=== PATIENT | male | born 1950 | race Caucasian/White ===

== ENCOUNTER → 2016-12-18 | Outpatient (CLI) | payer OTHER ==
[~2016-12-18] MED LIST: B-COTAB18 PO; CALC500T83 PO; CALC600T24 PO; CHOL100010 PO; DOXY100C2 PO; EPP3/2 IM; HYOS1TAB PO; INSPMPNVLG; LATA0.5S OPL; MULT-506 PO
[2016-12-18 19:26] LABS: ALT/SGPT 36 U/L (12-78); AST/SGOT 24 U/L (15-37); BLOOD UREA NITROGEN 17 mg/dl (7-18); BUN/CREATININE RATIO 18.8 (10-20); CALCIUM 8.7 mg/dl (8.5-10.1); CARBON DIOXIDE 28 mmol/L (21-32); CHLORIDE 104 mmol/L (98-107); CREATININE 0.91 mg/dl (0.60-1.40); GLUCOSE 176 mg/dl (70-99); POTASSIUM 4.1 mmol/L (3.5-5.1); SODIUM 140 mmol/L (136-145)
[2016-12-18 19:34] LABS: RATIO 16.3 mcg/mg (0-30.0)
[2016-12-18 19:41] LABS: ALB/GLOB RATIO 1.2 (0.9-2); ALKALINE PHOSPHATASE 144 U/L (45-117); CHOLESTEROL 140 mg/dl (0-200); CHOLESTEROL/HDL RATIO 1.6; HDL CHOLESTEROL 85 mg/dl; LDL CHOLESTEROL CALCULATED 36 mg/dl; TRIGLYCERIDES 97 mg/dl (0-150); VERY LOW DENSITY LIPOPROT CALC 19 mg/dl
[2016-12-19 06:17] LABS: ESTIMATED AVERAGE GLUCOSE 174 mg/dl; HA1C FLAG Normal (Normal)
== END | disposition home or self-care (01) ==
LOC: C.LAB 18:27
PROVIDERS: ATTEND Nurse Practitioner Adult Health
DX: R97.20 Elevated prostate specific antigen [PSA] (principal); E10.9 Type 1 diabetes mellitus without complications

== ENCOUNTER 2017-02-11 11:32 | Inpatient (IN) | payer OTHER ==
[~2017-02-11] VITALS: Ht 177.8 cm; Wt 67.1 kg
[~2017-02-11 11:32] MED LIST changes: -CALC600T24 PO; -DOXY100C2 PO; -EPP3/2 IM; -HYOS1TAB PO; -LATA0.5S OPL
--- NOTE | 2017-02-11 11:47 | EMERGENCY ROOM VISIT NOTE ---
History Report prepared by Ravinder: Jamaica Balderas Under the Supervision of: Dr. James Gupta D.O. First contact with patient: 11:39 Chief Complaint: BRADYCARDIA Stated Complaint: LOW HEART RATE Nursing Triage Summary: Pt sent by Dr. Bergeron. Lightheaded when standing. Denies cp or sob. SOB yesterday when mowing the grass. Reportedly pt is in a complete heart block, sent for pacemaker. History of Present Illness The patient is a 66 year old male who presents to the Emergency Room with complaints of dizziness and palpitations. The patient is a 66-year-old male who started noticing yesterday that he was very short of breath especially with exertion. Here members trying to both on when he started having dizziness and difficulty breathing. The patient states he checked his blood pressure through the night with a blood pressure machine and he noticed that his pulse rate was very low. 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 The patient presents with an EKG as an outpatient as reveal a third-degree heart block with an underlying right bundle-branch block pattern. 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 He denies having any fevers. He denies having any recent illnesses or joint aches. The patient is a diabetic but is never had similar symptoms in the past. The patient denies nausea or vomiting. He states his symptoms are significantly improved at rest. Source of History: patient Onset: yesterday Position: other (global) Quality: other (dizziness, palpitations) Timing: other (persistent) Modifying Factors (Relieving): rest Associated Symptoms: + SOB, No fevers, No nausea, No vomiting Note: Pt reports slow heart rate. Pt denies recent illness or joint ache. Review of Systems See HPI for pertinent positives & negatives. A total of 10 systems reviewed and were otherwise negative. Past Medical & Surgical Medical Problems: (1) Celiac disease (2) Complete heart block (3) Diabetes type I (4) Glaucoma Family History Diabetes mellitus Kidney disease Kidney stones Social History Smoking Status: Never Smoker Smokeless Tobacco Use: No Alcohol Use: occasionally Drug Use: none Marital Status: Housing Status: lives with significant other Current/Historical Medications Scheduled B-Complex Vitamins (Vitamin B Complex), 1 TAB PO QAM Calcium W/ Vitamin D (Calcium/Vitamin D), 1 TAB PO 2XWK Cholecalciferol (Vitamin D), 4,000 UNITS PO QAM Doxycycline Hyclate (Vibramycin), 1 CAP PO UD Insulin Aspart (novoLOG INSULIN PUMP ), 1 EA N/A UD Latanoprost (Xalatan 0.005% Oph Susan), 1 DROPS OPL HS Multivitamin (Multivitamin), 1 TAB PO QAM Scheduled PRN Epinephrine (Epipen), 0.3 MG IM UD PRN for bee sting Hyoscyamine Sulfate (Levsin), 0.125 MG PO TID PRN for bloating, GI discomfort Allergies Coded Allergies: BEE STING (Verified Allergy, Severe, anaphylaxis, 02/11/17) Latex1 -Allergic Contact Dermititis (Verified Adverse Reaction, Mild, BAD TASTE IN MOUTH, 03/29/16) Physical Exam Vital Signs Date Time Temp Pulse Resp B/P Pulse Ox O2 Delivery O2 Flow Rate FiO2 02/11/17 12:17 34 14 141/54 100 Nasal Cannula 2.0 02/11/17 12:04 34 02/11/17 12:02 36 12 135/51 100 02/11/17 11:55 99 Nasal Cannula 2.0 02/11/17 11:55 99 Nasal Cannula 2.0 02/11/17 11:47 44 02/11/17 11:35 36.4 38 18 161/70 98 Room Air Physical Exam GENERAL: Patient is awake alert in no acute distress patient is resting comfortably and showing no signs of anxiety EYES: The conjunctivae are clear. The pupils are round and reactive. EARS, NOSE, MOUTH AND THROAT: The nose is without any evidence of any deformity. Mucous membranes are moist tongue is midline NECK: The neck is nontender and supple. RESPIRATORY: Normal respiratory effort is noted there is no evidence of wheezing rhonchi or rales CARDIOVASCULAR: Bradycardic rate was noted auscultation. No definite murmur was noted. GASTROINTESTINAL: The abdomen is soft. Bowel sounds are present in all quadrants. Abdomen is nontender MUSCULOSKELETAL/EXTREMITIES: There is no evidence of gross deformity full range of motion is noted in the hips and shoulders SKIN: There is no obvious evidence of any rash. There are no petechiae, pallor or cyanosis noted. NEUROLOGIC: Patient is awake alert and oriented x3. Medical Decision & Procedures ER Provider Diagnostic Interpretation: X-ray results as stated below per interpretation by me and the radiologist. SINGLE VIEW CHEST CLINICAL HISTORY: Dyspnea. FINDINGS: An AP, portable, upright chest radiograph is obtained. No prior studies are available for comparison at the time of dictation. The examination is degraded by portable technique and patient rotation. Cardiac pads are in place. The cardiomediastinal silhouette is unremarkable. The lungs and pleural spaces are clear. No pneumothorax is seen. The bony thorax is grossly intact. IMPRESSION: No acute cardiopulmonary abnormality. Electronically signed by: Ezio Hammer M.D. 02/11/2017 12:03 PM Dictated Date/Time: 02/11/2017 12:02 PM Laboratory Results 02/11/17 11:51 Red Blood Count 4.52, Mean Corpuscular Volume 95.8, Mean Corpuscular Hemoglobin 32.5, Mean Corpuscular Hemoglobin Concent 33.9, Mean Platelet Volume 11.5, Neutrophils (%) (Auto) 61.7, Lymphocytes (%) (Auto) 28.3, Monocytes (%) (Auto) 8.7, Eosinophils (%) (Auto) 0.8, Basophils (%) (Auto) 0.3, Neutrophils # (Auto) 3.71, Lymphocytes # (Auto) 1.70, Monocytes # (Auto) 0.52, Eosinophils # (Auto) 0.05, Basophils # (Auto) 0.02 02/11/17 11:51 Test 02/11/17 11:51 02/11/17 11:56 White Blood Count 6.01 K/uL (4.8-10.8) Red Blood Count 4.52 M/uL (4.7-6.1) Hemoglobin 14.7 g/dL (14.0-18.0) Hematocrit 43.3 % (42-52) Mean Corpuscular Volume 95.8 fL (80-100) Mean Corpuscular Hemoglobin 32.5 pg (25-34) Mean Corpuscular Hemoglobin Concent 33.9 g/dl (32-36) Platelet Count 180 K/uL (130-400) Mean Platelet Volume 11.5 fL (7.4-10.4) Neutrophils (%) (Auto) 61.7 % Lymphocytes (%) (Auto) 28.3 % Monocytes (%) (Auto) 8.7 % Eosinophils (%) (Auto) 0.8 % Basophils (%) (Auto) 0.3 % Neutrophils # (Auto) 3.71 K/uL (1.4-6.5) Lymphocytes # (Auto) 1.70 K/uL (1.2-3.4) Monocytes # (Auto) 0.52 K/uL (0.11-0.59) Eosinophils # (Auto) 0.05 K/uL (0-0.5) Basophils # (Auto) 0.02 K/uL (0-0.2) RDW Standard Deviation 47.6 fL (36.4-46.3) RDW Coefficient of Variation 13.5 % (11.5-14.5) Immature Granulocyte % (Auto) 0.2 % Immature Granulocyte # (Auto) 0.01 K/uL (0.00-0.02) Prothrombin Time 10.8 SECONDS (9.0-12.0) Prothromb Time International Ratio 1.0 (0.9-1.1) Activated Partial Thromboplast Time 26.9 SECONDS (21.0-31.0) Partial Thromboplastin Ratio 1.0 Est Creatinine Clear Calc Drug Dose 76.1 ml/min Estimated GFR () 101.8 Estimated GFR (Non- 87.9 BUN/Creatinine Ratio 21.7 (10-20) Calcium Level 9.3 mg/dl (8.5-10.1) Magnesium Level 2.0 mg/dl (1.8-2.4) Total Bilirubin 0.7 mg/dl (0.2-1) Aspartate Amino Transf (AST/SGOT) 110 U/L (15-37) Alanine Aminotransferase (ALT/SGPT) 152 U/L (12-78) Alkaline Phosphatase 193 U/L (45-117) Total Creatine Kinase 105 U/L (39-308) Creatine Kinase MB 0.7 ng/ml (0.5-3.6) Creatine Kinase MB Ratio 0.7 (0-3.0) Troponin I < 0.015 ng/ml (0-0.045) Total Protein 7.2 gm/dl (6.4-8.2) Albumin 4.0 gm/dl (3.4-5.0) Globulin 3.2 gm/dl (2.5-4.0) Albumin/Globulin Ratio 1.3 (0.9-2) Thyroid Stimulating Hormone (TSH) 3.230 uIu/ml (0.300-4.500) Free Thyroxine 0.99 ng/dl (0.80-1.60) Lyme Disease IgG Antibody NEG (NEG) Lyme Disease IgM Antibody NEG (NEG) Bedside Hemoglobin 15.0 g/dl (14.0-18.0) Bedside Hematocrit 44 % (42-52) Bedside Sodium 140 mEq/L (135-144) Bedside Potassium 4.1 mEq/L (3.3-5.0) Bedside Chloride 100 mEq/L (101-112) Bedside Total CO2 24 mEq/l (24-31) Anion Gap 21.0 mmol/L (16-25) Bedside Blood Urea Nitrogen 20 mg/dl (7-18) Bedside Creatinine 0.7 mg/dl (0.6-1.3) Bedside Glucose (other) 191 mg/dl (70-99) Bedside Ionized Calcium (Ashley) 1.24 mmol/l (1.12-1.32) Laboratory results per my review. ECG Indication: bradycardia Rate (beats per minute): 39 Rhythm: other (second-degree heart block type II) Findings: LBBB, ST depression (Inferior) Comparison ECG Date: changes are new compared to 04/18/2010 ED Course 1140: The patient was evaluated in room B1. A complete history and physical examination were performed. 1153: I discussed the patient's case with Dr. Mckeon, [facility] - cardiology. He would like infectious diseases to evaluate the patient. He would like the patient to be admitted to the hospital. 1218: I discussed the patient's case with Dr. Ramon [facility] - hosptalist. The patient will be evaluated for further management. 1225: Upon reevaluation, the patient is doing well. I discussed results and treatment plan with him. He verbalizes agreement and understanding. The patient will be evaluated for further management and care. 1302: I reevaluated the patient. He is doing well. Medical Decision Prior records/ancillary studies reviewed. Triage Nursing notes reviewed. Additional history obtained from the patient's significant other. The patient's history was concerning for palpitations. Differential diagnosis: Etiologies such as premature contractions, electrolyte abnormality, cardiac dysrhythmia, thyroid dysfunction, pulmonary embolism, infection, gastrointestinal, as well as others were entertained. The patient is a 66-year-old male who presented to emergency department for evaluation of shortness of breath with exertion and low pulse rate. The patient states that over the last few days he's been noticing dyspnea exertion when he checked his pulse rate he noticed it was low. 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 He was sent to the emergency department for evaluation of symptomatic bradycardia. The patient was stable on the radiographer cardiac catheterization. Transcutaneous pacemaker was placed. I discussed the patient's laboratory and radiographic studies with him. He was evaluated in the emergency department by his primary stocking and box shop supervisor as well as the on-call [facility] hospitalist. The patient remains stable at this time will be kept in the hospital for further evaluation and for possible pacemaker evaluation. Consults Time Called: 1145 Consulting Physician: Dr. Mckeon [facility] cardiology Returned Call: 1159 I discussed the patient's case with him. He would like infectious diseases to evaluate the patient. He would like the patient to be admitted to the hospital. Additional Consults: Time Called: 1212 Consulted Physician: Dr. Ramon [facility] hosptalist Returned Call: 1212 Additional Comments: I discussed the patient's case with him. The patient will be evaluated for further management. Impression Primary Impression: Third degree heart block Additional Impressions: Palpitations Symptomatic bradycardia RIVAS (dyspnea on exertion) Scribe Attestation The scribe's documentation has been prepared under my direction and personally reviewed by me in its entirety. I confirm that the note above accurately reflects all work, treatment, procedures, and medical decision making performed by me. Departure Information Dispostion Being Evaluated By Hospitalist Referrals Edison Godinez M.D. (PCP) Patient Instructions [facility] Problem Qualifiers
[2017-02-11] MEDS ORDERED: CALC600T24 PO ×2 (12:04)
[2017-02-11] MEDS ORDERED: DOXY100C2 PO ×2 (12:04)
--- NOTE | 2017-02-11 12:04 | DIAGNOSTIC IMAGING REPORT ---
SINGLE VIEW CHEST CLINICAL HISTORY: Dyspnea. FINDINGS: An AP, portable, upright chest radiograph is obtained. No prior studies are available for comparison at the time of dictation. The examination is degraded by portable technique and patient rotation. Cardiac pads are in place. The cardiomediastinal silhouette is unremarkable. The lungs and pleural spaces are clear. No pneumothorax is seen. The bony thorax is grossly intact. IMPRESSION: No acute cardiopulmonary abnormality. Electronically signed by: Ezio Hammer M.D. 02/11/2017 12:03 PM Dictated Date/Time: 02/11/2017 12:02 PM
[2017-02-11] MEDS ORDERED: LATA0.5S OPL ×2 (12:05)
[2017-02-11] MEDS ORDERED: HYOS1TAB PO ×2 (12:06)
[2017-02-11] MEDS ORDERED: EPP3/2 IM ×2 (12:06)
[2017-02-11 12:08] LABS: BASO % 0.3 %; BASO ABS # 0.02 K/uL (0-0.2); COMPLETE YES; EOS % 0.8 %; HEMATOCRIT 43.3 % (42-52); IG% 0.2 %; LYMPH % 28.3 %; MEAN CELL VOLUME 95.8 fL (80-100); MEAN CORPUSCULAR HEMOGLOBIN 32.5 pg (25-34); MEAN CORPUSCULAR HGB CONC 33.9 g/dl (32-36); MEAN PLATELET VOLUME 11.5 fL (7.4-10.4); MONO % 8.7 %; NEUT % 61.7 %; PLATELET COUNT 180 K/uL (130-400); RED BLOOD COUNT 4.52 M/uL (4.7-6.1); WHITE BLOOD COUNT 6.01 K/uL (4.8-10.8)
[2017-02-11 12:09] LABS: ISTAT CREATININE 0.7 mg/dl (0.6-1.3); ISTAT IONIZED CALCIUM 1.24 mmol/l (1.12-1.32)
[2017-02-11 12:19] LABS: PROTHROMBIN TIME (PATIENT) 10.8 SECONDS (9.0-12.0)
[2017-02-11 12:29] LABS: ALT/SGPT 152 U/L (12-78); AST/SGOT 110 U/L (15-37); BLOOD UREA NITROGEN 19 mg/dl (7-18); BUN/CREATININE RATIO 21.7 (10-20); CALCIUM 9.3 mg/dl (8.5-10.1); CARBON DIOXIDE 28 mmol/L (21-32); CHLORIDE 106 mmol/L (98-107); CREATININE 0.89 mg/dl (0.60-1.40); GLUCOSE 184 mg/dl (70-99); SODIUM 140 mmol/L (136-145)
[2017-02-11 12:37] LABS: ALB/GLOB RATIO 1.3 (0.9-2); ALKALINE PHOSPHATASE 193 U/L (45-117); CKMB/CK RATIO 0.7 (0-3.0)
[2017-02-11 13:04] LABS: LYME DISEASE AB IGG NEG (NEG)
[2017-02-11 13:07] LABS: LYME DISEASE AB IGM NEG (NEG)
[2017-02-11] MEDS ORDERED: MAGNESIUM HYDROXIDE SUSP 30 ML UDC PO PRN (14:00)
[2017-02-11] MEDS ORDERED: NovoLOG INSULIN PUMP SCH (14:00)
[2017-02-11] MEDS ORDERED: ACETAMINOPHEN 325 MG TAB PO PRN ×2 (14:00→16:30)
[2017-02-11] MEDS ORDERED: HYOSCYAMINE SULFATE 0.125 MG SL TAB PO PRN (14:00)
[2017-02-11] MEDS ORDERED: ALUMINUM/MAGNESIUM/SIMETH (MAALOX MAX) 30 ML UDC PO PRN (14:00)
[2017-02-11] MEDS ORDERED: ONDANSETRON INJ 2 MG/ML 2 ML VIAL IV PRN (14:00)
[2017-02-11] MEDS ORDERED: EPINEPHRINE ADULT AUTO-INJECT 0.3 MG SYR IM PRN (14:00)
[2017-02-11] MEDS ORDERED: LACTATED RINGER'S 1000ML 1,000 ML IV ONE (14:12)
[2017-02-11] MEDS ORDERED: FENTANYL CITRATE INJ 50 MCG/1 ML 2 ML VIAL ONE (14:16)
[2017-02-11] MEDS ORDERED: BACITRACIN 50000 UNIT VIAL ONE (14:17)
[2017-02-11] MEDS ORDERED: BACITRACIN OINT 0.9 GM PKT ONE (14:17)
[2017-02-11] MEDS ORDERED: MIDAZOLAM HCL 5 MG/ML 1 ML VIAL ONE (14:17)
[2017-02-11] MEDS ORDERED: LIDOCAINE HCL 1% 20 ML VIAL ONE (14:17)
[2017-02-11 14:40] VITALS: BP 126/28; PULSE 35; O2SAT 99; BMI 21.4
[2017-02-11] MEDS ORDERED: KEFZOL SPECIAL PROCEDURE STOCK 1 GM ADDVIAL IV ONE (15:03)
--- NOTE | 2017-02-11 15:10 | Cardiology Consultation ---
Cardiology Consultation Date of Consultation: February 11, 2017. Requesting Physician: Dr. Ramon Reason for Consultation: CHB Pt evaluation today including: conversation w/ patient, conversation w/ family , physical exam, lab review, review of studies, review of inpatient medication list, conversation w/ attending History of Present Illness This is a very pleasant 66-year-old gentleman who presented to the emergency room with dizziness and palpitations. He noticed only the day before admission that he was having a lot of difficulty with dizziness and was very short of breath with activity. On his blood pressure machine at home he noticed that his heart rate was very slow. He therefore went to see Dr. Godinez and since I was in the office I did review his situation and look at his electrocardiogram and we sent to the emergency room. On electrocardiography he had complete heart block. A consideration was given for Lyme disease although it seemed unlikely. He was admitted for evaluation. He reports no exertional chest discomfort, no presyncope and no syncope. Past Medical/Surgical History (1) Diabetes type I (2) Celiac disease (3) Glaucoma Family History Diabetes mellitus Kidney disease Kidney stones Social History Smoking Status: Never Smoker History of Alcohol Use: Yes (1-2 BEERS/NIGHT) Review of Systems Constitutional: No fever, No weakness, No weight loss Respiratory: + shortness of breath, No cough, No dyspnea on exertion, No wheezing Cardiac: + see HPI, No PND, No chest pain, No edema, No orthopnea, No palpitations Abdomen: No GI bleeding, No diarrhea, No nausea, No pain, No vomiting Male : No nocturia more than once/night, No sexual dysfunction, No slowing stream, No urinary frequency Neurologic: No balance problems, No numbness/tingling, No paralysis, No weakness Heme: No abnormal bleeding/bruising, No clotting problems Endo: No fatigue Skin: No problem reported All Other Systems: Reviewed and Negative Allergies Coded Allergies: BEE STING (Verified Allergy, Severe, anaphylaxis, 02/11/17) Latex1 -Allergic Contact Dermititis (Verified Adverse Reaction, Mild, BAD TASTE IN MOUTH, 03/29/16) Medications Current Inpatient Medications Medications (Trade) Dose Ordered Sig/Trina Route Start Time Stop Time Status Last Admin Dose Admin Acetaminophen (Tylenol Tab) 650 mg Q4H PRN PO 02/11/17 14:00 03/13/17 13:59 UNV Al Hydrox/Mg Hydrox/Simethicone (Maalox Max Susp) 15 ml Q4H PRN PO 02/11/17 14:00 03/13/17 13:59 UNV Magnesium Hydroxide (Milk Of Magnesia Susp) 30 ml Q12H PRN PO 02/11/17 14:00 03/13/17 13:59 UNV Ondansetron HCl (Zofran Inj) 4 mg Q6H PRN IV 02/11/17 14:00 03/13/17 13:59 UNV Cholecalciferol (Vitamin D Tab) 4,000 inter.unit QAM PO 02/12/17 09:00 03/14/17 08:59 UNV Epinephrine (Epipen) 0.3 mg UD PRN IM 02/11/17 14:00 03/13/17 13:59 UNV Hyoscyamine Sulfate (Levsin Tab) 0.125 mg TID PRN PO 02/11/17 14:00 03/13/17 13:59 UNV Insulin Aspart (novoLOG INSULIN PUMP) 1 ea UD N/A 02/11/17 14:00 03/13/17 13:59 UNV Latanoprost (Xalatan Oph Soln) 1 drops HS OPL 02/11/17 21:00 03/13/17 20:59 UNV Multivitamins (Multivitamin Tab) 1 tab QAM PO 02/12/17 09:00 03/14/17 08:59 UNV Non-Formulary Medication (B-Complex Vitamins (Vitamin B Complex)) 1 tab QAM PO 02/12/17 09:00 03/14/17 08:59 UNV Non-Formulary Medication (Calcium W/ Vitamin D (Calcium/Vitamin D)) 1 tab 2XWK PO 02/11/17 14:00 03/13/17 13:59 UNV Cefazolin Sodium 1000 mg 1,000 mg PREOP IV 02/12/17 06:00 02/12/17 06:01 UNV Lactated Ringer's (Lr 1000ml) 1,000 ml @ 15 mls/hr Q24H ONCE IV 02/11/17 14:12 02/12/17 14:11 UNV Physical Exam Vital Signs Past 12 Hours Date Time Temp Pulse Resp B/P Pulse Ox O2 Delivery O2 Flow Rate FiO2 02/11/17 13:49 36 16 135/58 100 2.0 02/11/17 13:05 33 14 140/60 99 Room Air 02/11/17 12:51 36 18 121/68 100 02/11/17 12:30 38 16 119/60 100 Nasal Cannula 2.0 02/11/17 12:17 34 14 141/54 100 Nasal Cannula 2.0 02/11/17 12:04 34 02/11/17 12:02 36 12 135/51 100 02/11/17 11:55 99 Nasal Cannula 2.0 02/11/17 11:55 99 Nasal Cannula 2.0 02/11/17 11:47 44 02/11/17 11:35 36.4 38 18 161/70 98 Room Air Constitutional: General Apperance: heathly-appearing Level of Distress: NAD Psychiatric: Mental Status: active & alert Head: normocephalic Eyes: EOM: EOMI ENMT: normal ENT inspection, hearing grossly normal Neck: supple, no masses Lungs: Respiratory effort: no dyspnea, good air movement Auscultation: breath sounds normal, no wheezing Cardiovascular: Heart Auscultation: RRR, no murmurs, no rubs, no gallops, bradycardia Peripheral Pulses: Bruits: none appreciated Abdomen: Bowel Sounds: normal Inspection & Palpation: soft, no tenderness, guarding & rebound, no masses Musculoskeletal: normal strength (5/5 throughout) Extremities: no edema Neurologic: Cranial Nerves: grossly intact Sensation: grossly intact Data Laboratory Results: Last 24 Hours Test 02/11/17 11:51 02/11/17 11:56 02/11/17 14:54 White Blood Count 6.01 K/uL Red Blood Count 4.52 M/uL Hemoglobin 14.7 g/dL Hematocrit 43.3 % Mean Corpuscular Volume 95.8 fL Mean Corpuscular Hemoglobin 32.5 pg Mean Corpuscular Hemoglobin Concent 33.9 g/dl Platelet Count 180 K/uL Mean Platelet Volume 11.5 fL Neutrophils (%) (Auto) 61.7 % Lymphocytes (%) (Auto) 28.3 % Monocytes (%) (Auto) 8.7 % Eosinophils (%) (Auto) 0.8 % Basophils (%) (Auto) 0.3 % Neutrophils # (Auto) 3.71 K/uL Lymphocytes # (Auto) 1.70 K/uL Monocytes # (Auto) 0.52 K/uL Eosinophils # (Auto) 0.05 K/uL Basophils # (Auto) 0.02 K/uL RDW Standard Deviation 47.6 fL RDW Coefficient of Variation 13.5 % Immature Granulocyte % (Auto) 0.2 % Immature Granulocyte # (Auto) 0.01 K/uL Prothrombin Time 10.8 SECONDS Prothromb Time International Ratio 1.0 Activated Partial Thromboplast Time 26.9 SECONDS Partial Thromboplastin Ratio 1.0 Sodium Level 140 mmol/L Potassium Level 4.0 mmol/L Chloride Level 106 mmol/L Carbon Dioxide Level 28 mmol/L Anion Gap 6.0 mmol/L 21.0 mmol/L Blood Urea Nitrogen 19 mg/dl Creatinine 0.89 mg/dl Est Creatinine Clear Calc Drug Dose 76.1 ml/min Estimated GFR () 101.8 Estimated GFR (Non- 87.9 BUN/Creatinine Ratio 21.7 Random Glucose 184 mg/dl Calcium Level 9.3 mg/dl Magnesium Level 2.0 mg/dl Total Bilirubin 0.7 mg/dl Aspartate Amino Transf (AST/SGOT) 110 U/L Alanine Aminotransferase (ALT/SGPT) 152 U/L Alkaline Phosphatase 193 U/L Total Creatine Kinase 105 U/L Creatine Kinase MB 0.7 ng/ml Creatine Kinase MB Ratio 0.7 Troponin I < 0.015 ng/ml Total Protein 7.2 gm/dl Albumin 4.0 gm/dl Globulin 3.2 gm/dl Albumin/Globulin Ratio 1.3 Thyroid Stimulating Hormone (TSH) 3.230 uIu/ml Free Thyroxine 0.99 ng/dl Lyme Disease IgG Antibody NEG Lyme Disease IgM Antibody NEG Bedside Hemoglobin 15.0 g/dl Bedside Hematocrit 44 % Bedside Sodium 140 mEq/L Bedside Potassium 4.1 mEq/L Bedside Chloride 100 mEq/L Bedside Total CO2 24 mEq/l Bedside Blood Urea Nitrogen 20 mg/dl Bedside Creatinine 0.7 mg/dl Bedside Glucose (other) 191 mg/dl Bedside Ionized Calcium (Ashley) 1.24 mmol/l Bedside Glucose 94 mg/dl EKG: Sinus rhythm at 90 bpm with complete heart block and a ventricular escape rhythm at 35 bpm Telemetry reviewed: Periods of 2-1 A-V block as well as periods of complete heart block with a ventricular escape rhythm in the mid 30s Assessment & Plan #1. Complete heart block: He presented in complete heart block with a heart rate in the mid-30s and a wide complex rhythm, on telemetry monitoring he has had periods of 2-1 AV conduction with a very similar heart rate. His electrocardiogram from 2009 shows left anterior fascicular block with a QRS duration of 118 ms. 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 It does not seem likely that this is Lyme disease despite his history of a tick bite, he was treated with several doses of doxycycline after the tick bike, did not have a characteristic rash and is Lyme titer is currently negative. I think the best option is to proceed with pacemaker implantation. I discussed the indications, procedure, risks and alternatives of pacemaker implantation with him and his and he understands and agrees to proceed. Consent obtained. Thank you for allowing me to participate in his care.
[2017-02-11] MEDS ORDERED: GLUCOSE 40% GEL 15 GM TUBE PO PRN (16:00)
[2017-02-11] MEDS ORDERED: DEXTROSE 50% 50 ML SYR IV PRN (16:00)
[2017-02-11] MEDS ORDERED: INSULIN ASPART 100 UNITS/ML VIAL SC PRN (16:00)
[2017-02-11] MEDS ORDERED: GLUCOSE 10 TABS/TUBE PO PRN (16:00)
[2017-02-11] MEDS ORDERED: GLUCAGON FOR INJ 1 MG VIAL SQ PRN (16:00)
--- NOTE | 2017-02-11 16:22 | Procedure Note ---
Pre-Mod Sedation Assessment General Date of Moderate Sedation: February 11, 2017. Vital Signs: Vital Signs Past 12 Hours Date Time Temp Pulse Resp B/P Pulse Ox O2 Delivery O2 Flow Rate FiO2 02/11/17 13:49 36 16 135/58 100 2.0 02/11/17 13:05 33 14 140/60 99 Room Air 02/11/17 12:51 36 18 121/68 100 02/11/17 12:30 38 16 119/60 100 Nasal Cannula 2.0 02/11/17 12:17 34 14 141/54 100 Nasal Cannula 2.0 02/11/17 12:04 34 02/11/17 12:02 36 12 135/51 100 02/11/17 11:55 99 Nasal Cannula 2.0 02/11/17 11:55 99 Nasal Cannula 2.0 02/11/17 11:47 44 02/11/17 11:35 36.4 38 18 161/70 98 Room Air Review Cardiovascular: regular rate, rhythm, + bradycardia Abdomen: normal bowel sounds Lungs: lungs clear Pre-Sedation Airway Assessment Smoking Status: Never Smoker Procedure Planning Contraindications-for Mod Sed: None Yes Notes The planned sedation has been discussed with the patient and consent obtained. I have identified the patient, determined the appropriateness of sedation and have assessed the patient immediately prior to the procedure. All medicine(s) and interventions are by my order.
--- NOTE | 2017-02-11 16:28 | Cardiology Procedure Brief Nt ---
Preliminary Cardiology Note Procedure Date February 11, 2017. 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
[2017-02-11] MEDS ORDERED: KETOROLAC TROMETHAMINE 10 MG TAB PO PRN (16:30)
[2017-02-11 16:31] VITALS: BP 144/76; PULSE 84; TEMP 36.6; O2SAT 97
--- NOTE | 2017-02-11 16:35 | History and Physical ---
History & Physical Date & Time of Service: February 11, 2017 at 16:35 Chief Complaint: Complete Heart Block Primary Care Physician: Edison Godinez M.D. Family History Diabetes mellitus Kidney disease Kidney stones Social History Smoking Status: Never Smoker Smokeless Tobacco Use: No Drug Use: none Marital Status: Multi-Drug Resistant Organisms History of MDRO: No Allergies Coded Allergies: BEE STING (Verified Allergy, Severe, anaphylaxis, 02/11/17) Latex1 -Allergic Contact Dermititis (Verified Adverse Reaction, Mild, BAD TASTE IN MOUTH, 03/29/16) Home Medications Scheduled B-Complex Vitamins (Vitamin B Complex), 1 TAB PO QAM Calcium W/ Vitamin D (Calcium/Vitamin D), 1 TAB PO 2XWK Cholecalciferol (Vitamin D), 4,000 UNITS PO QAM Doxycycline Hyclate (Vibramycin), 1 CAP PO UD Insulin Aspart (novoLOG INSULIN PUMP ), 1 EA N/A UD Latanoprost (Xalatan 0.005% Oph Susan), 1 DROPS OPL HS Multivitamin (Multivitamin), 1 TAB PO QAM Scheduled PRN Epinephrine (Epipen), 0.3 MG IM UD PRN for bee sting Hyoscyamine Sulfate (Levsin), 0.125 MG PO TID PRN for bloating, GI discomfort Physical Exam Vital Signs Date Time Temp Pulse Resp B/P Pulse Ox O2 Delivery O2 Flow Rate FiO2 02/11/17 16:21 60 18 139/75 97 Room Air 02/11/17 16:07 60 18 133/77 98 Mask 3 02/11/17 14:40 35 18 126/28 99 Nasal Cannula 2.0 02/11/17 13:49 36 16 135/58 100 2.0 02/11/17 13:05 33 14 140/60 99 Room Air 02/11/17 12:51 36 18 121/68 100 02/11/17 12:30 38 16 119/60 100 Nasal Cannula 2.0 02/11/17 12:17 34 14 141/54 100 Nasal Cannula 2.0 02/11/17 12:04 34 02/11/17 12:02 36 12 135/51 100 02/11/17 11:55 99 Nasal Cannula 2.0 02/11/17 11:55 99 Nasal Cannula 2.0 02/11/17 11:47 44 5/2/17 11:35 36.4 38 18 161/70 98 Room Air Diagnostics Laboratory Results Results Past 24 Hours Test 02/11/17 11:51 02/11/17 11:56 02/11/17 14:54 02/11/17 16:15 Range/Units White Blood Count 6.01 4.8-10.8 K/uL Red Blood Count 4.52 4.7-6.1 M/uL Hemoglobin 14.7 14.0-18.0 g/dL Hematocrit 43.3 42-52 % Mean Corpuscular Volume 95.8 80-100 fL Mean Corpuscular Hemoglobin 32.5 25-34 pg Mean Corpuscular Hemoglobin Concent 33.9 32-36 g/dl Platelet Count 180 130-400 K/uL Mean Platelet Volume 11.5 7.4-10.4 fL Neutrophils (%) (Auto) 61.7 % Lymphocytes (%) (Auto) 28.3 % Monocytes (%) (Auto) 8.7 % Eosinophils (%) (Auto) 0.8 % Basophils (%) (Auto) 0.3 % Neutrophils # (Auto) 3.71 1.4-6.5 K/uL Lymphocytes # (Auto) 1.70 1.2-3.4 K/uL Monocytes # (Auto) 0.52 0.11-0.59 K/uL Eosinophils # (Auto) 0.05 0-0.5 K/uL Basophils # (Auto) 0.02 0-0.2 K/uL RDW Standard Deviation 47.6 36.4-46.3 fL RDW Coefficient of Variation 13.5 11.5-14.5 % Immature Granulocyte % (Auto) 0.2 % Immature Granulocyte # (Auto) 0.01 0.00-0.02 K/uL Prothrombin Time 10.8 9.0-12.0 SECONDS Prothromb Time International Ratio 1.0 0.9-1.1 Activated Partial Thromboplast Time 26.9 21.0-31.0 SECONDS Partial Thromboplastin Ratio 1.0 Sodium Level 140 136-145 mmol/L Potassium Level 4.0 3.5-5.1 mmol/L Chloride Level 106 98-107 mmol/L Carbon Dioxide Level 28 21-32 mmol/L Anion Gap 6.0 21.0 16-25 mmol/L Blood Urea Nitrogen 19 7-18 mg/dl Creatinine 0.89 0.60-1.40 mg/dl Est Creatinine Clear Calc Drug Dose 76.1 ml/min Estimated GFR () 101.8 Estimated GFR (Non- 87.9 BUN/Creatinine Ratio 21.7 10-20 Random Glucose 184 70-99 mg/dl Calcium Level 9.3 8.5-10.1 mg/dl Magnesium Level 2.0 1.8-2.4 mg/dl Total Bilirubin 0.7 0.2-1 mg/dl Aspartate Amino Transf (AST/SGOT) 110 15-37 U/L Alanine Aminotransferase (ALT/SGPT) 152 12-78 U/L Alkaline Phosphatase 193 45-117 U/L Total Creatine Kinase 105 39-308 U/L Creatine Kinase MB 0.7 0.5-3.6 ng/ml Creatine Kinase MB Ratio 0.7 0-3.0 Troponin I < 0.015 0-0.045 ng/ml Total Protein 7.2 6.4-8.2 gm/dl Albumin 4.0 3.4-5.0 gm/dl Globulin 3.2 2.5-4.0 gm/dl Albumin/Globulin Ratio 1.3 0.9-2 Thyroid Stimulating Hormone (TSH) 3.230 0.300-4.500 uIu/ml Free Thyroxine 0.99 0.80-1.60 ng/dl Lyme Disease IgG Antibody NEG NEG Lyme Disease IgM Antibody NEG NEG Bedside Hemoglobin 15.0 14.0-18.0 g/dl Bedside Hematocrit 44 42-52 % Bedside Sodium 140 135-144 mEq/L Bedside Potassium 4.1 3.3-5.0 mEq/L Bedside Chloride 100 101-112 mEq/L Bedside Total CO2 24 24-31 mEq/l Bedside Blood Urea Nitrogen 20 7-18 mg/dl Bedside Creatinine 0.7 0.6-1.3 mg/dl Bedside Glucose (other) 191 70-99 mg/dl Bedside Ionized Calcium (Ashley) 1.24 1.12-1.32 mmol/l Bedside Glucose 94 119 70-99 mg/dl Impression Assessment and Plan admit #[id number] Advanced Directives Existing Living Will: No Existing Power of Mold Maintenance Technician: No VTE Prophylaxis VTE Risk Assessment Done? Y/N: Yes Risk Level: Moderate
--- NOTE | 2017-02-11 16:40 | Procedure Note ---
Post-Mod Sedation Assessment General Date of Moderate Sedation February 11, 2017. Vital Signs: Vital Signs Past 12 Hours Date Time Temp Pulse Resp B/P Pulse Ox O2 Delivery O2 Flow Rate FiO2 02/11/17 16:31 36.6 84 16 144/76 97 Room Air 02/11/17 16:21 60 18 139/75 97 Room Air 02/11/17 16:07 60 18 133/77 98 Mask 3 02/11/17 14:40 35 18 126/28 99 Nasal Cannula 2.0 02/11/17 13:49 36 16 135/58 100 2.0 02/11/17 13:05 33 14 140/60 99 Room Air 02/11/17 12:51 36 18 121/68 100 02/11/17 12:30 38 16 119/60 100 Nasal Cannula 2.0 02/11/17 12:17 34 14 141/54 100 Nasal Cannula 2.0 02/11/17 12:04 34 02/11/17 12:02 36 12 135/51 100 02/11/17 11:55 99 Nasal Cannula 2.0 02/11/17 11:55 99 Nasal Cannula 2.0 02/11/17 11:47 44 02/11/17 11:35 36.4 38 18 161/70 98 Room Air Review - Discharge Criteria Vital Signs Stable: Yes Alert/Oriented/Conversant: Yes Returned to Baseline Mental St: Yes Nausea Absent/Minimal: Yes Pain/Discomfort/Absent/Minimal: Yes Normal/Baseline Respirations: Yes Active Bleeding?: No
--- NOTE | 2017-02-11 17:36 | HISTORY & PHYSICAL EXAMINATION ---
DATE OF ADMISSION: 02/11/2017 CHIEF COMPLAINT: Weakness. HISTORY OF PRESENT ILLNESS: The patient is a very pleasant 66-year-old male who presented to the ER after having seen his PCP this morning. He was found to be lightheaded and dizzy with standing. No chest pain, no shortness of breath. He was short of breath yesterday when mowing the grass. He saw his PCP this morning and was found to have a low heart rate. EKG appeared to be a complete heart block. He was immediately seen by cardiology who felt it is prudent to get emergently set up for a pacemaker; however, there was a question of whether or not this could be a manifestation of Lyme and help sort things out more expeditiously. He was sent to the ER for further evaluation. He notes in regards to the Lyme that he has "a tick magnet" and gets tick bites all the time. He tries to be somewhat vigilant but does not really have a routine tick checks. He however does not have any recent target rash, no fevers, no headache, and no new joint pain or swelling; and actually had a Lyme titer drawn this morning by his PCP that was negative. REVIEW OF SYSTEMS: Negative for any new symptoms. Positive for the fact that he and his were on vacation last week and he drank a lot more alcohol than he normally does probably 3-4 drinks at night. REVIEW OF SYSTEMS: Otherwise entirely negative except for as above. PAST MEDICAL HISTORY: Includes BPH, elevated TSH, hypothyroid, hypertension, irritable bowel and type 1 diabetes. MEDICATIONS: Calcium plus D 2 tabs weekly, EpiPen p.r.n., bee stings, latanoprost eyedrops, multivitamin daily, insulin pump with NovoLog controlled by him, vitamin B complex daily, and vitamin D 4000 international units daily. PAST SURGICAL HISTORY: Simply that of a colonoscopy. FAMILY HISTORY: He has got a family history of prostate cancer in his dad. SOCIAL HISTORY: He is never a smoker. 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 Generally social alcohol but a lot more than usual in the last week. ALLERGIES: INCLUDE BEE STING, LATEX. PHYSICAL EXAMINATION: VITAL SIGNS: Initial vitals showed a temp of 36.4, pulse 38, respiratory rate 18, blood pressure 161/70, and 98% on room air. GENERAL: He is awake, alert, oriented x3, pleasant, in no acute distress. HEENT: Normocephalic, atraumatic. Mucous membranes are moist. CARDIOVASCULAR: Regular, bradycardic. No rubs, murmurs, or gallops. LUNGS: Clear to auscultation bilaterally. No rales, rhonchi, or wheezes with good effort. ABDOMEN: Soft, nondistended, nontender, no masses or organomegaly. EXTREMITIES: Without cyanosis, clubbing or edema. No calf tenderness. NEUROLOGIC: Shows cranial nerves II-XII to be grossly intact. Gross motor and sensory are intact. SKIN: Shows no rashes, no pallor or icterus. The site of his recent tick bite is actually under knee his pacer pads, but I am able to get a good look at it and it simply looks like a small scab. There is no erythema. There is no surrounding erythema migrans type pattern whatsoever. There is no pustule. There is no underlying fluctuance. MUSCULOSKELETAL: Yields no gross lesions. MENTAL STATUS: Shows good recent and remote recall. Normal mood and affect. Good judgment and insight. He is pleasantly anxious but fitting with situation. LABORATORY AND DIAGNOSTICS: His EKG shows a 2:1 block and on the monitor, he occasionally slips into a complete heart block. His CBC shows a white count of 6.01, hemoglobin 14.7, platelets 180. Sodium 140, potassium 4, chloride 106, CO2 28, BUN 19, creatinine 0.89, calcium 9.3, glucose 184, mag 2, total bili 0.7, AST 110, ALT 152, alk phos 193 and about 2 months ago, his AST, ALT were normal and his alkaline phosphatase was like 144. CK total 105 with an MB of 0.7, troponin of less than 0.015. Albumin of 4, TSH 3.23, free T4 of 0.99. Lyme titer checked yet again is negative. PT of 10.8, PTT 26.9 and his chest x-ray showed no acute cardiopulmonary abnormality. ASSESSMENT AND PLAN: 1. Complete heart block. Certainly between his 2:1 block that appears to be consistent with Mobitz II and his complete heart block. These rhythms warrant a pacemaker. The question was whether or not this can be any manifestation of Lyme endocarditis given that he showed no acute signs or symptoms of Lyme nor had he shown any in the last several weeks and his Lyme titers were negative. I discussed with him that it seems extremely unlikely to have such a big manifestation of systemic Lyme such as Lyme carditis without any other manifestations and with a negative titer. For completeness, I discussed the case with infectious disease who agreed completely and did not feel a formal consultation was necessary. I discussed this further with the patient including a discussion of risks and benefits such as the utility of sending antibody titers and waiting on results with the risk being having him be in the hospital on pacer pads for probably days to a week for what would likely be a negative result as well as a trial of empiric antibiotics, knowing that it would take several days for improvement if it was Lyme carditis and knowing that exceedingly unlikely and therefore he would be exposed the risk being in the hospital for the better part of a week on broad antibiotics because of all of this. After further discussions, he agrees that a pacemaker is the most prudent course of action. Dr. Mckeon had seen him in the office this morning, so I am in the ER in conjunction with me and after discussions with infectious disease and readdressing the situation with the patient and his having a lengthy discussion of risks, benefits, alternatives and probable outcomes, he agreed that it appears most prudent to proceed with a pacemaker and given that there is availability to do it this afternoon, we all agreed that it was better just to get things taken care of quickly so after leaving the ER, he will be proceeding to the EP lab for pacer implantation. After that, postop management will be per Dr. Mckeon. 2. Transaminitis. This is new and fairly mild and almost certainly relates predominantly to more heavy alcohol intake last week than is his norm. Certainly, there may also be a little bit passive cardiac congestion from lower cardiac output with the complete heart block. 3. Type 1 diabetes. He appears overall to show pretty reasonable control for a type 1 with all of his A1c's in the last 4 years or so being in the mid to low 7s. Continue his insulin pump. 4. Mildly elevated TSH is just slightly out of the endocrinology standard goal range of 0.5-2.5. Continue outpatient management. 5. Deep venous thrombosis prophylaxis. Currently nothing pharmacologic because of the impending procedure. Postop based on how he is doing, but hopefully, simply ambulation will suffice. ALVARO
[2017-02-11 18:40] VITALS: BP 140/69; PULSE 64; TEMP 36.6; O2SAT 97
[2017-02-11 20:58] LABS: URINE APPEARANCE CLEAR (CLEAR); URINE BILIRUBIN NEG (NEG); URINE COLOR YELLOW; URINE NITRITE NEG (NEG); URINE SPECIFIC GRAVITY 1.013 (1.000-1.030); UROBILINOGEN NEG (NEG)
[2017-02-11] MEDS ORDERED: LATANOPROST 0.005% OP SOLN 2.5 ML BTL OPL SCH (21:00)
[2017-02-11 21:01] LABS: MANUAL MICROSCOPIC REQUIRED? NO; REVIEW REQ? NO
[2017-02-11 23:23] VITALS: BP 133/73; PULSE 65; TEMP 37.1; O2SAT 97
[2017-02-11] MEDS: CEFAZOLIN IV 1,000 MG in DEXTROSE 5% 50ML 50 ML IV SCH (23:28)
[2017-02-12 03:56] VITALS: BP 135/63; PULSE 63; TEMP 36.8; O2SAT 97
[2017-02-12] MEDS ORDERED: CEFAZOLIN SOD 1000MG/55 ML D5W IV SCH (06:00)
[2017-02-12] MEDS: CEFAZOLIN IV 1,000 MG in DEXTROSE 5% 50ML 50 ML IV SCH (06:28)
--- NOTE | 2017-02-12 07:02 | DIAGNOSTIC IMAGING REPORT ---
CHEST 2 VIEWS ROUTINE CLINICAL HISTORY: EXACT TIME ORDERED Evaluate for pneumothorax and lead placement COMPARISON STUDY: 02/11/2017 FINDINGS: Bipolar cardiac pacemaker with leads in good position. No evidence pneumothorax. Lungs remain clear. IMPRESSION: Interval placement of a bipolar cardiac pacer. Leads in good position. No evidence of pneumothorax. Electronically signed by: Francesco Camara M.D. 02/12/2017 7:00 AM Dictated Date/Time: 02/12/2017 7:00 AM
[2017-02-12 07:42] VITALS: BP 127/64; PULSE 63; TEMP 36.8; O2SAT 96
[2017-02-12 08:43] LABS: HEMATOCRIT 40.3 % (42-52); MEAN CELL VOLUME 96.2 fL (80-100); MEAN CORPUSCULAR HEMOGLOBIN 33.2 pg (25-34); MEAN CORPUSCULAR HGB CONC 34.5 g/dl (32-36); MEAN PLATELET VOLUME 11.4 fL (7.4-10.4); PLATELET COUNT 137 K/uL (130-400); RED BLOOD COUNT 4.19 M/uL (4.7-6.1); WHITE BLOOD COUNT 5.24 K/uL (4.8-10.8)
[2017-02-12 09:00] VITALS: Ht 177.8 cm; Wt 67.1 kg
[2017-02-12] MEDS ORDERED: VITAMIN B COMPLEX TAB PO SCH (09:00)
[2017-02-12] MEDS ORDERED: MULTIVITAMIN TAB PO SCH (09:00)
[2017-02-12] MEDS ORDERED: CHOLECALCIFEROL 1000 INTER.UNIT TAB PO SCH (09:00)
--- NOTE | 2017-02-12 09:10 | Cardiology Follow-Up ---
Subjective Date of Service: February 12, 2017. Pt evaluation today including: conversation w/ patient, physical exam, lab review, review of studies, review of inpatient medication list History of Present Illness Doing well post-ngoc maker yesterday, no significant incisional discomfort, feels better now with a higher heart rate. Social History Smoking Status: Never Smoker History of Alcohol Use: Yes (2 beer/day) Review of Systems Respiratory: No shortness of breath Cardiac: No chest pain Objective Vital Signs Past 12 Hours Date Time Temp Pulse Resp B/P Pulse Ox O2 Delivery O2 Flow Rate FiO2 02/12/17 07:42 36.8 63 18 127/64 96 Room Air 02/12/17 04:00 Room Air 02/12/17 03:56 36.8 63 18 135/63 97 Room Air 02/11/17 23:59 Room Air 02/11/17 23:23 37.1 65 18 133/73 97 Room Air Last Recorded Weight-Kilograms: 67.100 Intake & Output 8-Hour Column 02/11/17 02/12/17 02/12/17 16:00 00:00 08:00 Intake Total 550 ml 150 ml Output Total 600 ml 800 ml Balance -50 ml -650 ml 24-Hour Column 02/12/17 08:00 Intake Total 700 ml Output Total 1400 ml Balance -700 ml Physical Exam Constitutional: Level of Distress: NAD Lungs: Auscultation: breath sounds normal Cardiovascular: Heart Auscultation: RRR, no murmurs, no rubs Extremities: no edema Data Laboratory Results: Last 24 Hours Test 02/11/17 11:51 02/11/17 11:56 02/11/17 14:54 02/11/17 16:15 White Blood Count 6.01 K/uL Red Blood Count 4.52 M/uL Hemoglobin 14.7 g/dL Hematocrit 43.3 % Mean Corpuscular Volume 95.8 fL Mean Corpuscular Hemoglobin 32.5 pg Mean Corpuscular Hemoglobin Concent 33.9 g/dl Platelet Count 180 K/uL Mean Platelet Volume 11.5 fL Neutrophils (%) (Auto) 61.7 % Lymphocytes (%) (Auto) 28.3 % Monocytes (%) (Auto) 8.7 % Eosinophils (%) (Auto) 0.8 % Basophils (%) (Auto) 0.3 % Neutrophils # (Auto) 3.71 K/uL Lymphocytes # (Auto) 1.70 K/uL Monocytes # (Auto) 0.52 K/uL Eosinophils # (Auto) 0.05 K/uL Basophils # (Auto) 0.02 K/uL RDW Standard Deviation 47.6 fL RDW Coefficient of Variation 13.5 % Immature Granulocyte % (Auto) 0.2 % Immature Granulocyte # (Auto) 0.01 K/uL Prothrombin Time 10.8 SECONDS Prothromb Time International Ratio 1.0 Activated Partial Thromboplast Time 26.9 SECONDS Partial Thromboplastin Ratio 1.0 Sodium Level 140 mmol/L Potassium Level 4.0 mmol/L Chloride Level 106 mmol/L Carbon Dioxide Level 28 mmol/L Anion Gap 6.0 mmol/L 21.0 mmol/L Blood Urea Nitrogen 19 mg/dl Creatinine 0.89 mg/dl Est Creatinine Clear Calc Drug Dose 76.1 ml/min Estimated GFR () 101.8 Estimated GFR (Non- 87.9 BUN/Creatinine Ratio 21.7 Random Glucose 184 mg/dl Calcium Level 9.3 mg/dl Magnesium Level 2.0 mg/dl Total Bilirubin 0.7 mg/dl Aspartate Amino Transf (AST/SGOT) 110 U/L Alanine Aminotransferase (ALT/SGPT) 152 U/L Alkaline Phosphatase 193 U/L Total Creatine Kinase 105 U/L Creatine Kinase MB 0.7 ng/ml Creatine Kinase MB Ratio 0.7 Troponin I < 0.015 ng/ml Total Protein 7.2 gm/dl Albumin 4.0 gm/dl Globulin 3.2 gm/dl Albumin/Globulin Ratio 1.3 Thyroid Stimulating Hormone (TSH) 3.230 uIu/ml Free Thyroxine 0.99 ng/dl Lyme Disease IgG Antibody NEG Lyme Disease IgM Antibody NEG Bedside Hemoglobin 15.0 g/dl Bedside Hematocrit 44 % Bedside Sodium 140 mEq/L Bedside Potassium 4.1 mEq/L Bedside Chloride 100 mEq/L Bedside Total CO2 24 mEq/l Bedside Blood Urea Nitrogen 20 mg/dl Bedside Creatinine 0.7 mg/dl Bedside Glucose (other) 191 mg/dl Bedside Ionized Calcium (Ashley) 1.24 mmol/l Bedside Glucose 94 mg/dl 119 mg/dl Test 02/11/17 19:40 02/11/17 20:30 02/12/17 07:21 02/12/17 08:30 Bedside Glucose 218 mg/dl 125 mg/dl Urine Color YELLOW Urine Appearance CLEAR Urine pH 8.0 Urine Specific [place] 1.013 Urine Protein NEG Urine Glucose (UA) 1+ Urine Ketones NEG Urine Occult Blood NEG Urine Nitrite NEG Urine Bilirubin NEG Urine Urobilinogen NEG Urine Leukocyte Esterase NEG White Blood Count 5.24 K/uL Red Blood Count 4.19 M/uL Hemoglobin 13.9 g/dL Hematocrit 40.3 % Mean Corpuscular Volume 96.2 fL Mean Corpuscular Hemoglobin 33.2 pg Mean Corpuscular Hemoglobin Concent 34.5 g/dl RDW Standard Deviation 47.0 fL RDW Coefficient of Variation 13.5 % Platelet Count 137 K/uL Mean Platelet Volume 11.4 fL Imaging: Chest x-ray shows good lead position, no pneumothorax EKG: Sinus rhythm with ventricular pacing appropriately Telemetry reviewed: Sinus rhythm with ventricular pacing post-pacemaker, no arrhythmia Pacemaker evaluation: Excellent pacing and sensing characteristics. Assessment and Plan #1. Complete heart block: He presented in complete heart block with a heart rate in the mid-30s and a wide complex rhythm, on telemetry monitoring he has had periods of 2-1 AV conduction with a very similar heart rate. His electrocardiogram from 2009 shows left anterior fascicular block with a QRS duration of 118 ms. 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 It does not seem likely that this is Lyme disease despite his history of a tick bite, he was treated with several doses of doxycycline after the tick bike, did not have a characteristic rash and is Lyme titer is currently negative. I thought the best option was to proceed with pacemaker implantation, which was done yesterday without difficulty. #2. Postop day #1: Doing well post-pacemaker. The site looks good, the pacer is working well. Stable for discharge today after his last dose of antibiotic. Thank you for allowing me to participate in his care.
[2017-02-12 09:23] LABS: BUN/CREATININE RATIO 17.3 (10-20); CREATININE 0.75 mg/dl (0.60-1.40)
--- NOTE | 2017-02-12 09:25 | Discharge Instructions ---
Discharge Instructions Date of Service February 12, 2017. Admission Reason for Admission: Complete Heart Block Discharge Discharge Diagnosis / Problem: Complete Heart Block with Pacer Discharge Goals Goal(s): Decrease discomfort, Improve function, Increase independence Activity Recommendations Activity Limitations: as noted below (See recommendations below from Dr. Aguila) Shower/Bathe: keep incision dry Driving or Machine Use: resume 3 days after discharge . Instructions / Follow-Up Instructions / Follow-Up Complete Heart Block with Pacemaker Placed: - Please see instructions from Dr. Aguila below in regards to activity and follow-up appointment - You may use Tylenol or Ibuprofen for pain relief. It is important to follow dosing allowance on bottles. Home Medications: Please resume all home medications as previously prescribed. Current Hospital Diet Patient's current hospital diet: Diabetes Type 1 Diet Discharge Diet Recommended Diet: Diabetes Type 1 Diet Pending Studies Studies pending at discharge: no Laboratory Results Hemoglobin A1c Test 12/18/16 18:32 Range/Units Estimated Average Glucose 174 mg/dl Hemoglobin A1c 7.7 H 4.5-5.6 % Lipid Panel Test 12/18/16 18:32 Range/Units Triglycerides Level 97 0-150 mg/dl Cholesterol Level 140 0-200 mg/dl HDL Cholesterol 85 mg/dl Cholesterol/HDL Ratio 1.6 LDL Cholesterol, Calculated 36 mg/dl Medical Emergencies . Who to Call and When: Medical Emergencies: If at any time you feel your situation is an emergency, please call 911 immediately. . Non-Emergent Contact Non-Emergency issues call your: Primary Care Provider Call Non-Emergent contact if: you have a fever, your pain is concerning you, you have any medication questions . . "Provider Documentation" section prepared by Leah Lamas. . Club Concierge Recommendations Club Concierge Recommendations: ACTIVITY RECOMMENDATIONS: * Do not raise affected arm over head for 2 weeks. SPECIAL CARE INSTRUCTIONS: * If bleeding occurs, apply direct pressure to area for 5 minutes. * Call your doctor if you have severe pain, fever, drainage or bleeding at site. * Keep dressing on and dry for 48 hours then remove. * Keep any scheduled doctor's appointment. * Implant Card - hand held device with website information given. SKIN IRRITATION: * You may experience some redness and/or swelling in the area where radiation was administered. If any skin irritation occurs, please contact your family physician. FOLLOW UP VISIT: Dr. Mckeon Friday02/14/2017 10:00 AM VTE Core Measure Inpt VTE Proph given/why not?: Rosendo Tatum, DINORAH's
[2017-02-12 11:00] VITALS: BP 138/68; PULSE 68; TEMP 36.8; O2SAT 96
[2017-02-12 11:18] VITALS: BP 132/70; PULSE 70; TEMP 36.8; O2SAT 97
--- NOTE | 2017-02-12 13:30 | Discharge Summary ---
Discharge Summary Date of Service February 12, 2017. Discharge Summary Admission Date: February 11, 2017 at 12:20 Discharge Date: February 12, 2017 Discharge Disposition: Home Principal Diagnosis: Complete Heart Block S/P Pacemaker Problems/Secondary Diagnoses: Medical Problems: (1) Celiac disease (2) Complete heart block (3) Diabetes type I (4) Glaucoma Surgical Problems: (1) Pacemaker Procedures: 1. SINGLE VIEW CHEST CLINICAL HISTORY: Dyspnea. FINDINGS: An AP, portable, upright chest radiograph is obtained. No prior studies are available for comparison at the time of dictation. The examination is degraded by portable technique and patient rotation. Cardiac pads are in place. The cardiomediastinal silhouette is unremarkable. The lungs and pleural spaces are clear. No pneumothorax is seen. The bony thorax is grossly intact. IMPRESSION: No acute cardiopulmonary abnormality. 2. CHEST 2 VIEWS ROUTINE CLINICAL HISTORY: EXACT TIME ORDERED Evaluate for pneumothorax and lead placement COMPARISON STUDY: 02/11/2017 FINDINGS: Bipolar cardiac pacemaker with leads in good position. No evidence pneumothorax. Lungs remain clear. IMPRESSION: Interval placement of a bipolar cardiac pacer. Leads in good position. No evidence of pneumothorax. Consultations: 1. Cardiology - Dr. Aguila Medication Reconciliation Continued Medications: B-Complex Vitamins (Vitamin B Complex) 1 Tab Tab 1 TAB PO QAM Calcium W/ Vitamin D (Calcium/Vitamin D) 1 Tab Tab 1 TAB PO 2XWK 1 tab equals 100mg calcium and 125 units of vitamin D Cholecalciferol (Vitamin D) 1,000 Inter.unit Tab 4000 UNITS PO QAM, TAB Doxycycline Hyclate (Vibramycin) 100 Mg Cap 1 CAP PO UD for 7 Days, CAP patient states he takes 1 capsule after tick bite and repeats 1 capsule x 1 only in 12 hrs. Epinephrine (Epipen) 0.3 Mg/0.3 Ml Inj 0.3 MG IM UD PRN for bee sting, BOX Hyoscyamine Sulfate (Levsin) 0.125 Mg Tab 0.125 MG PO TID PRN for bloating, GI discomfort, TAB patient states he rarely uses Insulin Aspart (novoLOG INSULIN PUMP ) 1 Ea Inj 1 EA N/A UD, EA patient state basal rate varies between 0.4-0.8units/hr, but mostly runs at 0.6units; total daily basal 14units/day per S Barrett's note; correction factor 50mg/dl/unit; carb ratio: 1 unit per 12gm CHO; total daily doses ~26-35 units/day Latanoprost (Xalatan 0.005% Oph Susan) 0.005 % Susan 1 DROPS OPL HS, #7.5 ML 3 Refills Multivitamin (Multivitamin) Tab 1 TAB PO QAM, TAB Discharge Exam REVIEW OF SYSTEMS: General/Constitutional: Denies fever/chills, fatigue, weakness ENT: Denies visual changes, nasal drainage, hearing loss, sore throat, trouble swallowing Cardiovascular: +musculoskeletal chest pain (well-controlled at site of pacer); Denies palpitations, edema Respiratory: Denies cough, sputum, SOB, wheezing, orthopnea GI: Denies nausea, vomiting, abdominal pain, constipation, diarrhea, melena/ hematochezia : Denies dysuria, frequency, hematuria Musculoskeletal: Denies joint/muscle aches, weakness, swelling Neurologic: Denies dizziness/lightheadedness, numbness/tingling, weakness Psychiatric: Deferred Endocrine: Deferred Hematologic/Lymphatic: Denies bleeding/clotting abnormalities Skin: Denies rash, itch, new skin changes, easy bruising Allergy/Immunologic: Deferred PHYSICAL EXAM:: General Appearance: WDWN in NAD who is A&O x 3 HEENT: Head is normocephalic/atraumatic; EOMI; PERRLA; Hearing grossly intact; Mucous membranes moist; Pharynx negative for exudate/lesions Neck: Supple; Trachea midline; Neg JVD; Neg lymphadenopathy Heart: RRR with no M/G/R Lungs: CTA in all lung jones bilaterally; Respirations unlabored; Neg accessory muscle use Abdomen: Soft, non-tender, non-distended; Positive BS x 4 quadrants; Neg organomegaly Extremities: Capillary refill < 2 seconds; Neg cyanosis or edema Neurological: Speech clear; Gross motor/sensory function intact; Neg focal neurologic deficits Psychiatric: Appropriate mood/affect Skin: Normal Color; Warm/Dry; Neg rashes; Surgical site without drainage, erythema, warmth with dressing applied that is currently clean/dry/intact Hospital Course ADMISSION: The patient is a very pleasant 66-year-old male who presented to the ER after having seen his PCP this morning. He was found to be lightheaded and dizzy with standing. No chest pain, no shortness of breath. He was short of breath yesterday when mowing the grass. He saw his PCP this morning and was found to have a low heart rate. EKG appeared to be a complete heart block. He was immediately seen by cardiology who felt it is prudent to get emergently set up for a pacemaker; however, there was a question of whether or not this could be a manifestation of Lyme and help sort things out more expeditiously. He was sent to the ER for further evaluation. He notes in regards to the Lyme that he has "a tick magnet" and gets tick bites all the time. He tries to be somewhat vigilant but does not really have a routine tick checks. He however does not have any recent target rash, no fevers, no headache, and no new joint pain or swelling; and actually had a Lyme titer drawn this morning by his PCP that was negative. HOSPITAL COURSE: Mr. Mcdonough was admitted for complete heart block and underwent dual chamber pacemaker placement on 02/11/17. Upon admission, EKG findings significant for 2:1 block consistent with Mobitz II intermittently as well as complete heart block. Question of Lyme endocarditis however he did not present with acute signs/symptoms nor in the last several weeks. Discussion between medicine, cardiology, and infectious disease that do not feel this is Lyme related without manifestations of systemic Lyme. Lyme IgG and IgM negative. Incidentally labs significant for transaminitis which is new and possibly related to recent heavy alcohol intake above his norm while on vacation and possible cardiac congestion from a decreased cardiac output in the setting of complete heart block. All home medications resumed as previously prescribed. Patient is hemodynamically stable and optimal for discharge home with follow-up with Dr. Aguila on Friday02/14/17. Total Time Spent: Greater than 30 minutes This includes examination of the patient, discharge planning, medication reconciliation, and communication with other providers. Discharge Instructions Please refer to the electronic Patient Visit Report (Discharge Instructions) for additional information. Additional Copies To Edison Godinez M.D.
--- NOTE | 2017-03-06 17:02 | OPERATIVE REPORT ---
DATE OF OPERATION: 02/11/2017 PREOPERATIVE DIAGNOSIS: Complete heart block. POSTOPERATIVE DIAGNOSIS: Same. PROCEDURE: Dual-chamber pacemaker implantation. SURGEON: Issac Mckeon MD ANESTHESIA: Local with sedation. HISTORY: This is a 66-year-old male who had several days of shortness of breath and dizziness, presented to the office where he was noted to be in complete heart block. There appeared to be no reversible cause, although Lyme disease was entertained, but this was felt not to be likely. He therefore is brought to the laboratory for pacemaker implantation. DESCRIPTION OF PROCEDURE: After obtaining informed consent for the procedure, he was brought to the laboratory on the afternoon of 02/11/2017 being n.p.o. after breakfast. He was identified in the laboratory, prepped and draped in standard sterile manner for a left-sided pacemaker implantation. The left prepectoral region was anesthetized with 1% lidocaine local anesthetic and left subclavian venipuncture was performed by percutaneous technique and a guidewire placed through the left subclavian vein into the superior vena cava. The area was further infiltrated with 1% lidocaine local anesthetic and a 5 cm incision was made parallel to the left clavicle and 2 cm below it and carried down to the anterior pectoralis fascia. A pacemaker pocket was formed by blunt dissection anterior to the pectoralis fascia and a bacitracin-soaked sponge (50,000 units in 50 mL normal saline solution) was placed in the pocket. An 8-Macedonian Medtronic lead introducer was placed over the guidewire into the left subclavian vein, the dilator and guidewire were removed and a bipolar active fixation steroid-tipped ventricular lead was advanced through the introducer into the superior vena cava. The guidewire was placed through the introducer and introducer stripped away from lead and guidewire. Another 8-Macedonian Medtronic lead introducer was placed over the guidewire into the left subclavian vein, the dilator and guidewire were removed and a bipolar active fixation steroid-tipped atrial lead was advanced through the introducer into the superior vena cava. The guidewire was placed through the introducer and introducer stripped away from lead and guidewire. Using a curved stylette, the ventricular lead was advanced through the right ventricular outflow tract into the pulmonary artery and then using a straight stylette was positioned in the right ventricular apex. Once in position, the ventricular pacing threshold was evaluated in bipolar configuration at a pulse width of 0.5 milliseconds. Diaphragmatic pacing was also tested. Thresholds were good and there was no diaphragmatic pacing. The atrial lead was then positioned in the region of the atrial appendage and the screw extended fixing the lead in position. The atrial pacing threshold was evaluated in bipolar configuration at a pulse width of 0.5 milliseconds. Atrial pacing threshold was good and there was no diaphragmatic pacing with a 10 volt bipolar output. Once leads were in position, they were attached to the anterior pectoralis fascia using 2 sutures of 2-0 silk around each lead collar. The bacitracin-soaked sponge was removed from the pocket, the guidewire was removed from left subclavian vein and hemostasis was obtained. The pacemaker (Medtronic Advisa DR) was attached to the leads and found to be functioning normally. It was placed in the pocket with the leads coiled beneath it and the incision was closed with a running double subcutaneous closure of 3-0 Vicryl followed by running subcuticular skin closure of 4-0 Vicryl. Bacitracin ointment was placed on incision and a pressure dressing applied. The patient tolerated the procedure well, there were no complications and estimated blood loss was 30 mL. He was transferred back to the telemetry unit for monitoring. The atrial lead is a Medtronic model 5076, serial #[id number] and is a bipolar active fixation steroid-tipped MRI compatible lead. The ventricular lead is a Medtronic model 5076, serial #[id number] and a bipolar active fixation steroid-tipped MRI compatible lead. The pacemaker is a Medtronic Advisa DR MRI model A2DR01, serial #[id number]. This is also an MRI compatible device and the system is therefore MRI compatible. The pacemaker was reprogrammed in the laboratory to final settings. ALVARO
== END 2017-02-12 11:45 | disposition home or self-care (01) | DRG 244 ==
LOC: ENRESERVTM → ENRESERVDT → C.EDB 11:34 → C.2E 12:20
PROVIDERS: ADMIT Family Medicine; ATTEND Family Medicine
PROC: 02H63JZ Insertion of Pacemaker Lead into Right Atrium, Percutaneous Approach (ICD-10-PCS; principal; 2017-02-11 14:00)
PROC: 02HK3JZ Insertion of Pacemaker Lead into Right Ventricle, Percutaneous Approach (ICD-10-PCS; principal; 2017-02-11 14:00)
PROC: 0JH606Z Insertion of Pacemaker, Dual Chamber into Chest Subcutaneous Tissue and Fascia, Open Approach (ICD-10-PCS; principal; 2017-02-11 14:00)
DX: I44.2 Atrioventricular block, complete (principal); I45.10 Unspecified right bundle-branch block; R74.0 Nonspecific elevation of levels of transaminase and lactic acid dehydrogenase [LDH]; T51.0X4A Toxic effect of ethanol, undetermined, initial encounter; R94.6 Abnormal results of thyroid function studies; E10.9 Type 1 diabetes mellitus without complications; H40.9 Unspecified glaucoma; K90.0 Celiac disease; Z79.4 Long term (current) use of insulin

== ENCOUNTER → 2017-02-11 | Outpatient (CLI) | payer OTHER ==
[2017-02-11 10:28] LABS: BASO % 0.3 %; BASO ABS # 0.02 K/uL (0-0.2); EOS % 1.2 %; HEMATOCRIT 42.1 % (42-52); IG% 0.2 %; LYMPH ABS # 1.45 K/uL (1.2-3.4); MEAN CORPUSCULAR HEMOGLOBIN 33.9 pg (25-34); MEAN PLATELET VOLUME 12.1 fL (7.4-10.4); MONO % 11.3 %; PLATELET COUNT 168 K/uL (130-400); RED BLOOD COUNT 4.34 M/uL (4.7-6.1); WHITE BLOOD COUNT 6.03 K/uL (4.8-10.8)
[2017-02-11 10:33] LABS: COMPLETE YES; MEAN CORPUSCULAR HGB CONC 34.9 g/dl (32-36)
[2017-02-11 10:39] LABS: PROTHROMBIN TIME (PATIENT) 11.1 SECONDS (9.0-12.0)
[2017-02-11 10:57] LABS: ALT/SGPT 143 U/L (12-78); BLOOD UREA NITROGEN 19 mg/dl (7-18); BUN/CREATININE RATIO 22.7 (10-20); CALCIUM 9.5 mg/dl (8.5-10.1); CARBON DIOXIDE 27 mmol/L (21-32); CHLORIDE 103 mmol/L (98-107); CREATININE 0.82 mg/dl (0.60-1.40); GLUCOSE 252 mg/dl (70-99); POTASSIUM 4.6 mmol/L (3.5-5.1); SODIUM 139 mmol/L (136-145)
[2017-02-11 11:15] LABS: ALB/GLOB RATIO 1.3 (0.9-2); ALKALINE PHOSPHATASE 187 U/L (45-117); AST/SGOT 117 U/L (15-37)
[2017-02-11 11:19] LABS: LYME DISEASE AB IGG NEG (NEG); LYME DISEASE AB IGM NEG (NEG)
== END | disposition home or self-care (01) ==
LOC: C.LAB1850 09:50
PROVIDERS: ATTEND Internal Medicine Pulmonary Disease
DX: I44.2 Atrioventricular block, complete (principal)

== ENCOUNTER → 2017-03-19 | Outpatient (CLI) | payer OTHER ==
[~2017-03-19] MED LIST changes: -CALC500T83 PO; +CALC600T24 PO; +DOXY100C2 PO; +EPP3/2 IM; +HYOS1TAB PO; +LATA0.5S OPL
[2017-03-19 14:04] LABS: ESTIMATED AVERAGE GLUCOSE 166 mg/dl; HA1C FLAG Normal (Normal)
== END | disposition home or self-care (01) ==
LOC: C.LAB1850 12:31
PROVIDERS: ATTEND Nurse Practitioner Adult Health
DX: E10.9 Type 1 diabetes mellitus without complications (principal)

== ENCOUNTER → 2017-03-26 | Outpatient (CLI) | payer OTHER ==
[2017-03-26 16:53] LABS: ALT/SGPT 27 U/L (12-78); AST/SGOT 20 U/L (15-37); BLOOD UREA NITROGEN 13 mg/dl (7-18); BUN/CREATININE RATIO 18.4 (10-20); CARBON DIOXIDE 24 mmol/L (21-32); CHLORIDE 107 mmol/L (98-107); CREATININE 0.72 mg/dl (0.60-1.40); GLUCOSE 130 mg/dl (70-99); POTASSIUM 4.4 mmol/L (3.5-5.1); SODIUM 140 mmol/L (136-145)
[2017-03-26 16:56] LABS: ALB/GLOB RATIO 1.1 (0.9-2); ALKALINE PHOSPHATASE 154 U/L (45-117)
== END ==
LOC: C.LAB1850 13:51
PROVIDERS: ATTEND Physician Assistant Medical
DX: R79.9 Abnormal finding of blood chemistry, unspecified (principal)

== ENCOUNTER → 2017-04-22 | Outpatient (CLI) | payer OTHER | END | disposition home or self-care (01) | LOC: C.PATHSPEC 16:49 | PROVIDERS: ATTEND Dermatology | DX: S70.362A Insect bite (nonvenomous), left thigh, initial encounter (principal); W57.XXXA Bitten or stung by nonvenomous insect and other nonvenomous arthropods, initial encounter ==

== ENCOUNTER → 2017-06-17 | Outpatient (CLI) | payer OTHER ==
[2017-06-17 12:29] LABS: ESTIMATED AVERAGE GLUCOSE 171 mg/dl; HA1C FLAG Normal (Normal)
== END | disposition home or self-care (01) ==
LOC: C.LAB1850 09:57
PROVIDERS: ATTEND Nurse Practitioner Adult Health
DX: E10.9 Type 1 diabetes mellitus without complications (principal)

== ENCOUNTER → 2017-09-12 | Outpatient (CLI) | payer OTHER ==
[2017-09-12 09:48] LABS: ESTIMATED AVERAGE GLUCOSE 166 mg/dl; HA1C FLAG Normal (Normal)
== END | disposition home or self-care (01) ==
LOC: C.LAB1850 08:55
PROVIDERS: ATTEND Nurse Practitioner Adult Health
DX: E10.9 Type 1 diabetes mellitus without complications (principal)

== ENCOUNTER → 2017-12-11 | Outpatient (CLI) | payer OTHER ==
[2017-12-11 13:38] LABS: CREATININE RANDOM URINE 64.7 mg/dl
[2017-12-11 13:43] LABS: ALBUMIN 4.1 gm/dl (3.4-5.0); ALT/SGPT 31 U/L (12-78); AST/SGOT 21 U/L (15-37); BLOOD UREA NITROGEN 19 mg/dl (7-18); CALCIUM 9.1 mg/dl (8.5-10.1); CARBON DIOXIDE 26 mmol/L (21-32); GLUCOSE 155 mg/dl (70-99); POTASSIUM 3.9 mmol/L (3.5-5.1); SODIUM 137 mmol/L (136-145)
[2017-12-11 13:49] LABS: HEMOGLOBIN A1C 7.3 % (4.5-5.6)
[2017-12-11 13:54] LABS: ALKALINE PHOSPHATASE 198 U/L (45-117); CHOLESTEROL 145 mg/dl (0-200); LDL CHOLESTEROL CALCULATED 41 mg/dl; TOTAL PROTEIN 7.4 gm/dl (6.4-8.2)
== END | disposition home or self-care (01) ==
LOC: C.LAB1850 11:49
PROVIDERS: ATTEND Nurse Practitioner Adult Health
DX: E10.9 Type 1 diabetes mellitus without complications (principal); I10 Essential (primary) hypertension; R79.9 Abnormal finding of blood chemistry, unspecified; K90.0 Celiac disease; N40.0 Benign prostatic hyperplasia without lower urinary tract symptoms

== ENCOUNTER 2021-02-06 05:58 | Inpatient (IN) ==
--- NOTE | 2021-01-26 11:55 | PAT Medication Instructions ---
Medication Instructions Date of Service January 26, 2021 Home Medications Medication Instructions Recorded Dexcom G6 Sensor #3 ea NS 06/26/20 insulin aspart U-100 100 unit/mL subcutaneous solution 40 unit CONTINUOUS SUBCUTANEOUS INFUSION DAILY latanoprost 0.005 % eye drops 1 drp OP HS zinc 50 mg tablet 50 mg PO HS cholecalciferol (vitamin D3) 3,000 units PO HS epinephrine 0.3 mg SUBCUT UD PRN insulin aspart U-100 [Novolog Flexpen U-100 Insulin] 5 unit SUBCUT UD PRN levocetirizine 5 mg PO QAM Continue as directed epinephrine 0.3 mg SUBCUT UD PRN (if needed) DO NOT take the morning of surgery insulin aspart U-100 [Novolog Flexpen U-100 Insulin] 5 unit SUBCUT UD PRN levocetirizine 5 mg PO QAM Take evening before surgery insulin aspart U-100 100 unit/mL subcutaneous solution 40 unit CONTINUOUS SUBCUTANEOUS INFUSION DAILY latanoprost 0.005 % eye drops 1 drp OP HS zinc 50 mg tablet 50 mg PO HS cholecalciferol (vitamin D3) 3,000 units PO HS insulin aspart U-100 [Novolog Flexpen U-100 Insulin] 5 unit SUBCUT UD PRN (if needed) Insulin Dependent Diabetic Patients insulin aspart U-100 100 unit/mL subcutaneous solution 40 unit CONTINUOUS SUBCUTANEOUS INFUSION DAILY (continue insulin pump at basal rate dose- do NOT bolus AM of surgery) OTHERWISE NOTHING TO EAT OR DRINK AFTER MIDNIGHT: Other Notes If you have any questions please call us at [phone] or [phone] or [phone] or [phone]
--- NOTE | 2021-01-30 09:13 | Anesthesiology Consultation ---
Date of Service January 30, 2021 Assessment & Plan (1) Encounter for pre-operative examination: Chart Review Chart Review: Acceptable Risk for Surgery (pending preop Covid testing results ) and Patient seen in Pre Admission Testing - Check BSG AM DOS Last pacemaker check 07/24/20- no issues noted. Discussed with Dr. Sandra- patient can proceed as scheduled without repeat pacemaker check prior to surgery. Pt has insulin pump in place- does have glucose sensor on lower abdomen as well. Can take glucose sensor off if in the way but insulin pump will beep. Pt sensitive to medications Per PAT appt on 01/30/21, pt resides in [facility]. [facility] for Covid vaccine. Wears mask in public. No known Covid positive contacts or Covid related symptoms. No known Covid infections in the past 90 days. Has received both Covid vaccines. Preop Covid testing done at PAT appt on 01/30/21 at [facility]= results pending. Educated on importance of self quarantining, social distancing and wearing mask in public both for the patient and household contacts. Last seen by EP 07/24/21= seen for follow up on [facility]- pacemaker functioning well. Nearly 100% ventricular pacing. Very active individual. No pacemaker adjustments made. Will follow up with patient remotely with in office reevaluaton annually. Teaching & Discussion Pre-Anesthesia Teaching/Discussion Notes: Instructed NPO after midnight before surgery,except medications with 15 cc of water. Medication instructions provided according to the [facility] guidelines. History Surgery Operation Date: 02/06/21 07:30 Proposed Procedures p Robotic Laparoscopic Assisted Radical Retropubic Prostatectomy, Possible Open, Possible Pelvic Lymph Node Dissection, Possible Subprapubic Tube Placement - John Dunn MD Height/Weight Height: 5 ft 9.5 in Weight: 66 kg Allergies Allergy/AdvReac Type Severity Reaction Status Date / Time bee venom protein (honey bee) Allergy Severe anaphylaxis Verified 01/19/21 15:53 gluten Allergy Severe celiac's Verified 01/19/21 16:01 disease oats Allergy Severe per Verified 01/19/21 16:02 clearance representative is supposed to stay away from oats wheat Allergy Severe celiac's Verified 01/19/21 16:01 disease grass pollen Allergy Mild runny Verified 01/19/21 15:53 nose, itchy eyes latex Allergy Mild BAD TASTE Verified 01/19/21 15:53 IN MOUTH Medications Home Medications Medication Instructions Recorded Confirmed Last Taken blood sugar diagnostic ea 09/14/19 12/26/20 Unknown Dexcom G6 Sensor #3 ea NS 06/26/20 12/26/20 Unknown insulin aspart U-100 100 unit/mL 40 unit CONTINUOUS SUBCUTANEOUS 12/19/20 01/19/21 Unknown subcutaneous solution INFUSION DAILY ml latanoprost 0.005 % eye drops 1 drp OP HS ml 12/26/20 01/19/21 Unknown zinc 50 mg tablet 50 mg PO HS 12/26/20 01/19/21 Unknown cholecalciferol (vitamin D3) 3,000 units PO HS 01/19/21 01/19/21 Unknown epinephrine 0.3 mg SUBCUT UD PRN 01/19/21 01/19/21 Unknown insulin aspart U-100 [Novolog 5 unit SUBCUT UD PRN 01/19/21 01/19/21 Unknown Flexpen U-100 Insulin] levocetirizine 5 mg PO QAM 01/19/21 01/19/21 Unknown Past Medical History Medical History Allergic rhinitis Cardiac pacemaker (02/11/17) Indication - complete heart block--Medtronic July 2020 Celiac disease Complete heart block Status post implant of dual-chamber Medtronic pacemaker 02/11/2017--follows with Dr. De La Cruz Disc degeneration, lumbar Elevated alkaline phosphatase level Glaucoma Hearing loss History of kidney stones History of prostate cancer (~11/27/20) Diagnosed 11/27/[address] Lumbar canal stenosis Type 1 diabetes mellitus with long-term current use of insulin Exercise / Class Metabolic Activity II 4-5 Yardwork/Stairs/Walk up hill (ONE FLIGHT OF STAIRS - NO CHEST PAIN OR SOB ) Past Family History Family History Grandfather (Paternal) , Passed in mid 80's of esophageal cancer Stomach cancer, Onset Age: 40 had surgery and did well Father , Passed age 92 of bladder cancer Prostate cancer, Onset Age: 75 had external with seed implant Mother , Passed age 95 of dementia complications No problems noted. Brother No problems noted. Brother No problems noted. Brother No problems noted. Sister No problems noted. Uncle Family history of diabetes mellitus Family/Other Family history of diabetes mellitus nephew Grandfather (Paternal) Family history of esophageal cancer Other Has no children No family history of adverse response to anesthesia Past Surgical History Surgical History History of arthroscopy of left knee History of colonoscopy (~03/2016) with polypectomy History of esophagogastroduodenoscopy (EGD) History of permanent cardiac pacemaker placement (02/11/17) meditronic History of prostate biopsy (11/27/20) Lesley 4+4, 3+4, 3+3 History of wisdom tooth extraction Past Anesthesia History No Hx of Anesthesia Complications and No Family Hx of Anesthesia Complications History of PONV No Hx of PONV and No Hx of Motion Sickness Social History Smoking Status: Never smoker Do You Dip or Chew Tobacco: No Hx Alcohol Use: Yes Alcohol type: beer and wine alcohol intake frequency: 0-2 drinks per day Alcohol Intake Frequency Comment: gluten free beer between 2-3 a day Hx Substance Use: No substance use type: does not use Review of Systems Occ reflux- usually diet dependent - no meds needed Patient denies chest pain, shortness of breath, dyspnea on exertion, cough, wheezing, palpitations. No hx of seizures, stroke, MS, apnea/snoring. No hx of blood clots or blood transfusions Physical Exam Vital Signs VITALS BP 130/67 P 71 TEMP 97.6 SP02 97% 16RESP Constitutional no acute distress ENMT Mouth: no TMJ clicking Thyromental Distance: > or= 3.5 Finger Breadths (4.0) Mallampati Class: III Crowns to molars Neck + limited neck extension (mild ) and + facial hair (advised to trim malagon ) Respiratory normal respiratory effort; no respiratory distress Auscultation: lungs clear to auscultation bilaterally; no wheezes Cardiovascular Rate/Rhythm: regular rate and regular rhythm Heart Sounds: no murmur Vessels: no carotid bruit Musculoskeletal Spine: no pain with cervical ROM Extremities: extremities normal to inspection Psychiatric Orientation: alert Testing Laboratory Results 01/30/21 09:54 01/30/21 09:54 Urine Color Yellow 01/30/21 09:54 Urine Appearance Clear (Clear) 01/30/21 09:54 Urine pH 7.0 (4.5-7.5) 01/30/21 09:54 Ur Specific [place] 1.014 (1.000-1.030) 01/30/21 09:54 Urine Protein Negative (Negative) 01/30/21 09:54 Urine Glucose (UA) 2+ (Negative) H 01/30/21 09:54 Urine Ketones Negative (Negative) 01/30/21 09:54 Urine Nitrite Negative (Negative) 01/30/21 09:54 Ur Leukocyte Esterase Negative (Negative) 01/30/21 09:54 Blood Type B Negative 01/30/21 10:10 Antibody Screen NEGATIVE 01/30/21 10:10 12/14/20= HGB A1C: 7.4 Electrocardiogram Date: 01/30/21 Atrial sensed ventricular paced rhythm with occ PVCs at 70bpm. Chest X-Ray Date: 01/30/21 Findings: + NAD There is a left subclavian dual-chamber central venous pacemaker present. Other Testing Pacer check 07/24/20= Medtronic pacemaker. Implanted 02/11/17. Atrial paced 19.6%. RV paced 99.4%. Mode: DDDR. No AF/AT; no VT.
--- NOTE | 2021-01-30 10:34 | XRay Report ---
XR chest Pre-admission PA/Lat CLINICAL HISTORY: Preoperative chest COMPARISON STUDY: 02/11/2017 FINDINGS: The heart is normal in size. There is a left subclavian dual-chamber central venous pacemak er present. There is no failure. There is no focal pulmonary consolidation. There are no pleural effu sions.[ IMPRESSION: No active disease in the chest. ACT 112: Negative or not required by law. Electronically signed by: Pankaj Flores M.D. 01/30/2021 10:32 AM
[2021-01-30 10:54] LABS: Basophils # (auto) 0.01 K/uL (0-0.2); Basophils % (auto) 0.2 %; Eosinophils # (auto) 0.06 K/uL (0-0.5); Eosinophils % (auto) 1.4 %; Hematocrit (blood only) 42.2 % (42-52); Hemoglobin 14.2 g/dL (14.0-18.0); Immature Granulocytes # (auto) 0.01 K/uL (0.00-0.02); Immature Granulocytes % (auto) 0.2 %; Lymphocytes # (auto) 1.18 K/uL (1.2-3.4); Lymphocytes % (auto) 26.6 %; Mean Corpuscular Hemoglobin 32.5 pg (25-34); Mean Corpuscular Hgb Conc 33.6 g/dL (32-36); Mean Corpuscular Volume 96.6 fL (80-100); Mean Platelet Volume 11.3 fL (7.4-10.4); Neutrophils # (auto) 2.78 K/uL (1.4-6.5); Neutrophils % (auto) 62.6 %; Platelet Count 168 K/uL (130-400); RDW Coefficient of Variation 13.4 % (11.5-14.5); RDW Standard Deviation 47.9 fL (36.4-46.3); Red Blood Count 4.37 M/uL (4.7-6.1); White Blood Count 4.44 K/uL (4.8-10.8)
[2021-01-30 10:57] LABS: Appearance Urine Clear (Clear); Bilirubin Urine Negative (Negative); Blood Urine Negative (Negative); Color Urine Yellow; Glucose Urine UA 2+ (Negative); Ketones Urine Negative (Negative); Leukocyte Esterase Urine Negative (Negative); Nitrite Urine Negative (Negative); Protein Urine Negative (Negative); Specific Gravity Urine 1.014 (1.000-1.030); Urobilinogen Urine Negative (Negative)
[2021-01-30 11:02] LABS: BUN Creatinine Ratio 18.9 (10-20); Calcium 9.5 mg/dl (8.5-10.1); Creatinine Clr Calc Pharmacy 86.6 ml/min; Est GFR (Non-African American) 93.2; Potassium 4.1 mmol/L (3.5-5.1)
--- NOTE | 2021-01-30 14:51 | Electrocardiogram Report ---
Test Reason : Blood Pressure : / mmHG Vent. Rate : 070 BPM Atrial Rate : 070 BPM P-R Int : 208 ms QRS Dur : 186 ms QT Int : 480 ms P-R-T Axes : 091 -81 092 degrees QTc Int : 518 ms Atrial-sensed ventricular-paced rhythm with occasional Premature ventricular complexes Abnormal ECG When compared with ECG of 11-FEB-2017 17:40, Vent. rate has decreased BY 25 BPM Confirmed by Ricardo De La Cruz ([id number]) on 01/30/2021 2:51:49 PM Referred By: John Dunn Confirmed By:Augustin De La Cruz
[2021-02-06] MEDS ORDERED: LACTATED RINGER'S 1,000 ML IV SCH (06:00)
[2021-02-06] MEDS ORDERED: HEPARIN SOD 5,000 UNIT/0.5 ML VIAL SQ SCH (06:00)
--- NOTE | 2021-02-06 07:05 | History & Physical Bridge Note ---
Date of Service February 06, 2021 History & Physical Bridge Note I have examined the patient, reviewed the History & Physical and in the interval since the performance of the History & Physical I have noted the following changes of clinical significance: no changes noted
[2021-02-06] MEDS ORDERED: BUPIVACAINE 0.5 % 5 MG/1 ML MPF 30ML VIAL ONE (07:15)
[2021-02-06] MEDS ORDERED: fentaNYL citrate 100 MCG/2 ML VIAL ONE ×2 (07:37)
[2021-02-06] MEDS ORDERED: LIDOCAINE HCL 2% 2 ML VIAL/AMP(20MG/ML) INFIL ONE (07:37)
[2021-02-06] MEDS ORDERED: PROPOFOL IV EMULSION 10 MG/ML 20 ML VIAL IV ONE (07:37)
[2021-02-06] MEDS ORDERED: MIDAZOLAM HCL 1 MG/ML 2ML VIAL ONE (07:37)
[2021-02-06] MEDS ORDERED: ROCURONIUM BROMIDE 10 MG/ML 5 ML VIAL IV ONE ×2 (07:37→11:14)
[2021-02-06] MEDS ORDERED: DEXTRAN ONE (08:33)
[2021-02-06] MEDS ORDERED: D5W ONE (08:33)
[2021-02-06] MEDS ORDERED: DEXTROSE 50% 50 ML SYRINGE IV ONE (08:35)
[2021-02-06] MEDS ORDERED: BELLADONNA/OPIUM SUPP 60 MG SUPP PR ONE (08:56)
[2021-02-06] MEDS ORDERED: ceFAZolin 2000MG 2,000 MG/15 ML SYR IV ONE (09:08)
[2021-02-06] MEDS ORDERED: HYDROmorphone INJ 2 MG/ML SYR/VIAL ONE (09:21)
[2021-02-06] MEDS ORDERED: ePHEDrine sulfate 50 MG/ML SYR ONE (09:22)
[2021-02-06] MEDS ORDERED: SURGICEL ABSORB HEMOSTAT 2IN X 14IN TOP ONE (10:13)
[2021-02-06] MEDS ORDERED: FLOSEAL HEMOSTATIC MATRIX 10ML TOP ONE (11:02)
[2021-02-06] MEDS ORDERED: GLYCOPYRROLATE 0.2 MG/ML VIAL ONE (11:13)
[2021-02-06] MEDS ORDERED: NEOSTIGMINE METHYLSULFATE 5 MG/5 ML SYR ONE (11:13)
[2021-02-06] MEDS ORDERED: LABETALOL HCL IV 5 MG/ML 20ML IV ONE (11:13)
[2021-02-06] MEDS ORDERED: HYDROmorphone INJ 1 MG/ML SYRINGE IV PRN (11:25)
[2021-02-06] MEDS ORDERED: FLUMAZENIL 0.1 MG/1 ML 10 ML VIAL IV PRN (11:25)
[2021-02-06] MEDS ORDERED: fentaNYL citrate 100 MCG/2 ML VIAL IV PRN (11:25)
[2021-02-06] MEDS ORDERED: PROMETHAZINE HCL 12.5 MG in SODIUM CHLORIDE 0.9% 50 ML IV PRN (11:25)
[2021-02-06] MEDS ORDERED: ePHEDrine sulfate 50 MG/ML AMP IV PRN (11:25)
[2021-02-06] MEDS ORDERED: ONDANSETRON INJ 2 MG/ML 2 ML VIAL IV PRN ×2 (11:25→14:51)
[2021-02-06] MEDS ORDERED: ATROPINE SULFATE 0.1 MG/ML 10ML SYR IV PRN (11:25)
[2021-02-06] MEDS ORDERED: NALOXONE HCL 0.4 MG/1 ML VIAL/CARP IV PRN (11:25)
[2021-02-06] MEDS ORDERED: LABETALOL HCL IV 5 MG/ML 20ML IV PRN (11:25)
--- NOTE | 2021-02-06 12:03 | Operative Report ---
PG Post Operative Report Pre & Post Diagnosis Operation Date: 02/06/21 08:05 Pre-Op Diagnosis: Prostate Cancer Post-Op Diagnosis: Prostate Cancer I identified the patient and participated in the time-out.: Yes Procedure Operation Date: 02/06/21 08:05 Actual Procedures p Robotic Assisted Laparoscopic Prostatectomy, Pelvic Lymph Node Dissection(Not Applicable) - John Dunn MD Surgeon Ricardo Dunn MD [employer] Team Member Dominique Nick Estimated Blood Loss 100 Findings Consistent with Post-Op Diagnosis Specimens 1. Periprostatic fat 2. Left pelvic lymph nodes 3. Right pelvic lymph nodes 4. Prostate and seminal vesicles Description of Procedure The patient was identified in the preoperative holding area, appropriate informed consents were reviewed and completed, and he was transported to the operating suite. Subcutaneous heparin was administered in the pre-operative holding area. Upon arrival in the operating suite, he received appropriate antibiotics and general anesthesia. He was positioned in dorsal lithotomy, a B&O suppository was inserted after digital rectal exam, and he was prepped and draped in standard fashion. A Pham catheter was inserted in the sterile field. A Veress needle was passed per umbilicus with uniform insufflation of the abdomen to 15mmHg. He was placed in steep Trendelenburg position. A periumbilical incision was then made to accommodate a 12mm Visiport with 10mm 0degree laparoscope. Inspection of the abdomen was carried out, and there was no evidence of traumatic entry or injury secondary to the Veress needle. After confirming a clear anterior abdominal wall, ports were subsequently placed in standard robotic prostatectomy fashion without incident. The pouch of Jeremie was widely open with a small amount of fluid. I then made an incision in the pouch of Jeremie, overlying the seminal vesicles. Both SVs as well as the ampullae of the vasa were entirely dissected, with the vasa transected 3cm from the prostate. The medial umbilical ligaments were then controlled with bipolar electrocautery just inferior to the umbilicus. Following cauterization, they were divided utilizing monopolar cautery. A peritoneal incision was carried from this location to the medial aspect of the internal inguinal rings bilaterally with care to avoid opening through the ring. This incision was concluded when the vas deferens was reached. Dissection of the bladder and prostate off of the posterior aspect of the pubic arch was completed allowing full visualization of the prostate. The fat overlying the prostate was removed en bloc and passed off the table as a specimen labeled "periprostatic fat". The endopelvic fascia was cleared during this portion of the procedure, and subsequently opened - first on the right and then the left. The incision through the endopelvic fascia began near the prostate-bladder junction and was carried to the apex with extreme care to preserve all lateral levator musculature as well as the periurethral musculature and sphincter complex. I additionally preserved the puboprostatic ligaments. I then controlled the DVC with a 3-0 V-lock suture in overlapping/figure of 8 fashion. The lymph node dissection was then conducted. External iliac vessels were identified on the pelvic side wall. The packet of fat and lymphatic tissue that resides just under the iliac vein was elevated and off of the vein with a split and roll technique. The packet was dissected laterally to the circumflex vein and distally to the obturator nerve which was preserved. The proximal aspect of the packet was carried towards the bifurcation of the iliac vessels. A combination of monopolar and bipolar cautery were used to assist with control. After completing the dissection on both sides, the packets were collected and passed off of the table as specimens labeled "pelvic lymph nodes". My attention then returned to the prostate, with identification of the bladder neck aided by gentle traction on the Pham catheter and lateral to medial pressure at the presumed level of the bladder neck with the robotic instruments. An anterior cystotomy was made, the Pham balloon deflated and the catheter guided through the incision to allow anterior retraction. I attempted to preserve maximal bladder neck musculature as I circumferentially dissected around the bladder neck. After incision through the posterior aspect of the mucosa, the dissection was carried through detrusor muscle until the bilateral ampullae of the vasa were identified. The previously dissected vasa and SVs were brought through the incision and used to elevated the prostate anteriorly. A posterior plane behind the prostate was then developed - splitting Denonvilliers's fascia. This dissection was carried as far as possible towards the apex as well as far as possible laterally. An incision in the lateral prostatic fascia was then made bilaterally to facilitate control of the vascular pedicles and preservation of the nerve bundles. Vasculature running along the posterior/lateral aspect of the prostate was preserved as well as the tissue containing the nerves. The nerve sparing was more aggressive on the right than the left secondary to his pathology. The pedicles were then controlled with a series of Weck clips. The apical attachments of the prostate were remaining at that stage. The DVC was divided after control with bipolar cautery over the prostate. Continuous inspection from anterior and lateral views allowed me to closely follow the apical contour of the prostate and maximally preserve urethral length and tissue. The prostate was entirely freed at that point, and collected in an EndoCatch bag before being moved out of the field of vision. Hemostasis was confirmed and anastomosis of the bladder and urethra was completed utilizing a double armed V- Lock stitch. A new Pham catheter was inserted and the anastomosis tested with irrigation. There was no evidence of leak. A mary kate style stitch was placed bilaterally to functionally marsupialize the area of the lymph node dissection. The robot was undocked, the specimen extracted through expansion of the rossy- umbilical camera port. The fascia was closed with a series of 0-PDS figure of 8 stitches. The right roofer assistant port was closed in two layers - with a figure of 8 0-Vicryl to reapproximate the fascia followed by 4-0 Monocryl to close the skin. Monocryl was used to close all other skin incisions. All wounds were dressed with Dermabond. The case was concluded and the patient taken to the PACU in stable condition. Dominique Nick assisted from incision to closure. I attest to the content of the Intraoperative Record and any orders documented therein. Any exceptions are noted below.
--- NOTE | 2021-02-06 12:28 | Anesthesiology Progress Note ---
Date of Service February 06, 2021 Anesthesia Post Procedure Vital Signs Vital Signs: Temp Pulse Pulse Resp BP BP Pulse Ox 02/06/21 12:10 63 19 152/73 H 97 02/06/21 12:00 59 L 10 L 141/81 H 98 02/06/21 11:50 36.5 C 61 16 146/82 H 95 02/06/21 06:35 36.4 C L 68 20 155/69 H 99 Transfer of Care Handoff Completed per policy Notes Mental Status: alert / awake / arousable Patient Amnestic to Procedure: Yes Nausea / Vomiting: adequately controlled Pain: adequately controlled Airway Patency, RR, SpO2: stable & adequate BP & HR: stable & adequate Hydration State: stable & adequate Anesthetic Complications: no major complications apparent
[2021-02-06 13:05] LABS: Basophils # (auto) 0.01 K/uL (0-0.2); Basophils % (auto) 0.1 %; Hematocrit (blood only) 39.4 % (42-52); Hemoglobin 13.6 g/dL (14.0-18.0); Immature Granulocytes # (auto) 0.02 K/uL (0.00-0.02); Immature Granulocytes % (auto) 0.2 %; Lymphocytes % (auto) 5.8 %; Mean Corpuscular Hemoglobin 32.9 pg (25-34); Mean Corpuscular Volume 95.2 fL (80-100); Monocytes # (auto) 0.54 K/uL (0.11-0.59); Monocytes % (auto) 4.5 %; Neutrophils # (auto) 10.71 K/uL (1.4-6.5); Neutrophils % (auto) 89.4 %; Platelet Count 161 K/uL (130-400); RDW Coefficient of Variation 13.1 % (11.5-14.5); RDW Standard Deviation 45.7 fL (36.4-46.3); Red Blood Count 4.14 M/uL (4.7-6.1); White Blood Count 11.98 K/uL (4.8-10.8)
[2021-02-06 13:09] LABS: Mean Corpuscular Hgb Conc 34.5 g/dL (32-36)
[2021-02-06 13:24] LABS: BUN Creatinine Ratio 28.6 (10-20); Calcium 9.1 mg/dl (8.5-10.1); Creatinine Clr Calc Pharmacy 91.8 ml/min; Est GFR (African American) 111.9; Est GFR (Non-African American) 96.6; Potassium 4.7 mmol/L (3.5-5.1)
[2021-02-06] MEDS ORDERED: oxyCODONE HCL IR 5 MG TAB (IMMEDIATE RELEASE) PO PRN (14:51)
[2021-02-06] MEDS ORDERED: MoRPHine SULFATE 4 MG/ML 1 ML CARP\\VIAL IV PRN (14:51)
[2021-02-06] MEDS ORDERED: MoRPHine SULFATE 2 MG/ML CARP IV PRN (14:51)
[2021-02-06] MEDS: NovoLOG INSULIN PUMP SCH ×2 (15:00→21:33)
[2021-02-06] MEDS: LACTATED RINGER'S 1,000 ML IV SCH (15:00)
[2021-02-06] MEDS ORDERED: PHARMACY GLYCEMIC MGMT CONSULT PRN (15:03)
[2021-02-06] MEDS ORDERED: GLUCOSE 40% GEL 15 GM TUBE PO PRN (15:15)
[2021-02-06] MEDS ORDERED: GLUCAGON FOR INJ 1 MG VIAL SQ PRN (15:15)
[2021-02-06] MEDS ORDERED: DEXTROSE 50% 50 ML SYRINGE IV PRN (15:15)
[2021-02-06] MEDS ORDERED: GLUCOSE 10 TABS/TUBE PO PRN (15:15)
[2021-02-06] MEDS ORDERED: INSULIN ASPART 100 UNITS/ML VIAL SC PRN (15:15)
[2021-02-06] MEDS ORDERED: CARBOHYDRATES FOR HYPOGLYCEMIA PO PRN (15:15)
--- NOTE | 2021-02-06 15:19 | Pharmacy Report ---
Pharmacy Glycemic Short Note 2 - Date of Service February 06, 2021 - Glycemic Short BSG Results (Last 24 hours): 02/06/21 02/06/21 02/06/21 06:15 08:28 09:15 Glucose POC Glucose 126 H 72 130 H 02/06/21 02/06/21 02/06/21 11:17 11:54 12:44 Glucose 231 H POC Glucose 114 H 210 H 02/06/21 14:45 Glucose POC Glucose 253 H OUTPATIENT ANTIDIABETIC REGIMEN: * Novolog insulin pump * Per endocrine notes (01/01/21): TDD of 23-24 units, total basal dose of 14 units/day, and insulin:CHO of 13 * HbA1c: 7.4% (12/14/20) ASSESSMENT: * AB is a 70 year old male POD #0 s/p laparoscopic prostatectomy * Managed has type 1 DM, managed with insulin pump as an outpatient -> pump was not worn during surgery * BSGs unsurprisingly elevated postoperatively at 210 and 253 mg/dL * Patient has pump supplies with him -> will connect and use while inpatient PLAN FOR INPATIENT GLYCEMIC CONTROL: Pt is to manage BSGs with insulin pump per outpatient settings. * RN will have patient read and sign agreement [id number] Insulin Pump Therapy Patient Agreement. * RN will provide and explain form [id number] Flowsheet for Patient * Patient will document their insulin dose given on NS-824 which is kept at the bedside, available to caregivers upon request, and which becomes part of the permanent medical record. If at any time the patients condition evidences that he/she is not able to manage the insulin pump (i.e. frequent hypo/hyperglycemia) Pharmacy will assume glycemic control by discontinuing the pump & managing with SQ basal bolus insulin regimen for the interim. PLAN FOR DISCHARGE: * Patient follows with hazardous materials tanker driver - ensure timely follow-up for further adjustments to pump settings
[2021-02-06] MEDS: ceFAZolin 2000MG 2,000 MG/15 ML SYR IV SCH (16:33)
[2021-02-06] MEDS ORDERED: INSULIN ASPART 100 UNITS/ML 3 ML PEN SC ONE ×2 (20:00→21:30)
[2021-02-06] MEDS: HEPARIN SOD 5,000 UNIT/0.5 ML VIAL SQ SCH (21:31)
[2021-02-06] MEDS: LATANOPROST 0.005% OP SOLN 2.5 ML BTL OP SCH (21:33)
[2021-02-07] MEDS: LACTATED RINGER'S 1,000 ML IV SCH ×3 (00:10→19:08)
[2021-02-07] MEDS: ceFAZolin 2000MG 2,000 MG/15 ML SYR IV SCH (00:11)
[2021-02-07] MEDS: INSULIN ASPART 100 UNITS/ML 3 ML PEN SC SCH ×7 (00:34→21:04)
[2021-02-07] MEDS: KETOROLAC TROMETHAMINE 15 MG/ML VIAL IV PRN ×2 (02:57→21:07)
--- NOTE | 2021-02-07 07:57 | Urology Progress Note ---
Date of Service February 07, 2021 Assessment & Plan (1) Prostate cancer: POD#1 s/p RALP - doing well - improve BG control - ambulate - diet - labs pending Admission and Anticipated Discharge Date Admission Date: February 06, 2021 Subjective feeling well some discomfort at the tip of the penis, minimal abdominal discomfort concerned about the blood glucose control Review of Systems Review of Systems: All systems reviewed & are unremarkable except as noted in HPI & below Physical Exam Constitutional: well developed and well nourished Neck: neck nontender Respiratory: normal respiratory effort; no respiratory distress and does not use accessory muscles Cardiovascular: Rate/Rhythm: regular rate Vessels: radial pulses present Extremities: no edema Gastrointestinal (Abdomen): Inspection/Auscultation: abdomen normal to inspection Percussion/Palpation: abdomen soft (incisions appropriate, appropriately tender); abdomen nontender and no guarding Musculoskeletal: Head/Neck/Chest: normocephalic and head atraumatic Extremities: extremities normal to inspection Skin: no rashes and no lesions Trauma: no evidence of skin trauma Neurologic: awake; not obtunded Speech / Cognition: normal speech Motor/Sensory: no tremor Psychiatric: Orientation: alert and oriented x 3 Genitourinary: no CVA tenderness Lymphatic: no lymphadenopathy Results & Data ([facility]) Vital Signs (Past 12 Hours) Vital Signs Temp Pulse Resp BP Pulse Ox 02/07/21 07:40 36.7 C 81 16 111/48 L 96 02/07/21 04:15 36.6 C 81 18 127/58 L 96 02/07/21 00:23 36.6 C 82 18 137/61 96 PG Care Time/CCT Total # of Minutes Spent Total Time Spent with Patient: Total time spent is greater than 50% in coordination of care (as documented) at patient's floor/unit and/or counseling patient: Coding Level of Care Code 27405 Subseq Hosp Care Lvl 2 Diagnoses Prostate cancer C61
[2021-02-07] MEDS: ACETAMINOPHEN 325 MG TAB PO PRN (08:24)
[2021-02-07] MEDS: HEPARIN SOD 5,000 UNIT/0.5 ML VIAL SQ SCH ×2 (08:25→21:06)
[2021-02-07] MEDS ORDERED: INSULIN GLARGINE SOLOSTAR 100 UNITS/ML 3 ML PEN SC ONE (08:45)
[2021-02-07 08:46] LABS: BUN Creatinine Ratio 34.4 (10-20); Calcium 8.6 mg/dl (8.5-10.1); Creatinine Clr Calc Pharmacy 76.7 ml/min; Est GFR (Non-African American) 89.7; Potassium 4.5 mmol/L (3.5-5.1)
[2021-02-07 09:02] LABS: Basophils # (auto) 0.01 K/uL (0-0.2); Basophils % (auto) 0.1 %; Hematocrit (blood only) 30.8 % (42-52); Hemoglobin 10.7 g/dL (14.0-18.0); Immature Granulocytes # (auto) 0.01 K/uL (0.00-0.02); Immature Granulocytes % (auto) 0.1 %; Lymphocytes # (auto) 1.19 K/uL (1.2-3.4); Mean Corpuscular Hemoglobin 32.6 pg (25-34); Mean Corpuscular Hgb Conc 34.7 g/dL (32-36); Mean Corpuscular Volume 93.9 fL (80-100); Monocytes # (auto) 1.26 K/uL (0.11-0.59); Monocytes % (auto) 13.7 %; Neutrophils % (auto) 73.1 %; Platelet Count 149 K/uL (130-400); RDW Coefficient of Variation 12.9 % (11.5-14.5); RDW Standard Deviation 44.8 fL (36.4-46.3); Red Blood Count 3.28 M/uL (4.7-6.1); White Blood Count 9.17 K/uL (4.8-10.8)
[2021-02-07] MEDS: oxyCODONE HCL IR 5 MG TAB (IMMEDIATE RELEASE) PO PRN (13:11)
--- NOTE | 2021-02-07 13:36 | Pharmacy Report ---
Pharmacy Glycemic Short Note 2 - Date of Service February 07, 2021 - Glycemic Short BSG Results (Last 24 hours): 02/06/21 02/06/21 02/06/21 14:45 16:39 19:14 Glucose POC Glucose 253 H 225 H 238 H 02/06/21 02/06/21 02/07/21 19:46 21:16 00:17 Glucose POC Glucose 261 H 271 H 286 H 02/07/21 02/07/21 02/07/21 02:39 05:26 08:00 Glucose 291 H POC Glucose 250 H 212 H 02/07/21 02/07/21 02/07/21 08:25 08:27 09:42 Glucose POC Glucose 325 H* 316 H* 283 H 02/07/21 02/07/21 11:04 12:08 Glucose POC Glucose 241 H 257 H OUTPATIENT ANTIDIABETIC REGIMEN: * Novolog insulin pump * Per endocrine notes (01/01/21): TDD of 23-24 units, total basal dose of 14 units/day, and insulin:CHO of 13 * HbA1c: 7.4% (12/14/20) ASSESSMENT: * AB is a 70 year old male POD #0 s/p laparoscopic prostatectomy * Managed has type 1 DM, managed with insulin pump as an outpatient -> pump was not worn during surgery * BSGs unsurprisingly elevated postoperatively at 210 and 253 mg/dL * Patient has pump supplies with him -> will connect and use while inpatient PLAN FOR INPATIENT GLYCEMIC CONTROL: 02/07 * Patients blood sugars remained elevated overnight, insulin pump was removed overnight as thought not to be connected properly. Patient received q4H novolog overnight. BSG this morning up to 325, novolog boluses would have been covering basal needs but additional would have been needed to correct glucose fully. * Discussed with patient this morning and gave lantus dose of 13 units, this is approximate to his home basal dose (13-14 units/day total, although requirements fluctuate throughout the day, up to 0.8 units at some times.). At home his carb ratio is 13 and sensitivity factor is 50. We tightened his correction factor to 25 this morning (weight based stress of 3) and carb ratio of 10 given hyperglycemia. * BSGs did trend downward although still elevated in the 200s and went up slightly. Discussed again with patient, tightened correction factor to 20. Will loosen/tighten as needed. * Tentative plan for discharge tomorrow morning, pts to bring in insulin pump supplies, plan to restart pump tomorrow morning prior to discharge. 02/06 Pt is to manage BSGs with insulin pump per outpatient settings. * RN will have patient read and sign agreement [id number] Insulin Pump Therapy Patient Agreement. * RN will provide and explain form [id number] Flowsheet for Patient * Patient will document their insulin dose given on NS-824 which is kept at the bedside, available to caregivers upon request, and which becomes part of the permanent medical record. If at any time the patients condition evidences that he/she is not able to manage the insulin pump (i.e. frequent hypo/hyperglycemia) Pharmacy will assume glycemic control by discontinuing the pump & managing with SQ basal bolus insulin regimen for the interim. PLAN FOR DISCHARGE: * Patient follows with time clock inspector - ensure timely follow-up for further adjustments to pump settings
[2021-02-07] MEDS: LATANOPROST 0.005% OP SOLN 2.5 ML BTL OP SCH (21:07)
[2021-02-08] MEDS: LACTATED RINGER'S 1,000 ML IV SCH (04:10)
[2021-02-08 07:18] LABS: Basophils # (auto) 0.01 K/uL (0-0.2); Basophils % (auto) 0.1 %; Immature Granulocytes # (auto) 0.01 K/uL (0.00-0.02); Immature Granulocytes % (auto) 0.1 %; Lymphocytes # (auto) 0.89 K/uL (1.2-3.4); Lymphocytes % (auto) 11.3 %; Mean Corpuscular Hemoglobin 32.5 pg (25-34); Mean Corpuscular Hgb Conc 34.8 g/dL (32-36); Mean Corpuscular Volume 93.5 fL (80-100); Mean Platelet Volume 10.9 fL (7.4-10.4); Monocytes # (auto) 0.91 K/uL (0.11-0.59); Monocytes % (auto) 11.6 %; Neutrophils # (auto) 6.03 K/uL (1.4-6.5); Neutrophils % (auto) 76.9 %; Platelet Count 131 K/uL (130-400); RDW Coefficient of Variation 12.8 % (11.5-14.5); RDW Standard Deviation 44.3 fL (36.4-46.3); Red Blood Count 2.46 M/uL (4.7-6.1); White Blood Count 7.85 K/uL (4.8-10.8)
[2021-02-08 07:46] LABS: BUN Creatinine Ratio 44.7 (10-20); Calcium 8.2 mg/dl (8.5-10.1); Creatinine Clr Calc Pharmacy 110.1 ml/min; Est GFR (African American) 120.7; Est GFR (Non-African American) 104.1; Potassium 4.4 mmol/L (3.5-5.1)
[2021-02-08] MEDS: INSULIN ASPART 100 UNITS/ML 3 ML PEN SC SCH (09:06)
[2021-02-08] MEDS: HEPARIN SOD 5,000 UNIT/0.5 ML VIAL SQ SCH (09:25)
--- NOTE | 2021-02-08 10:02 | Urology Progress Note ---
Date of Service February 08, 2021 Assessment & Plan (1) Prostate cancer: Postop day #2 status post robotic prostatectomy Overall seems to be gradually progressing Clinically looks stable, hemoglobin, however, has dropped considerably on labs We will repeat a hemoglobin this morning, if further drop, likely plan for CT to rule out any intra abdominal bleeding. He has not manifested any clinical signs of active bleeding aside from the drop in hemoglobin, and there was no bleeding issue during surgery. Glucose control has not been perfect, we will revert to his self controlled pump Admission and Anticipated Discharge Date Admission Date: February 06, 2021 Subjective Gradually improving He has some abdominal discomfort, he reports he had relief with flatus Hungry No nausea Still with abdominal pain, minimal ambulation thus far Urine clear Creatinine has dropped considerably to 0.5baseline closer to 1.0 Interestingly his hemoglobin has also dropped, currently 8, no appreciable active bleeding from any incisions nor into his urine, clinically he has had hemodynamically stable and has not manifested signs of anemia, no hypotension, no tachycardia, no respiratory distress Physical Exam Physical Exam: Incisions appropriate Urine clear Abdomen modestly distended Results & Data ([facility]) Vital Signs (Past 12 Hours) Vital Signs Temp Pulse Resp BP Pulse Ox 02/08/21 07:30 36.3 C L 76 16 134/57 L 96 02/07/21 23:19 36.6 C 73 16 126/61 96 PG Care Time/CCT Total # of Minutes Spent Total Time Spent with Patient: Total time spent is greater than 50% in coordination of care (as documented) at patient's floor/unit and/or counseling patient: Coding Level of Care Code 91974 Subseq Hosp Care Lvl 3 Diagnoses Prostate cancer C61
[2021-02-08 10:08] LABS: Hematocrit (blood only) 22.9 % (42-52); Hemoglobin 8.1 g/dL (14.0-18.0)
[2021-02-08] MEDS: NovoLOG INSULIN PUMP SCH ×3 (13:00→21:00)
--- NOTE | 2021-02-08 13:59 | Pharmacy Report ---
Pharmacy Glycemic Short Note 2 - Date of Service February 08, 2021 - Glycemic Short BSG Results (Last 24 hours): 02/07/21 02/07/21 02/07/21 14:11 15:47 16:49 Glucose POC Glucose 217 H 194 H 200 H 02/07/21 02/08/21 02/08/21 20:36 06:43 08:03 Glucose 196 H POC Glucose 201 H 236 H 02/08/21 12:01 Glucose POC Glucose 250 H OUTPATIENT ANTIDIABETIC REGIMEN: * Novolog insulin pump * Per endocrine notes (01/01/21): TDD of 23-24 units, total basal dose of 14 units/day, and insulin:CHO of 13 * HbA1c: 7.4% (12/14/20) ASSESSMENT: * AB is a 70 year old male POD #2 s/p laparoscopic prostatectomy * Managed has type 1 DM, managed with insulin pump as an outpatient -> pump was not worn during surgery * BSGs unsurprisingly elevated postoperatively at 210 and 253 mg/dL * Patient has pump supplies with him -> will connect and use while inpatient PLAN FOR INPATIENT GLYCEMIC CONTROL: 02/08 * Pump supplies brought in, Pt is to manage BSGs with insulin pump per outpatient settings. * Pump started around 1100, BSG 250 after already started eating, continue pump at this time. * Likely DC home tomorrow, monitoring H&H 02/07 * Patients blood sugars remained elevated overnight, insulin pump was removed overnight as thought not to be connected properly. Patient received q4H novolog overnight. BSG this morning up to 325, novolog boluses would have been covering basal needs but additional would have been needed to correct glucose fully. * Discussed with patient this morning and gave lantus dose of 13 units, this is approximate to his home basal dose (13-14 units/day total, although requirements fluctuate throughout the day, up to 0.8 units at some times.). At home his carb ratio is 13 and sensitivity factor is 50. We tightened his correction factor to 25 this morning (weight based stress of 3) and carb ratio of 10 given hyperglycemia. * BSGs did trend downward although still elevated in the 200s and went up slightly. Discussed again with patient, tightened correction factor to 20. Will loosen/tighten as needed. * Tentative plan for discharge tomorrow morning, pts to bring in insulin pump supplies, plan to restart pump tomorrow morning prior to discharge. 02/06 Pt is to manage BSGs with insulin pump per outpatient settings. * RN will have patient read and sign agreement [id number] Insulin Pump Therapy Patient Agreement. * RN will provide and explain form [id number] Flowsheet for Patient * Patient will document their insulin dose given on NS-824 which is kept at the bedside, available to caregivers upon request, and which becomes part of the permanent medical record. If at any time the patients condition evidences that he/she is not able to manage the insulin pump (i.e. frequent hypo/hyperglycemia) Pharmacy will assume glycemic control by discontinuing the pump & managing with SQ basal bolus insulin regimen for the interim. PLAN FOR DISCHARGE: * Patient follows with cupola patcher helper - ensure timely follow-up for further adjustments to pump settings
[2021-02-08] MEDS: oxyCODONE HCL IR 5 MG TAB (IMMEDIATE RELEASE) PO PRN (20:02)
[2021-02-08] MEDS: LATANOPROST 0.005% OP SOLN 2.5 ML BTL OP SCH (20:03)
[2021-02-08 20:46] LABS: Hematocrit (blood only) 19.3 % (42-52); Hemoglobin 6.9 g/dL (14.0-18.0)
[2021-02-08] MEDS ORDERED: SODIUM CHLORIDE 0.9% 250 ML IV PRN ×2 (21:01→22:13)
--- NOTE | 2021-02-08 21:30 | Communication Note ---
Date of Service: February 08, 2021 This provider was asked by the dayshift team to follow-up on results of repeat hemoglobin hematocrit secondary to postoperative anemia. Patient did have a hemoglobin and hematocrit drawn at approximately 8:00 PM. Hemoglobin was noted to be 6.9 and hematocrit was noted to be 19.3. This hemoglobin represented approximately 1 g drop from values checked earlier today at approximately 10:00 AM. Patient was visited bedside. He denied any chest pain, shortness of breath, lightheadedness, or dizziness, and was essentially noted to be asymptomatic regarding his noted anemia. Vital signs were reviewed and he was not hypotensive or tachycardic. His urine output is noted to be adequate. On physical exam his belly is firm with mild distention. Patient does have significant scrotal swelling and ecchymosis. Dr. Dunn has already ordered transfusion of 2 units of packed red blood cells. I discussed the case with him and we will plan on obtaining a noncontrast CT scan of the abdomen and pelvis once the blood transfusion is completed. I have ordered this test for approximately 7:00 AM tomorrow morning. Discussed the above plan with bedside nurse and she does not note any additional concerns at this time.
[2021-02-09 07:40] LABS: Basophils # (auto) 0.01 K/uL (0-0.2); Basophils % (auto) 0.2 %; Eosinophils # (auto) 0.01 K/uL (0-0.5); Eosinophils % (auto) 0.2 %; Hematocrit (blood only) 27.2 % (42-52); Hemoglobin 9.5 g/dL (14.0-18.0); Immature Granulocytes # (auto) 0.01 K/uL (0.00-0.02); Immature Granulocytes % (auto) 0.2 %; Lymphocytes # (auto) 0.93 K/uL (1.2-3.4); Mean Corpuscular Hemoglobin 31.7 pg (25-34); Mean Corpuscular Volume 90.7 fL (80-100); Mean Platelet Volume 10.6 fL (7.4-10.4); Monocytes # (auto) 0.66 K/uL (0.11-0.59); Monocytes % (auto) 11.3 %; Neutrophils # (auto) 4.21 K/uL (1.4-6.5); Neutrophils % (auto) 72.1 %; Platelet Count 114 K/uL (130-400); RDW Coefficient of Variation 15.1 % (11.5-14.5); RDW Standard Deviation 50.4 fL (36.4-46.3); White Blood Count 5.83 K/uL (4.8-10.8)
[2021-02-09 08:20] LABS: BUN Creatinine Ratio 26.3 (10-20); Calcium 8.5 mg/dl (8.5-10.1); Creatinine Clr Calc Pharmacy 108.2 ml/min; Est GFR (African American) 119.8; Est GFR (Non-African American) 103.3
--- NOTE | 2021-02-09 08:21 | CT Scan Report ---
ABDOMEN AND PELVIS CT WITHOUT CONTRAST CT DOSE: 280.42 mGy.cm HISTORY: assess for pelvic hematoma TECHNIQUE: Multiaxial CT images of the abdomen and pelvis were performed without contrast. A dose lo wering technique was utilized adhering to the principles of ALARA. COMPARISON STUDY: Abdomen and pelvis CT 12/21/2020. FINDINGS: Small bilateral pleural effusions. Pacemaker wires are noted. Patchy densities within the l ower lobes posteriorly favor compressive atelectasis. No suspicious lytic or blastic osseous lesions. Moderate pneumoperitoneum. Small amount of gas within the anterior abdominal wall. Postoperative jarett nges consistent with recent prostatectomy. Small of gas at the resection bed. There is a moderate hem atoma within the deep pelvis primarily surrounding the bladder and adjacent to the distal sigmoid col on. The largest collection of blood products in the deep pelvis is seen on image 330 and measures 6.7 x 5.8 cm. There is a Pham catheter within the decompressed bladder. There is mild mass effect along the bladder from the pelvic hematoma which is seen along the anterior and left lateral side of the b ladder. There is diffuse mesenteric and moderate body wall edema consistent with anasarca. Suboptimal evaluation for bowel pathology due to the lack of intravenous and oral contrast. The appendix is bor derline dilated at 7 mm. No dilated loops of bowel to suggest an obstruction. No retroperitoneal lymp hadenopathy. No hydronephrosis. The unenhanced liver, gallbladder, spleen, adrenal glands, and pancre as are unremarkable. IMPRESSION: 1. Moderate pneumoperitoneum. This is nonspecific but likely related to the patient's recent postoper ative state. An underlying bowel injury is not excluded. Consider follow-up to ensure resolution. 2. Moderate pelvic hematoma surrounding the bladder and adjacent to the distal sigmoid colon as descr ibed above. This results in mild mass effect along the bladder. 3. Moderate anasarca and small bilateral pleural effusions. 4. Slightly dilated appendix measuring 7 mm. Acute appendicitis is considered less likely given the r ecent postoperative changes. Follow-up can be performed if the patient develops progressive right low er quadrant pain. ACT 112: Negative or not required by law. Electronically signed by: Misbah Meneses M.D. 02/09/2021 8:20 AM
[2021-02-09 08:22] LABS: Mean Corpuscular Hgb Conc 34.9 g/dL (32-36)
--- NOTE | 2021-02-09 09:14 | Urology Progress Note ---
Date of Service February 09, 2021 Assessment & Plan (1) Prostate cancer: slowly progressing transfused 2 U [address] last night CT - pelvic hematoma, extends anteriorly, on the left side, and slightly posterior to the bladder - not massive, but clearly the major contributor to the drop in H and H recheck labs this afternoon - hope for spontaneous resolution of ooze ambulate/out of bed today reviewed path - gl 7, confined to prostate, pos apical margin, no LN involvement, no SV involvment Admission and Anticipated Discharge Date Admission Date: February 06, 2021 Subjective H and H dropped again last evening decided to transfuse given his cardiac hx tolerated transfusion well, H and H zeeshan appropriately feels ok today still with abdominal tenderness, still feels like he needs to pass flatus tolerating a diet Physical Exam Physical Exam: ecchymotic scrotum, no palpable hematoma abd mildly distended incisions appropriate Results & Data ([facility]) Vital Signs (Past 12 Hours) Vital Signs Temp Pulse Pulse Pulse Resp BP BP 02/09/21 07:21 36.7 C 74 16 142/66 H 02/09/21 06:30 36.9 C 72 14 132/58 L 02/09/21 03:40 36.9 C 76 16 130/61 02/09/21 03:39 36.9 C 73 16 133/64 02/09/21 03:24 36.9 C 71 16 123/64 02/09/21 03:07 37.2 C 80 20 120/58 L 02/09/21 02:52 36.9 C 74 18 123/54 L 02/09/21 02:12 36.9 C 74 18 128/54 L 02/09/21 01:12 36.9 C 71 16 123/63 02/09/21 00:42 36.9 C 76 16 122/56 L 02/09/21 00:30 37.2 C 80 16 127/83 02/09/21 00:12 37.2 C 80 16 121/60 02/08/21 22:24 36.8 C 80 16 127/56 L 02/08/21 21:10 80 116/80 Pulse Ox 02/09/21 07:21 97 02/09/21 06:30 96 02/09/21 03:40 97 02/09/21 03:39 97 02/09/21 03:24 95 02/09/21 03:07 97 02/09/21 02:52 95 02/09/21 02:12 95 02/09/21 01:12 96 02/09/21 00:42 96 02/09/21 00:30 99 02/09/21 00:12 97 02/08/21 22:24 96 02/08/21 21:10 PG Care Time/CCT Total # of Minutes Spent Total Time Spent with Patient: Total time spent is greater than 50% in coordination of care (as documented) at patient's floor/unit and/or counseling patient: Coding Level of Care Code 62217 Subseq Hosp Care Lvl 3 Diagnoses Prostate cancer C61
[2021-02-09] MEDS: NovoLOG INSULIN PUMP SCH ×4 (09:24→21:23)
[2021-02-09 16:32] LABS: Hemoglobin 9.8 g/dL (14.0-18.0)
[2021-02-09] MEDS: LATANOPROST 0.005% OP SOLN 2.5 ML BTL OP SCH (21:22)
[2021-02-09] MEDS: ACETAMINOPHEN 325 MG TAB PO PRN (21:26)
[2021-02-09] MEDS: oxyCODONE HCL IR 5 MG TAB (IMMEDIATE RELEASE) PO PRN (21:26)
[2021-02-10 06:53] LABS: Basophils # (auto) 0.01 K/uL (0-0.2); Basophils % (auto) 0.2 %; Eosinophils # (auto) 0.06 K/uL (0-0.5); Hematocrit (blood only) 27.7 % (42-52); Hemoglobin 9.5 g/dL (14.0-18.0); Immature Granulocytes # (auto) 0.01 K/uL (0.00-0.02); Immature Granulocytes % (auto) 0.2 %; Lymphocytes # (auto) 0.84 K/uL (1.2-3.4); Lymphocytes % (auto) 14.5 %; Mean Corpuscular Hemoglobin 31.4 pg (25-34); Mean Corpuscular Hgb Conc 34.3 g/dL (32-36); Mean Corpuscular Volume 91.4 fL (80-100); Mean Platelet Volume 10.9 fL (7.4-10.4); Monocytes # (auto) 0.66 K/uL (0.11-0.59); Monocytes % (auto) 11.4 %; Neutrophils # (auto) 4.23 K/uL (1.4-6.5); Neutrophils % (auto) 72.7 %; Platelet Count 141 K/uL (130-400); RDW Coefficient of Variation 15.4 % (11.5-14.5); RDW Standard Deviation 51.7 fL (36.4-46.3); Red Blood Count 3.03 M/uL (4.7-6.1); White Blood Count 5.81 K/uL (4.8-10.8)
[2021-02-10 07:12] LABS: BUN Creatinine Ratio 30.7 (10-20); Calcium 8.2 mg/dl (8.5-10.1); Creatinine Clr Calc Pharmacy 126.2 ml/min; Est GFR (African American) 127.6; Est GFR (Non-African American) 110.1; Potassium 3.9 mmol/L (3.5-5.1)
[2021-02-10] MEDS: NovoLOG INSULIN PUMP SCH ×4 (09:59→21:41)
--- NOTE | 2021-02-10 13:38 | Urology Progress Note ---
Date of Service February 10, 2021 Assessment & Plan (1) Prostate cancer: POD4 s/p RALP with hematoma and anemia s/p transfused 2 units pRBC Slowly improved. No bowel function yet. Some distension and pressure. Scrotal swelling. Labs stable. Vitals stable. Tolerating diet. No significant n/v Discussed options. Discussed additional bowel management. Will add miralax. Long conversation of conservative management. Discussed scrotal support when ambulating, Scrotal elevation when sitting/laying flat, Ice (20 mins on/20 mins off) when acutely swollen or tender, Heating Pad (20 mins on/20 mins off) when sore, and avoidance of injury/protection when active. Will monitor. Likely home in next day. Catheter likely out on friday. Discussed with at length by phone ([phone]) Continued active management of issues with new development of early ileus. Admission and Anticipated Discharge Date Admission Date: February 06, 2021 Subjective Postop from urologic surgery. Patient has been tolerating well, but is having some pain and discomfort. Incisions have been mild sore. Having some abdominal distension/gas pains. Has tolerated catheter. Has not had severe pain or uncontrollable pain. Patient has been ambulating. Has not had bowel movement or major change. No new nausea or vomiting. Had tolerated anesthesia without major problems Tolerated diet postoperatively. POD 3 had significant drop in h&h and had 2 x pRBC Review of Systems Review of Systems: All systems reviewed & are unremarkable except as noted in HPI & below Physical Exam Physical Exam: General: Alert in no acute distress. HEENT: Normocephalic Atraumatic. Inspection normal. Cranial Nerves 2-12 Grossly intact. Normal inspection of face. Normal inspection of neck. Psychologic: Normal affect. Respiratory: Nonlabored. No use of accessory muscles. No tachypnea or dyspnea. Cardiovascular: No tachycardia Skin: [place] and Dry. No rashes or visible lesions. Extremities/Lymphatics: No edema Abdomen: Appropriately tender. Mild distended. No rebound or guarding. Wound: Clean, dry, covered. Results & Data ([facility]) Vital Signs (Past 12 Hours) Vital Signs Temp Pulse Resp BP Pulse Ox 02/10/21 07:28 36.7 C 73 16 147/63 H 97 PG Care Time/CCT Total # of Minutes Spent Total Time Spent with Patient: Total time spent is greater than 50% in coordination of care (as documented) at patient's floor/unit and/or counseling patient: Coding Level of Care Code 37573 Subseq Hosp Care Lvl 3 Diagnoses Prostate cancer C61
[2021-02-10] MEDS: POLYETHYLENE (MIRALAX) 17 GM PACK PO PRN (15:08)
[2021-02-10] MEDS: ACETAMINOPHEN 325 MG TAB PO PRN (22:40)
[2021-02-10] MEDS: LATANOPROST 0.005% OP SOLN 2.5 ML BTL OP SCH (22:40)
[2021-02-11] MEDS: oxyCODONE HCL IR 5 MG TAB (IMMEDIATE RELEASE) PO PRN ×2 (02:36→16:38)
[2021-02-11 06:25] LABS: Basophils # (auto) 0.01 K/uL (0-0.2); Basophils % (auto) 0.2 %; Eosinophils # (auto) 0.17 K/uL (0-0.5); Eosinophils % (auto) 3.7 %; Hematocrit (blood only) 27.4 % (42-52); Hemoglobin 9.5 g/dL (14.0-18.0); Lymphocytes # (auto) 1.19 K/uL (1.2-3.4); Mean Corpuscular Hemoglobin 31.8 pg (25-34); Mean Corpuscular Hgb Conc 34.7 g/dL (32-36); Mean Corpuscular Volume 91.6 fL (80-100); Mean Platelet Volume 10.8 fL (7.4-10.4); Monocytes # (auto) 0.64 K/uL (0.11-0.59); Neutrophils # (auto) 2.57 K/uL (1.4-6.5); Neutrophils % (auto) 56.1 %; Platelet Count 170 K/uL (130-400); RDW Coefficient of Variation 14.7 % (11.5-14.5); RDW Standard Deviation 49.4 fL (36.4-46.3); Red Blood Count 2.99 M/uL (4.7-6.1); White Blood Count 4.58 K/uL (4.8-10.8)
[2021-02-11 06:44] LABS: BUN Creatinine Ratio 22.7 (10-20); Calcium 8.3 mg/dl (8.5-10.1); Creatinine Clr Calc Pharmacy 114.3 ml/min; Est GFR (African American) 122.5; Est GFR (Non-African American) 105.7; Potassium 4.3 mmol/L (3.5-5.1)
[2021-02-11] MEDS: POLYETHYLENE (MIRALAX) 17 GM PACK PO PRN (07:57)
[2021-02-11] MEDS: NovoLOG INSULIN PUMP SCH ×2 (09:40→13:05)
--- NOTE | 2021-02-11 15:55 | Urology Progress Note ---
Date of Service February 11, 2021 Assessment & Plan (1) Prostate cancer: POD5 s/p RALP with hematoma and anemia s/p transfused 2 units pRBC Hemoglobin is stable. Overall patient has slowly improved. Some minor return of bowel function . Some distension and pressure. Scrotal swelling. Labs stab le. Vitals stable. Tolerating diet. No significant n/v Discussed options. Discussed additional bowel management. Will add miralax. Long conversation of conservative management. Discussed scrotal support when ambulating, Scrotal elevation when sitting/laying flat, Ice (20 mins on/20 mins off) when acutely swollen or tender, Heating Pad (20 mins on/20 mins off) when sore, and avoidance of injury/protection when active. Once again encourage patient to continue with scrotal elevation. As patient was positioned today with likely worsen or exacerbate issues with swelling and discomfort. Will monitor. Likely home in next day. Catheter likely out on friday. Discussed with at length by phone ([phone]) We will likely discharge this afternoon as long as patient continues to improve. Admission and Anticipated Discharge Date Admission Date: February 06, 2021 Subjective Postop from urologic surgery. Patient has been tolerating well, but is having some pain and discomfort. Incisions have been mild sore. Having some abdominal distension/gas pains. Has tolerated catheter. Has not had severe pain or uncontrollable pain. Patient has been ambulating. Has not had bowel movement or major change. No new nausea or vomiting. Had tolerated anesthesia without major problems Tolerated diet postoperatively. POD 3 had significant drop in h&h and had 2 x pRBC Review of Systems Review of Systems: All systems reviewed & are unremarkable except as noted in HPI & below Physical Exam Physical Exam: General: Alert in no acute distress. HEENT: Normocephalic Atraumatic. Inspection normal. Cranial Nerves 2-12 Grossly intact. Normal inspection of face. Normal inspection of neck. Psychologic: Normal affect. Respiratory: Nonlabored. No use of accessory muscles. No tachypnea or dyspnea. Cardiovascular: No tachycardia Skin: [place] and Dry. No rashes or visible lesions. Extremities/Lymphatics: No edema Abdomen: Appropriately tender. Mild distended. No rebound or guarding. Wound: Clean, dry, covered. : Mild ecchymosis with very minor swelling of the scrotum. Results & Data ([facility]) Vital Signs (Past 12 Hours) Vital Signs Temp Pulse Resp BP Pulse Ox 02/11/21 15:32 36.6 C 74 18 124/68 97 02/11/21 07:50 36.8 C 72 18 127/64 96 PG Care Time/CCT Total # of Minutes Spent Total Time Spent with Patient: Total time spent is greater than 50% in coordination of care (as documented) at patient's floor/unit and/or counseling patient: Coding Level of Care Code 28909 Subseq Hosp Care Lvl 2 Diagnoses Prostate cancer C61
--- NOTE | 2021-02-11 16:14 | Discharge Summary ---
Date of Service February 11, 2021 Admission HPI Per Admitting Provider See H&P Admission Exam Per Admitting Provider See H&P Principal Diagnosis Prostate cancer Discharge Exam General: Alert in no acute distress. HEENT: Normocephalic Atraumatic. Inspection normal. Psychologic: Normal affect. Skin: [place] and Dry. No rashes or visible lesions. Abdomen: Soft Non-distended. No rebound or guarding. 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 wheat Allergy Severe celiac's Verified 02/06/21 06:25 disease grass pollen Allergy Mild runny Verified 02/06/21 06:25 nose, itchy eyes latex Allergy Mild BAD TASTE Verified 02/06/21 06:25 IN MOUTH fragrance Allergy Severe Sneezing Uncoded 02/06/21 06:26 Procedures Performed Operation Date: 02/06/21 08:05 Actual Procedures p Robotic Assisted Laparoscopic Prostatectomy, Pelvic Lymph Node Dissection(Not Applicable) - John Dunn MD Ordered Studies 02/09/21 07:00 CT abd pelvis wo con Stat Hospital Course (1) Prostate cancer: POD5 s/p RALP with hematoma and anemia s/p transfused 2 units pRBC Hemoglobin is stable. Overall patient has slowly improved. Some minor return of bowel function . Some distension and pressure. Scrotal swelling. Labs stable. Vitals stable. Tolerating diet. No significant n/v Discussed options. Discussed additional bowel management. Will add miralax. Long conversation of conservative management. Discussed scrotal support when ambulating, Scrotal elevation when sitting/laying flat, Ice (20 mins on/20 mins off) when acutely swollen or tender, Heating Pad (20 mins on/20 mins off) when sore, and avoidance of injury/protection when active. Once again encourage patient to continue with scrotal elevation. As patient was positioned today with likely worsen or exacerbate issues with swelling and discomfort. Will monitor. Likely home in next day. Catheter likely out on friday. Discussed with at length by phone ([phone]) We will likely discharge this afternoon as long as patient continues to improve. Total Time Total Time Spent Total Time Spent (In Minutes): 10 minutes Total Time Includes: Examination of the Patient, Discharge Planning, Medication Reconciliation and Communication With Other Providers Discharge Plan Discharge Items Patient Disposition: Home - Self-Care Reason For Visit: Prostate Cancer Discharge Diagnosis: Prostate Cancer Condition on Discharge: Good Activity: Per Instructions section Lifting: No more than 25 pounds Bathing Comment: No tub baths or soaks. Ok to shower after discharge. Sexual Activity: Wait until after follow-up appointment Exercise/Sports: Wait until after follow-up appointment Driving/Machine Use: Do not drive while taking narcotic pain medication Non-emergency contact: Surgeon and Urologist Call non-emergency contact if: your pain is not controlled, you have a fever, your temperature is above 101, your wound has increased redness, your wound has increased drainage and your wound pain has increased Follow-up/Referrals: Edison Godinez MD [Primary Care Provider] - John Dunn MD [Physician] - 02/21/21 2:15 pm [facility],Nurse [FAKE FOR SCHEDULES] - 02/13/21 9:20 am Diet: Carb Count or DM1 Addtl Attending Provider Instructions: Please take all medications as prescribed and keep all follow-ups as scheduled. Please call our office at [phone] with any questions, concerns or need to reschedule appointments for any reason. We are happy to assist you We have sent an antibiotic to your pharmacy of choice. Please begin antibiotic as prescribed the day BEFORE your scheduled voiding trial at [facility]. Please continue antibiotic every 12 hours through the day AFTER your voiding trial. Activity: We recommend having someone with you for the first few days after surgery to help care for you. For the first 2 weeks after surgery, we would like you to get up and walk around your house. However, we recommend limit physical activity that would increase your heart rate. This will allow your body to rest and heal. Take naps if you feel tired. Don't lift anything heavier than 10 pounds, mow the law or ride a bicycle until your follow-up appointment. Please avoid long car rides. Home Care: Unless directed otherwise, drink 6 to 8 glasses of water a day (enough to keep your urine light colored). This will also help keep a healthy flow of urine. We recommend using a stool softener for the first two weeks to avoid constipation. Pham Catheter or Suprapubic Catheter care: Keep the catheter well secured with either a leg back or leg strap with large bag. Empty your bag when it's about half full. You may notice some blood in the bag. This is normal after surgery and while the catheter is in place. Use mild soap (such as Dove or Dial) and water to wash the catheter and the head of your penis daily, or more frequently if needed. Return to your normal diet, we encourage good protein intake to promote healing. You may shower as normal. Please avoid tub baths or soaking until catheter removed and incisions well healed. Wearing sweat pants while you have the catheter is recommended, they will be more comfortable. Follow-up Your follow up appointments for having your catheter removed, and follow up with your physician should already be scheduled. If you have any questions regarding this, please contact our office. Your final pathology report will be discussed at your physician follow-up appointment. Call [facility] at [phone] right away if you have any of the following: Chest pain or trouble breathing (call [phone] or go to the hospital) Fever of 101F or higher, uncontrolled vomiting Heavy bleeding, clots, or bright red blood from the catheter Catheter that falls out or stops draining Foul-smelling discharge from your catheter Redness, swelling, warmth, or increased pain at your incision site Drainage, pus, or bleeding from your incision Pending Studies at Discharge: Yes Studies:: Pathology Stand-Alone Forms: My [facility] Medications and DC Order Prescriptions: New ciprofloxacin HCl 500 mg tablet 500 mg PO BID 3 Days Qty: 6 RF: 0 docusate sodium [Colace] 100 mg capsule 100 mg PO BID Qty: 60 RF: 0 oxycodone-acetaminophen [Percocet] 5-325 mg tablet 1 tab PO TID PRN (Reason: pain) Qty: 14 RF: 0 Continued zinc 50 mg tablet 50 mg PO HS RF: 0 (DME) Dexcom G6 Sensor Device See Rx Instructions .ROUTE .MEDSUPPLY Qty: 3 RF: 5 (DME) FreeStyle Test strip See Dose Instructions .ROUTE .MEDSUPPLY RF: 0 latanoprost 0.005 % drops 1 drp OP HS RF: 0 Novolog U-100 Insulin aspart 100 unit/mL solution 40 unit continuous subcutaneous infusion DAILY RF: 0 epinephrine 0.3 mg/0.3 mL auto-injector 0.3 mg subcut UD PRN (Reason: Allergy Symptoms) RF: 0 cholecalciferol (vitamin D3) 1,000 unit capsule 3,000 units PO HS RF: 0 insulin aspart U-100 [Novolog Flexpen U-100 Insulin] 100 unit/mL (3 mL) insulin pen 5 unit subcut UD PRN (Reason: Hyperglycemia) RF: 0 levocetirizine [Xyzal] 5 mg tablet 5 mg PO QAM RF: 0 Discharge Orders: Discharge Order (Routine); Ordered 02/11/21 Ordered By: Luis Munoz Admission Data Admit Date/Time: 02/06/21 11:57 Attending Provider: John Dunn Admit Provider: John Dunn Primary Care Provider: Edison Godinez Other Interventions: Discharge Summary Assessment (RN) Last Done: 02/11/21 15:58 Coding Level of Care Code D/C Day Management <30 mins Diagnoses Prostate cancer C61
--- NOTE | 2021-02-14 10:20 | Discharge Summary ---
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 Mcdonough underwent robotic prostatectomyuneventful surgery, minimal blood loss, stable condition immediately after surgery. He was admitted as a standard portion of the recovery from this type of surgery. He progressed relatively well overnight, however it was noted that there was a substantial drop in his hemoglobin on his labs on postoperative day #1. There were no clinical signs of bleeding, his urine had cleared appropriately he had no tachycardia or hypotension, no shortness of breath. We elected to continue monitoring him and he had a further drop on postoperative day #2. He also was experiencing some lower abdominal pain although not drastically out of proportion with expectations. He was not yet moving his bowels but it passed a small amount of flatus which seemed to improve his abdominal discomfort. Given the subsequent drop in hemoglobin, repeat labs were ordered for later in the morning of postoperative day 2stability was noted. I elected to repeat labs again 12 hours later and there was a further drop. At this point his hemoglobin had decreased below 8 and given his cardiac history we elected to transfuse him 2 units of packed red cells. His labs improved appropriately overnight and remained stable throughout the remainder of his course with no evidence of any further bleeding. He also underwent a CT after his transfusion which shows a hematoma in the pelvis, although the size of the hematoma does not seem to entirely explain the drop in hemoglobin. Fortunately he progressed well through his last 48 hours of the hospitalization and became much more ambulatory and his pain was much more controlled. He ultimately was discharged home in stable condition. We did review his pathology prior to discharge Total Time Total Time Spent Total Time Spent (In Minutes): 45 Total Time Includes: Examination of the Patient, Discharge Planning, Medication Reconciliation, Communication With Other Providers and Other Discharge Plan Discharge Items Patient Disposition: Home - Self-Care Reason For Visit: Prostate Cancer Discharge Diagnosis: Prostate Cancer Condition on Discharge: Good Activity: Per Instructions section Lifting: No more than 25 pounds Bathing Comment: No tub baths or soaks. Ok to shower after discharge. Sexual Activity: Wait until after follow-up appointment Exercise/Sports: Wait until after follow-up appointment Driving/Machine Use: Do not drive while taking narcotic pain medication Non-emergency contact: Surgeon and Urologist Call non-emergency contact if: your pain is not controlled, you have a fever, your temperature is above 101, your wound has increased redness, your wound has increased drainage and your wound pain has increased Follow-up/Referrals: Edison Godinez MD [Primary Care Provider] - John Dunn MD [Physician] - 02/21/21 2:15 pm [facility],Nurse [FAKE FOR SCHEDULES] - 02/13/21 9:20 am Diet: Carb Count or DM1 Addtl Attending Provider Instructions: Please take all medications as prescribed and keep all follow-ups as scheduled. Please call our office at [phone] with any questions, concerns or need to reschedule appointments for any reason. We are happy to assist you We have sent an antibiotic to your pharmacy of choice. Please begin antibiotic as prescribed the day BEFORE your scheduled voiding trial at [facility]. Please continue antibiotic every 12 hours through the day AFTER your voiding trial. Activity: We recommend having someone with you for the first few days after surgery to help care for you. For the first 2 weeks after surgery, we would like you to get up and walk around your house. However, we recommend limit physical activity that would increase your heart rate. This will allow your body to rest and heal. Take naps if you feel tired. Don't lift anything heavier than 10 pounds, mow the law or ride a bicycle until your follow-up appointment. Please avoid long car rides. Home Care: Unless directed otherwise, drink 6 to 8 glasses of water a day (enough to keep your urine light colored). This will also help keep a healthy flow of urine. We recommend using a stool softener for the first two weeks to avoid constipation. Pham Catheter or Suprapubic Catheter care: Keep the catheter well secured with either a leg back or leg strap with large bag. Empty your bag when it's about half full. You may notice some blood in the bag. This is normal after surgery and while the catheter is in place. Use mild soap (such as Dove or Dial) and water to wash the catheter and the h ead of your penis daily, or more frequently if needed. Return to your normal diet, we encourage good protein intake to promote healing. You may shower as normal. Please avoid tub baths or soaking until catheter removed and incisions well healed. Wearing sweat pants while you have the catheter is recommended, they will be more comfortable. Follow-up Your follow up appointments for having your catheter removed, and follow up with your physician should already be scheduled. If you have any questions regarding this, please contact our office. Your final pathology report will be discussed at your physician follow-up appointment. Call [facility] at [phone] right away if you have any of the following: Chest pain or trouble breathing (call [phone] or go to the hospital) Fever of 101F or higher, uncontrolled vomiting Heavy bleeding, clots, or bright red blood from the catheter Catheter that falls out or stops draining Foul-smelling discharge from your catheter Redness, swelling, warmth, or increased pain at your incision site Drainage, pus, or bleeding from your incision Pending Studies at Discharge: Yes Studies:: Pathology Stand-Alone Forms: My [facility] Medications and DC Order Prescriptions: New docusate sodium [Colace] 100 mg capsule 100 mg PO BID Qty: 60 RF: 0 oxycodone-acetaminophen [Percocet] 5-325 mg tablet 1 tab PO TID PRN (Reason: pain) Qty: 14 RF: 0 Continued zinc 50 mg tablet 50 mg PO HS RF: 0 (DME) Dexcom G6 Sensor Device See Rx Instructions .ROUTE .MEDSUPPLY Qty: 3 RF: 5 (DME) FreeStyle Test strip See Dose Instructions .ROUTE .MEDSUPPLY RF: 0 latanoprost 0.005 % drops 1 drp OP HS RF: 0 Novolog U-100 Insulin aspart 100 unit/mL solution 40 unit continuous subcutaneous infusion DAILY RF: 0 epinephrine 0.3 mg/0.3 mL auto-injector 0.3 mg subcut UD PRN (Reason: Allergy Symptoms) RF: 0 cholecalciferol (vitamin D3) 1,000 unit capsule 3,000 units PO HS RF: 0 insulin aspart U-100 [Novolog Flexpen U-100 Insulin] 100 unit/mL (3 mL) insulin pen 5 unit subcut UD PRN (Reason: Hyperglycemia) RF: 0 levocetirizine [Xyzal] 5 mg tablet 5 mg PO QAM RF: 0 Discharge Orders: Discharge Order (Routine); Ordered 02/11/21 Ordered By: Luis Munoz Admission Data Admit Date/Time: 02/06/21 11:57 Attending Provider: John Dunn Admit Provider: John Dunn Primary Care Provider: Edison Godinez Other Interventions: Discharge Summary Assessment (RN) Last Done: 02/11/21 15:58 Coding Level of Care Code D/C Day Management >30 mins Diagnoses Prostate cancer C61
--- NOTE | 2021-02-22 11:05 | Coding Query ---
Your help is needed for correct coding of this account; please clarify if the patients pelvic hematoma was: ( ) expected out of the surgery (x ) unexpected complication from the surgery - very well established risk of surgery, but not something that typically requires imaging or transfusion (he required both) ( )other please specify Thank you Aranza JOHN
== END 2021-02-11 17:12 | disposition home or self-care (01) | DRG 707 ==
LOC: ASU 05:58 → 3W 11:57

== ENCOUNTER 2024-09-17 09:51 | Observation (INO) ==
[2024-09-17 10:49] LABS: Basophils # (auto) 0.03 K/uL (0.00-0.20); Basophils % (auto) 0.7 %; Eosinophils # (auto) 0.05 K/uL (0.00-0.50); Eosinophils % (auto) 1.2 %; Hematocrit (blood only) 42.1 % (42.0-52.0); Hemoglobin 14.2 g/dl (14.0-18.0); Immature Granulocytes # (auto) 0.01 K/uL (0.01-0.20); Immature Granulocytes % (auto) 0.2 %; Lymphocytes % (auto) 23.5 %; Mean Corpuscular Hemoglobin 32.3 pg (25.0-34.0); Mean Corpuscular Hgb Conc 33.7 g/dL (32.0-36.0); Mean Corpuscular Volume 95.7 fL (80.0-100.0); Mean Platelet Volume 11.4 fL (9.4-12.4); Monocytes # (auto) 0.36 K/uL (0.11-0.59); Monocytes % (auto) 8.5 %; Neutrophils % (auto) 65.9 %; Platelet Count 160 K/uL (130-400); RDW Coefficient of Variation 12.9 % (11.5-14.5); RDW Standard Deviation 45.7 fL (36.4-46.3); White Blood Count 4.25 K/ul (4.8-10.8)
[2024-09-17 11:02] LABS: Albumin Globulin Ratio 1.5 (0.9-2); Albumin Level 4.2 gm/dl (3.4-5.0); Bilirubin,Total 0.8 mg/dl (0.2-1.0); Calcium 9.6 mg/dl (8.6-10.3); Creatinine Clr Calc Pharmacy 77.8 ml/min; Globulin 2.8 gm/dl (2.5-4.0); Potassium 4.2 mmol/L (3.5-5.1)
[2024-09-17 11:06] LABS: Prothrombin Time 10.9 Seconds (9.0-12.0); Troponin I High Sensitivity 5.6 pg/ml (0-20)
[2024-09-17] MEDS: fentaNYL citrate PF 100 MCG/2 ML VIAL IV PRN (11:36)
[2024-09-17] MEDS: ACETAMINOPHEN 1,000 MG/100 ML VIAL IV STA (11:38)
[2024-09-17] MEDS: OPTIRAY 320 100ml IV ONE (12:11)
--- NOTE | 2024-09-17 12:39 | CT Scan Report ---
CT OF THE ABDOMEN AND PELVIS WITH CONTRAST CLINICAL HISTORY: Right lower quadrant abdominal pain. COMPARISON STUDY: CT of the abdomen and pelvis February 17, 2021. TECHNIQUE: Following IV administration of 94 mL of Optiray, axial images of the abdomen and pelvis we re obtained from the lung bases to the proximal femurs. Images were reviewed in the axial, sagittal, and coronal planes. IV contrast was administered without complication. Automated exposure control wa s utilized for the study. A dose lowering technique was utilized adhering to the principles of ALARA . CT DOSE: 448.42 mGy.cm FINDINGS: Pacer leads are partially imaged. Lung bases are unremarkable. No pneumatosis, free air or portal venous gas is present. The liver, spleen, adrenal glands, kidneys and pancreas are unremarkabl e. There is no biliary or pancreatic ductal dilatation. There is no hydronephrosis. No abdominal or p elvic lymphadenopathy is present. A small amount of fluid within the pelvis is present. There is mild wall thickening of a few small bowel loops. Associated interloop fluid is present. Several small bow el loops and the sigmoid colon converge within the upper pelvis on image [id number]. Several small bowel loops are mildly dilated and fluid-filled, measuring up to 3 cm. There is no significant colonic dil atation., There is a large amount of stool within the colon. No fluid collections are present. There is no lymphadenopathy. Major vasculature is patent. The bladder is mildly distended. There is no hydr onephrosis. IMPRESSION: 1. Wall thickening and mucosal hyperemia of several small bowel loops. Associated interloop fluid and ascites within the pelvis. The findings may reflect an enteritis. However, several small bowel loops and the sigmoid colon converge within the central abdomen with mild swirling and a few mildly dilate d fluid-filled small bowel loops. Therefore, a developing small bowel obstruction could appear simila r and close clinical follow-up is recommended. Although this involves the sigmoid colon, the degree o f dilatation does not suggest a volvulus at this time. Imaging follow-up is recommended. 2. Large amount of stool within the colon. 3. No pneumatosis, free air or portal venous gas. ACT 112: Negative or not required by law. Electronically signed by: Onur Howard M.D. 09/17/2024 12:37 PM
[2024-09-17 13:12] LABS: Appearance Urine Clear (Clear); Bacteria Urine Automated None Seen (None Seen); Bilirubin Urine Negative (Negative); Blood Urine Negative (Negative); Cast Urine Automated 0-2 /lpf (0-2); Color Urine Yellow; Epithelial Cell Urine Auto 0-2 /hpf (0-2); Glucose Urine UA Negative (Negative); Ketones Urine Trace (Negative); Leukocyte Esterase Urine Negative (Negative); Nitrite Urine Negative (Negative); Protein Urine Trace (Negative); RBC Urine Automated 0-2 /hpf (0-2); Specific Gravity Urine 1.018 (1.000-1.030); Urobilinogen Urine Negative (Negative); WBC Urine Automated 0-5 /hpf (0-5); pH Urine >= 9.0 (4.5-7.5)
--- NOTE | 2024-09-17 13:27 | History & Physical Report ---
Date of Service September 17, 2024 Assessment & Plan (1) Abdominal pain: Plan: Abdominal pain, suspect due to developing SBO 2 days of nausea, then --> Acute 10/10 onset abdominal pain 12/6 with loss of flatus/bowel movements. No prior history of abdominal surgeries or SBO. Does have a history of type I DM at risk for diabetic enteric neuropathy/gastroparesis CT shows wall thickening and hyperemia of small bowel loops, interloop fluid and ascites within the pelvis suspicious for enteritis but with several small bowel loops and sigmoid colon converging the central abdomen and a few mildly dilated fluid-filled small bowel loops from which a developing small bowel obstruction is within the differential. Sigmoid colonic involvement is noted without findings suggestive of volvulus. No leukocytosis - Lactate pending Abrupt onset of pain greater than 10/10, now is improving post morphine and with rest. Nausea but no vomiting If nausea/swelling develop/worsening --> NTG to LIS Surgery consulted to follow N.p.o. IV FM Multimodal pain control, Tylenol first-line morphine breakthrough (2) Type 1 diabetes mellitus with long-term current use of insulin: Plan: Type I DM, generally well-controlled with BSG's between [id number] Uses a algorithm based continuous glucose monitor and pump. Typically around 24 units of insulin total daily dose Patient prefers to continue to use his own insulin pump on admission. This automatically adjusts but typically delivers mealtime boluses of around 3 units breakfast, 3 units lunch, 4 units dinner. Continues a basal rate of an average of 0.6 generally n.p.o. As patient proves uses on pump will continue self-management at this time however if he falls outside of goal range [id number], or requires progression to surgery then is agreeable to switching to pharmacy glycemic control at that time Patient never been in DKA at this time. Bicarb is normal on admission, urine is with trace ketones in the setting of no p.o. intake. Anion gap is normal. Plan Chronic stable issues: S/p prostatectomy with some incontinence: Bladder scan as needed, no recent retention. No acute change in management IBSC: Management of SBO as above, symptomatic care DVT prophylaxis: Lovenox. Hold DVT prophylaxis if any surgical intervention is anticipated Diet: N.p.o., IV FM Disposition: Medical surgical CODE STATUS, full code History of Present Illness Primary Care Provider: NO PCP Marvin is a 74-year-old male with a past medical history of type 1 diabetes, celiac disease, prostate cancer, pancreatic insufficiency who presents to the ER for evaluation of right lower quadrant abdominal pain. CT shows wall thickening and hyperemia of small bowel loops, interloop fluid and ascites within the pelvis suspicious for enteritis but with several small bowel loops and sigmoid colon converging the central abdomen and a few mildly dilated fluid-filled small bowel loops from which a developing small bowel obstruction is within the differential. Sigmoid colonic involvement is noted without findings suggestive of volvulus. Leukocytosis is not present Creatinine is 0.3 Troponin normal Lipase normal UA noninfected appearing Patient is recommended for admission for possible developing SBO Past surgical history includes left knee arthroscopy, cardiac pacemaker placement. No history of appendectomy Per Pt at Bedside: Marvin reports all of a sudden this morning had sudden onset 'blowing through the top of the 1-10/10 scale, 10 doesn't describe it' pain that occured all of a sudden at 7:30am. Coul dnot have a bowel movement, was having abdominal spasms, and has had conitnued pain since then improved to tolerable after morphine but still a 6-7+. NO history of abdominal surgery. 2 d ay sof preceding intermittent nausea without diarrhea or vomiting Not passing any gas Has a history of IBS (not IBD) with cramping/bloating/constipation, but nothing this severe and current episode is completely different Has a history of celiac disease. Follows with Dr. Florez, and would like all of his information forwarded to [facility]. Had an appointment Friday. Surgical Hx: Prostate surgery January 2021, doing well since. MedHx: - T1DM. Uses an insulin pump. Switched from novolog to admelog. TDD ~24-28units. New pump does not bolus based on settings, runs on an algorithm via [employer]. Usually seems to deliver 3u breakfast, 3 lunch, ~4 per supper. Old pump was ~0.6u/hr, 0.3u/hr midnight-4hr similar with new pump. BSG usually runs 140s. Last A1C 7.6%. NO history of DKA. - IBS-C - Celiac - History of complete heart block post Tick Bite with AV katie failure. S/P dual chamber ventricular pacemaker. Due to be replaced in ~1-1.5years. 100% ventricularly paced - History of prostatectomy. Does have some issues with some incontinence since. - ?pancreatic insuffiency Medical History: Reviewed Medications: Reviewed Surgical History: Reviewed Family history: Reviewed Allergies: Reviewed. NKMA. 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 wheat Allergy Severe celiac's Verified 08/03/24 09:26 disease grass pollen Allergy Mild runny Verified 08/03/24 09:26 nose, itchy eyes fragrance Allergy Severe Sneezing Uncoded 08/03/24 09:26 Home Medications Medication Instructions Recorded Confirmed Type latanoprost 0.005 % eye drops 1 drp ophthalmic (eye) HS 12/26/20 08/03/24 History zinc gluconate-vitamin C [zinc] 25 mg PO DAILY 03/22/21 08/03/24 History Gvoke HypoPen 2-Pack 1 mg/0.2 mL 1 mg (0.2 mL) subcut .COMPLEX #0.4 05/01/21 08/03/24 Rx subcutaneous auto-injector mL (glucagon) insulin syringes (disposable) 1 mL #50 ea 12/18/22 08/03/24 Rx pen needle, diabetic 32 gauge x #100 ea 01/06/23 08/03/24 Rx 5/32" (BD Cecilia 2nd Gen Pen Needle) insulin aspart U-100 100 unit/mL 50 unit (0.5 mL) subcut UD PRN 01/08/23 08/03/24 Rx (3 mL) subcutaneous pen (Novolog Hyperglycemia #1 box FlexPen U-100 Insulin aspart) fluocinonide 0.05 % topical cream 1 applic topical BID #60 grams 07/30/23 08/03/24 Rx blood sugar diagnostic (FreeStyle #200 ea 09/08/23 08/03/24 Rx Test strips) subcutaneous insulin pump 09/15/23 08/03/24 History triamcinolone acetonide 0.025 % 1 applic topical BID #15 grams 01/26/24 08/03/24 Rx topical cream cholecalciferol (vitamin D3) 50 4,000 unit PO DAILY 03/17/24 08/03/24 History mcg (2,000 unit) capsule epinephrine 0.3 mg/0.3 mL 0.3 mg (0.3 mL) subcut UD PRN 03/17/24 08/03/24 Rx injection, auto-injector Allergy Symptoms #2 ea insulin lispro 100 unit/mL 45 unit (0.45 mL) subcut DAILY #50 04/23/24 08/03/24 Rx subcutaneous solution (Admelog U-) mL inqqte-njgkfstz-kohzcle 2 cap PO TID 06/24/24 08/03/24 History 12,000-38,000-60,000 unit capsule,delayed rel (Creon) zecfvx-ugwagecq-xrrmytd cap PO 08/02/24 08/03/24 History 3,000-9,500-15,000 unit capsule, delayed rel (Creon) doxycycline hyclate 100 mg tablet See Rx Instructions .Route 08/05/24 Rx .COMPLEX #20 tabs Past Med/Surg History Problem List Abdominal pain (Acute) Exocrine pancreatic insufficiency Sebaceous cyst Adult situational stress disorder Subclinical hypothyroidism Weight loss Allergic rhinitis Type 1 diabetes mellitus with long-term current use of insulin Celiac disease Elevated alkaline phosphatase level Physical deconditioning Male stress incontinence Prostate cancer (Chronic 11/27/20) Medical History History of kidney stones History of prostate cancer (~11/27/20) Diagnosed 11/27/[address] Complete heart block Status post implant of dual-chamber Medtronic pacemaker 02/11/2017--follows with Dr. De La Cruz Lumbar canal stenosis Hearing loss Disc degeneration, lumbar Cardiac pacemaker (02/11/17) Indication - complete heart block--Medtronic July 2020 Benign enlargement of prostate Glaucoma Surgical History History of arthroscopy of left knee History of esophagogastroduodenoscopy (EGD) History of wisdom tooth extraction History of prostate biopsy (11/27/20) Lesley 4+4, 3+4, 3+3 History of permanent cardiac pacemaker placement (02/11/17) meditronic History of colonoscopy (~03/2016) with polypectomy Family History Grandfather (Paternal) , Passed in mid 80's of esophageal cancer Stomach cancer, Onset Age: 40 had surgery and did well Father , Passed age 92 of bladder cancer Prostate cancer, Onset Age: 75 had external with seed implant Mother , Passed age 95 of dementia complications No problems noted. Brother No problems noted. Brother No problems noted. Brother No problems noted. Sister No problems noted. Uncle Family history of diabetes mellitus Family/Other Family history of diabetes mellitus nephew Grandfather (Paternal) Family history of esophageal cancer Other Has no children No family history of adverse response to anesthesia Social History Smoking Status: Never smoker Second Hand Exposure: No; Do You Dip or Chew Tobacco: No; Hx Alcohol Use: Yes Alcohol type: beer and wine Alcohol Intake Frequency: 4 or More x per/Week Hx Substance Use: No Preferred Language: Ecuadorean Communication Ability: Effective Visual Impairment: Limited Hearing Ability: Hard of Hearing Secure Software Assessor Required: No Beliefs That Will Affect Care: None marital status: Current Living Situation: Spouse current occupational status: retired 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 NAD. Cooperative. HEENT: Atraumatic, normocephalic. Vision and hearing grossly intact Pulm: CTAB A&P. -wheezes, -rales, -rhonchi. Symmetrical chest rise. No increased work of breathing. No respiratory distress. Cardiac: RRR, -mrg. Radial pulses intact and symmetrical. Abdominal: +RLQ TTP, without rebound/guarding/rigidity. Insulin pump in place at LLQ. Results & Data Results & Data Vital Signs (Past 12 Hours) Vital Signs Temp Pulse Resp BP Pulse Ox O2 Del Method 09/17/24 12:33 60 19 95 09/17/24 12:27 139/64 09/17/24 12:27 60 16 96 09/17/24 12:12 71 20 97 09/17/24 11:30 61 21 99 09/17/24 11:30 147/78 H 09/17/24 11:12 65 23 99 09/17/24 10:59 67 09/17/24 10:57 67 31 H 100 09/17/24 10:57 97 Room Air 09/17/24 10:02 36.4 C L 67 18 151/79 H 99 PG Care Time/CCT Total # of Minutes Spent Total Time Spent with Patient: Total time spent is greater than 50% in coordination of care (as documented) at patient's floor/unit and/or counseling patient: Coding Level of Care Code 82873 INT INP/OBS CARE 3/75MIN Diagnoses Abdominal pain R10.9 Type 1 diabetes mellitus with long-term current use of insulin E10.9
--- NOTE | 2024-09-17 13:33 | Emergency Department Note ---
Impression & Plan Abdominal pain, SBO (small bowel obstruction) ED Provider Note ED Provider Note NAME: RAISSA POWELL AGE:74 SEX: Male : 1950 ARRIVES VIA: Private vehicle INFORMANT: Patient ED PROVIDER(s): Radha Zarco DO CHIEF COMPLAINT: Abdominal pain HPI: This is a 74-year-old male presents to the emergency department with abdominal pain that began overnight. He states he will get waves of pain but it never completely goes away. He states he did notice the last 3 days he had some intermittent nausea however did not have any abdominal pain and had no vomiting. He denies any recent change in diet although admits they did go to a holiday dinner and there may have been ingredients there that were not gluten-free as he states he has a history of celiac's disease. He denies fevers or chills. He states he did have a normal bowel movement this morning, no other recent changes in urine or stools. No recent travel, no other known sick contacts. No change in any medications. PAST MEDICAL HISTORY:See Below PAST SURGICAL HISTORY:See Below FAMILY HISTORY:See Below SOCIAL HISTORY:See Below HOME MEDICATIONS:See Below ALLERGIES:See Below VITALS:See Below PHYSICAL EXAMINATION: GENERAL: alert, uncomfortable appearing, well nourished, mild distress, non- toxic EYE EXAM: normal conjunctiva, PERRL and EOM's grossly intact OROPHARYNX: no exudate, no erythema, lips, buccal mucosa, and tongue normal and mucous membranes are dry NECK: supple, no nuchal rigidity, no adenopathy, non-tender LUNGS: Clear to auscultation. Normal chest wall mechanics, no w/r/r HEART: no murmurs, S1 normal and S2 normal ABDOMEN: abdomen soft, tenderness with palpation in the right lower quadrant, decreased bowel sounds, no masses, no rebound or guarding. BACK: Back is symmetrical on inspection and there is no deformity, no midline tenderness, no CVA tenderness. SKIN: no rashes, petechiae, orbruising UPPER EXTREMITIES: upper extremities are grossly normal. FROM, nml pulses b/l. LOWER EXTREMITIES: No pitting edema. FROM, nml pulses b/l. NEURO EXAM: Normal sensorium, cranial nerves II-XII grossly intact, normal speech, no facial droop,nogross weakness of arms, no gross weakness of legs. Gross sensation intact. No ataxia. Vital Signs: reviewed and remarkable Differential Diagnosis: Appendicitis, colitis, bowel obstruction, GI bleed, perforation, diverticulitis, UTI, ureterolithiasis, mesenteric ischemia, inguinal hernia, as well as others were considered MEDICAL DECISION MAKING: This is a 74-year-old male presents emergency department due to concern for abdominal pain which began abruptly overnight into this morning. Patient does admit to intermittent nausea recently. He was afebrile and hemodynamically stable. Labs drawn and sent, IV established, EKG performed at bedside interpreted me and patient monitored on telemetry. He was given IV Tylenol, IV Zofran, and IV fentanyl for his symptoms with improvement. He was sent for CT of the abdomen pelvis. CT is read by radiology suggestive of evolving small bowel obstruction versus enteritis. Patient does have a history of constipation although no prior abdominal surgeries. Patient does not seem to have a convincing story for viral syndrome or enteritis. No evidence of UTI. I discussed all results with the patient and family at bedside. We discussed the need for further treatment and evaluation as an inpatient, they verbalized understanding and were in agreement. Case discussed with the hospitalist team additionally. Consultation(s): 1330: Discussed with Dr. Thakkar, [facility] hospitalist team for additional evaluation and mgmt. ER Treatment Provided: See below Diagnostics Interpreted By Me: -ECG: Paced at 62, leftward axis, prolonged intervals consistent with pacing, nonspecific ST/T wave changes -Cardiac Monitoring: An order was placed for continuous cardiac monitoring. The monitor shows a rate of 62 with normal sinus rhythm. -Laboratory studies: As stated above and show below. -Imaging studies: ct a/p - no perf, no gi bleed, no aaa Triage Nursing Note Reviewed Prior/Outside Records Reviewed Past Med/Surg History Problem List (Updated 09/17/24 @ 16:20 by Radha Zarco DO) SBO (small bowel obstruction) (Acute) Small bowel obstruction Enteritis Abdominal pain (Acute) Exocrine pancreatic insufficiency Sebaceous cyst Adult situational stress disorder Subclinical hypothyroidism Weight loss Allergic rhinitis Type 1 diabetes mellitus with long-term current use of insulin Celiac disease Elevated alkaline phosphatase level Physical deconditioning Male stress incontinence Prostate cancer (Chronic 11/27/20) Medical History History of kidney stones History of prostate cancer (~11/27/20) Diagnosed 11/27/[address] Complete heart block Status post implant of dual-chamber Medtronic pacemaker 02/11/2017--follows with Dr. De La Cruz Lumbar canal stenosis Hearing loss Disc degeneration, lumbar Cardiac pacemaker (02/11/17) Indication - complete heart block--Medtronic July 2020 Benign enlargement of prostate Glaucoma Surgical History History of arthroscopy of left knee History of esophagogastroduodenoscopy (EGD) History of wisdom tooth extraction History of prostate biopsy (11/27/20) Lesley 4+4, 3+4, 3+3 History of permanent cardiac pacemaker placement (02/11/17) meditronic History of colonoscopy (~03/2016) with polypectomy Family History Grandfather (Paternal) , Passed in mid 80's of esophageal cancer Stomach cancer, Onset Age: 40 had surgery and did well Father , Passed age 92 of bladder cancer Prostate cancer, Onset Age: 75 had external with seed implant Mother , Passed age 95 of dementia complications No problems noted. Brother No problems noted. Brother No problems noted. Brother No problems noted. Sister No problems noted. Uncle Family history of diabetes mellitus Family/Other Family history of diabetes mellitus nephew Grandfather (Paternal) Family history of esophageal cancer Other Has no children No family history of adverse response to anesthesia Social History Smoking Status: Never smoker Second Hand Exposure: No; Do You Dip or Chew Tobacco: No; Hx Alcohol Use: Yes Alcohol type: beer and wine Alcohol Intake Frequency: 4 or More x per/Week Hx Substance Use: No Preferred Language: Slovenian Communication Ability: Effective Visual Impairment: Limited Hearing Ability: Hard of Hearing Contract Specialist Required: No Beliefs That Will Affect Care: None marital status: Current Living Situation: Spouse current occupational status: retired 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 Feels Safe at Home: Yes Childhood Exposure to Second-Hand Smoke: No Diet Comment: Plant Based caffeine: Yes (1.5 cup of coffee/day) during the past year weight has: remained stable Dental Care, Regularly: Yes Assistive Devices: Glasses and Walker Allergies Allergies Allergy/AdvReac Type Severity Reaction Status Date / Time bee venom protein (honey bee) Allergy Severe anaphylaxis Verified 08/03/24 09:26 gluten Allergy Severe celiac's Verified 08/03/24 09:26 disease oats Allergy Severe per Verified 08/03/24 09:26 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 supposed to stay away from oats wheat Allergy Severe celiac's Verified 08/03/24 09:26 disease grass pollen Allergy Mild runny Verified 08/03/24 09:26 nose, itchy eyes fragrance Allergy Severe Sneezing Uncoded 08/03/24 09:26 Home Meds Home Medications Medication Instructions Recorded Confirmed latanoprost 0.005 % eye drops 1 drp OPB HS 12/26/20 09/17/24 subcutaneous insulin pump 09/15/23 09/17/24 cholecalciferol (vitamin D3) 50 4,000 unit PO HS 03/17/24 09/17/24 mcg (2,000 unit) capsule [id number] 1 cap PO BIDM 09/17/24 09/17/24 12,000-38,000-60,000 unit capsule,delayed rel (Creon) zinc acetate 25 mg (zinc) capsule 25 mg PO HS 09/17/24 09/17/24 Previous Rx's Medication Instructions Recorded insulin syringes (disposable) 1 mL #50 ea 12/18/22 pen needle, diabetic 32 gauge x #100 ea 01/06/23/32" (BD Cecilia 2nd Gen Pen Needle) insulin aspart U-100 100 unit/mL 50 unit (0.5 mL) subcut UD PRN 01/08/23 (3 mL) subcutaneous pen (Novolog Hyperglycemia #1 box FlexPen U-100 Insulin aspart) blood sugar diagnostic (FreeStyle #200 ea 09/08/23 Test strips) insulin lispro 100 unit/mL 45 unit (0.45 mL) subcut DAILY #50 04/23/24 subcutaneous solution (Admelog U-) mL Results & Data (ED) Vital Signs Vital Signs - 24 hr 09/17/24 10:02 09/17/24 10:57 09/17/24 10:57 Temperature 36.4 C L Temperature Source Oral Pulse Rate 67 67 Pulse Rate from SpO2 Sensor 67 Pulse Rhythm Regular Regular Pulse Strength Normal Respiratory Rate 18 31 H Respiratory Effort / Characteristics Non-Labored Spontaneous Respiratory Depth Normal Respiratory Pattern Regular Blood Pressure 151/79 H Blood Pressure Mean 103 Blood Pressure Position Lying Pulse Oximetry 99 97 100 Oxygen Delivery Method Room Air Sepsis Recent Fever Within 48 Hours No Sepsis New/Unexplained Change in Mental Status N/A Sepsis Action Taken by Nursing No Action Required 09/17/24 10:59 09/17/24 11:12 09/17/24 11:30 Temperature Temperature Source Pulse Rate 67 65 Pulse Rate from SpO2 Sensor 64 Pulse Rhythm Pulse Strength Respiratory Rate 23 Respiratory Effort / Characteristics Respiratory Depth Respiratory Pattern Blood Pressure 147/78 H Blood Pressure Mean 106 Blood Pressure Position Pulse Oximetry 99 Oxygen Delivery Method Sepsis Recent Fever Within 48 Hours Sepsis New/Unexplained Change in Mental Status Sepsis Action Taken by Nursing 09/17/24 11:30 09/17/24 12:12 09/17/24 12:27 Temperature Temperature Source Pulse Rate 61 71 60 Pulse Rate from SpO2 Sensor 61 67 60 Pulse Rhythm Pulse Strength Respiratory Rate 21 20 16 Respiratory Effort / Characteristics Respiratory Depth Respiratory Pattern Blood Pressure Blood Pressure Mean Blood Pressure Position Pulse Oximetry 99 97 96 Oxygen Delivery Method Sepsis Recent Fever Within 48 Hours Sepsis New/Unexplained Change in Mental Status Sepsis Action Taken by Nursing 09/17/24 12:27 09/17/24 12:33 09/17/24 13:00 Temperature Temperature Source Pulse Rate 60 Pulse Rate from SpO2 Sensor 60 Pulse Rhythm Pulse Strength Respiratory Rate 19 Respiratory Effort / Characteristics Respiratory Depth Respiratory Pattern Blood Pressure 139/64 126/62 Blood Pressure Mean 112 64 Blood Pressure Position Pulse Oximetry 95 Oxygen Delivery Method Sepsis Recent Fever Within 48 Hours Sepsis New/Unexplained Change in Mental Status Sepsis Action Taken by Nursing 09/17/24 13:00 09/17/24 13:21 09/17/24 13:30 Temperature Temperature Source Pulse Rate 60 65 Pulse Rate from SpO2 Sensor 61 64 Pulse Rhythm Pulse Strength Respiratory Rate 14 21 Respiratory Effort / Characteristics Respiratory Depth Respiratory Pattern Blood Pressure 133/60 Blood Pressure Mean 79 Blood Pressure Position Pulse Oximetry 96 95 Oxygen Delivery Method Sepsis Recent Fever Within 48 Hours Sepsis New/Unexplained Change in Mental Status Sepsis Action Taken by Nursing 09/17/24 13:33 Temperature Temperature Source Pulse Rate 65 Pulse Rate from SpO2 Sensor 65 Pulse Rhythm Pulse Strength Respiratory Rate 20 Respiratory Effort / Characteristics Respiratory Depth Respiratory Pattern Blood Pressure Blood Pressure Mean Blood Pressure Position Pulse Oximetry 95 Oxygen Delivery Method Sepsis Recent Fever Within 48 Hours Sepsis New/Unexplained Change in Mental Status Sepsis Action Taken by Nursing Laboratory Data 09/17/24 10:05 09/17/24 10:05 Lab Results 09/17/24 09/17/24 Range/Units 10:05 11:55 WBC 4.25 L (4.8-10.8) K/ul RBC 4.40 L (4.70-6.10) M/uL Hgb 14.2 (14.0-18.0) g/dl Hct 42.1 (42.0-52.0) % MCV 95.7 (80.0-100.0) fL MCH 32.3 (25.0-34.0) pg MCHC 33.7 (32.0-36.0) g/dL RDW Std Deviation 45.7 (36.4-46.3) fL RDW Coeff of [place] 12.9 (11.5-14.5) % Plt Count 160 (130-400) K/uL MPV 11.4 (9.4-12.4) fL Immature Gran % (Auto) 0.2 % Neut % (Auto) 65.9 % Lymph % (Auto) 23.5 % Tate % (Auto) 8.5 % Eos % (Auto) 1.2 % Baso % (Auto) 0.7 % Neut # (Auto) 2.80 (1.40-6.50) K/uL Lymph # (Auto) 1.00 L (1.20-3.40) K/uL Tate # (Auto) 0.36 (0.11-0.59) K/uL Eos # (Auto) 0.05 (0.00-0.50) K/uL Baso # (Auto) 0.03 (0.00-0.20) K/uL Immature Gran # (Auto) 0.01 (0.01-0.20) K/uL PT 10.9 (9.0-12.0) Seconds INR 1.0 (0.9-1.1) Sodium 138 (136-145) mmol/L Potassium 4.2 (3.5-5.1) mmol/L Chloride 103 (98-107) mmol/L Carbon Dioxide 29 (21-32) mmol/L Anion Gap 6 (3-11) BUN 19 (6-23) mg/dl Creatinine 0.73 (0.6-1.4) mg/dl Est Cr Clr Drug Dosing 77.8 ml/min eGFR 94.29 BUN/Creatinine Ratio 26.0 H (10-20) Glucose 160 H (70-99(Fasting)) mg/dl Calcium 9.6 (8.6-10.3) mg/dl Total Bilirubin 0.8 (0.2-1.0) mg/dl AST 24 (13-39) U/L ALT 20 (7-52) U/L Alkaline Phosphatase 140 H (34-104) U/L Troponin I High Sens 5.6 (0-20) pg/ml Total Protein 7.0 (6.0-8.3) gm/dl Albumin 4.2 (3.4-5.0) gm/dl Globulin 2.8 (2.5-4.0) gm/dl Albumin/Globulin Ratio 1.5 (0.9-2) Lipase 33 (11-82) U/L Urine Color Yellow Urine Appearance Clear (Clear) Urine pH >= 9.0 H (4.5-7.5) Ur Specific [place] 1.018 (1.000-1.030) Urine Protein Trace H (Negative) Urine Glucose (UA) Negative (Negative) Urine Ketones Trace H (Negative) Urine Blood Negative (Negative) Urine Nitrite Negative (Negative) Urine Bilirubin Negative (Negative) Urine Urobilinogen Negative (Negative) Ur Leukocyte Esterase Negative (Negative) Urine WBC (Auto) 0-5 (0-5) /hpf Urine RBC (Auto) 0-2 (0-2) /hpf U Hyaline Cast (Auto) 0-2 (0-2) /lpf U Epithel Cells (Auto) 0-2 (0-2) /hpf Urine Bacteria (Auto) None Seen (None Seen) Administered Medications Discontinued Medications Fentanyl Citrate (Fentanyl Citrate Pf 100 Mcg/2 Ml Vial) 25 mcg IV Q15M PRN PRN Reason: Pain Stop: 10/01/24 11:26 Last Admin: 09/17/24 11:36 Dose: 25 mcg Documented By: SHAWN Acetaminophen (Ofirmev) 1,000 mg in 100 mls @ 400 mls/hr IV NOW STA Stop: 09/17/24 11:41 Last Infusion: 09/17/24 12:00 Dose: Infused Documented By: Admin: 09/17/24 11:38 Dose: 400 mls/hr Documented By: SHAWN Ioversol (Optiray 320 100ml) 94 ml IV ONCE ONE Stop: 09/17/24 12:11 Last Admin: 09/17/24 12:11 Dose: 94 ml Documented By: HAILEY Imaging Data Radiologist's Impression: Abdomen/Pelvis CT 09/17/24 11:29 CT OF THE ABDOMEN AND PELVIS WITH CONTRAST CLINICAL HISTORY: Right lower quadrant abdominal pain. COMPARISON STUDY: CT of the abdomen and pelvis February 17, 2021. TECHNIQUE: Following IV administration of 94 mL of Optiray, axial images of the abdomen and pelvis were obtained from the lung bases to the proximal femurs. Images were reviewed in the axial, sagittal, and coronal planes. IV contrast was administered without complication. Automated exposure control was utilized for the study. A dose lowering technique was utilized adhering to the principles of ALARA. CT DOSE: 448.42 mGy.cm FINDINGS: Pacer leads are partially imaged. Lung bases are unremarkable. No pneumatosis, free air or portal venous gas is present. The liver, spleen, adrenal glands, kidneys and pancreas are unremarkable. There is no biliary or pancreatic ductal dilatation. There is no hydronephrosis. No abdominal or pelvic lymphadenopathy is present. A small amount of fluid within the pelvis is present. There is mild wall thickening of a few small bowel loops. Associated interloop fluid is present. Several small bowel loops and the sigmoid colon converge within the upper pelvis on image [id number]. Several small bowel loops are mildly dilated and fluid-filled, measuring up to 3 cm. There is no significant colonic dilatation., There is a large amount of stool within the colon. No fluid collections are present. There is no lymphadenopathy. Major vasculature is patent. The bladder is mildly distended. There is no hydronephrosis. IMPRESSION: 1. Wall thickening and mucosal hyperemia of several small bowel loops. Associated interloop fluid and ascites within the pelvis. The findings may reflect an enteritis. However, several small bowel loops and the sigmoid colon converge within the central abdomen with mild swirling and a few mildly dilated fluid-filled small bowel loops. Therefore, a developing small bowel obstruction could appear similar and close clinical follow-up is recommended. Although this involves the sigmoid colon, the degree of dilatation does not suggest a volvulus at this time. Imaging follow-up is recommended. 2. Large amount of stool within the colon. 3. No pneumatosis, free air or portal venous gas. ACT 112: Negative or not required by law. Electronically signed by: Onur Howard M.D. 09/17/2024 12:37 PM Discharge Plan Visit Data Chief Complaint: Abdominal Pain ED Provider: Radha Zarco Discharge Problem: Abdominal pain, SBO (small bowel obstruction) Patient Disposition: Admitted As Inpatient Discharge Instructions Interventions: ED Discharge Assessment Last Done: 09/17/24 16:16 Discharge Problem: Abdominal pain Qualifiers: Abdominal location: right lower quadrant Qualified Code(s): R10.31 - Right lower quadrant pain
[2024-09-17] MEDS ORDERED: GLUCOSE 10 TAB/TUBE PO PRN (14:00)
[2024-09-17] MEDS ORDERED: GLUCOSE 40% GEL 15 GM TUBE PO PRN (14:00)
[2024-09-17] MEDS ORDERED: DEXTROSE 50% 50 ML SYRINGE IV PRN (14:00)
[2024-09-17] MEDS ORDERED: GLUCAGON FOR INJ 1 MG VIAL SQ PRN (14:00)
[2024-09-17] MEDS ORDERED: CARBOHYDRATES FOR HYPOGLYCEMIA PO PRN (14:00)
--- NOTE | 2024-09-17 14:18 | Surgery Consultation ---
Date of Consultation September 17, 2024 Assessment & Plan (1) Abdominal pain: His CT images and results were personally viewed and interpreted by myself He does have some mild dilation of small bowel without a discrete transition point Likely has a small bowel obstruction history of abdominal surgeries, so more likely an enteritis No plans for any surgical intervention Will keep him n.p.o. for now and await return of bowel function Surgery will follow along (2) Enteritis: (3) Small bowel obstruction: History of Present Illness Reason for Consultation: Small bowel obstruction History of Present Illness This is a 74-year-old male who was admitted this morning for abdominal pain. CT revealed enteritis versus small bowel obstruction. He states that around 730 this morning he developed sharp cramping abdominal pain that would come and go every minute or so. This was associated with nausea without emesis. He denies any previous abdominal surgeries. He states his last normal bowel movement was yesterday morning. He states he is not passing any flatus currently. He states his pain is improved. He is a type I diabetic with insulin pump. He also has a history of celiac disease. 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 wheat Allergy Severe celiac's Verified 08/03/24 09:26 disease grass pollen Allergy Mild runny Verified 08/03/24 09:26 nose, itchy eyes fragrance Allergy Severe Sneezing Uncoded 08/03/24 09:26 Home Medications Medication Instructions Recorded Confirmed Type latanoprost 0.005 % eye drops 1 drp ophthalmic (eye) HS 12/26/20 08/03/24 History zinc gluconate-vitamin C [zinc] 25 mg PO DAILY 03/22/21 08/03/24 History Gvoke HypoPen 2-Pack 1 mg/0.2 mL 1 mg (0.2 mL) subcut .COMPLEX #0.4 05/01/21 08/03/24 Rx subcutaneous auto-injector mL (glucagon) insulin syringes (disposable) 1 mL #50 ea 12/18/22 08/03/24 Rx pen needle, diabetic 32 gauge x #100 ea 01/06/23 08/03/24 Rx " (BD Cecilia 2nd Gen Pen Needle) insulin aspart U-100 100 unit/mL 50 unit (0.5 mL) subcut UD PRN 01/08/23 08/03/24 Rx (3 mL) subcutaneous pen (Novolog Hyperglycemia #1 box FlexPen U-100 Insulin aspart) fluocinonide 0.05 % topical cream 1 applic topical BID #60 grams 07/30/23 08/03/24 Rx blood sugar diagnostic (FreeStyle #200 ea 09/08/23 08/03/24 Rx Test strips) subcutaneous insulin pump 09/15/23 08/03/24 History triamcinolone acetonide 0.025 % 1 applic topical BID #15 grams 01/26/24 08/03/24 Rx topical cream cholecalciferol (vitamin D3) 50 4,000 unit PO DAILY 03/17/24 08/03/24 History mcg (2,000 unit) capsule epinephrine 0.3 mg/0.3 mL 0.3 mg (0.3 mL) subcut UD PRN 03/17/24 08/03/24 Rx injection, auto-injector Allergy Symptoms #2 ea insulin lispro 100 unit/mL 45 unit (0.45 mL) subcut DAILY #50 04/23/24 08/03/24 Rx subcutaneous solution (Admelog U-) mL [id number]-gflzydjw-[id number] 2 cap PO TID 06/24/24 08/03/24 History 12,000-38,000-60,000 unit capsule,delayed rel (Creon) wxmrjo-[id number]-[id number] cap PO 08/02/24 08/03/24 History 3,000-9,500-15,000 unit capsule, delayed rel (Creon) doxycycline hyclate 100 mg tablet See Rx Instructions .Route 08/05/24 Rx .COMPLEX #20 tabs Patient History Medical History History of kidney stones History of prostate cancer (~11/27/20) Diagnosed 11/27/[address] Complete heart block Status post implant of dual-chamber Medtronic pacemaker 02/11/2017--follows with Dr. De La Cruz Lumbar canal stenosis Hearing loss Disc degeneration, lumbar Cardiac pacemaker (02/11/17) Indication - complete heart block--Medtronic July 2020 Benign enlargement of prostate Glaucoma Surgical History History of arthroscopy of left knee History of esophagogastroduodenoscopy (EGD) History of wisdom tooth extraction History of prostate biopsy (11/27/20) Lesley 4+4, 3+4, 3+3 History of permanent cardiac pacemaker placement (02/11/17) meditronic History of colonoscopy (~03/2016) with polypectomy Family History Grandfather (Paternal) , Passed in mid 80's of esophageal cancer Stomach cancer, Onset Age: 40 had surgery and did well Father , Passed age 92 of bladder cancer Prostate cancer, Onset Age: 75 had external with seed implant Mother , Passed age 95 of dementia complications No problems noted. Brother No problems noted. Brother No problems noted. Brother No problems noted. Sister No problems noted. 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 Beliefs That Will Affect Care: None marital status: Current Living Situation: Spouse current occupational status: retired 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 Feels Safe at Home: Yes Childhood Exposure to Second-Hand Smoke: No Diet Comment: Plant Based caffeine: Yes (1.5 cup of coffee/day) during the past year weight has: remained stable Dental Care, Regularly: Yes Assistive Devices: Glasses and Walker Review of Systems Constitutional: no fever and no chills Eyes: no blind spots, no dry eyes and no eye pain Ear, Nose, Mouth, Throat: no ear pain and no hearing loss Respiratory: no cough and no dyspnea Cardiovascular: no chest pain and no dyspnea on exertion Gastrointestinal: + abdominal pain, + nausea and + constip ation; no vomiting and no diarrhea/loose stools Genitourinary: no dysuria, no nocturia or no decreased urination Musculoskeletal: no back pain and no neck pain Integumentary: no acne, no lesions and no skin ulcer Neurologic: no gait abnormality, no headache(s) and no memory loss Psychiatric: no behavioral changes and no depression Hematologic / Lymphatic: no easy bleeding and no easy bruising Physical Exam Constitutional: WD/WN, vitals as above Eyes: PERRL, conjunctivae normal, anicteric sclerae ENMT: external ear and nose normal, oropharynx normal Neck: trachea midline, no thyromegaly Respiratory: normal respiratory effort, lungs clear to auscultation Cardiovascular: RRR, no murmur, no edema Gastrointestinal (Abdomen): Inspection/Auscultation: abdomen normal to inspection and + abdomen distended (Mild) Percussion/Palpation: + abdomen tender (Right lower quadrant) and abdomen soft; no guarding and no hernia Musculoskeletal: no cyanosis or clubbing, extremities motor strength 5/5 Skin: no rashes, warm and dry Neurologic: PERRL, EOMI, accommodation nl, no face palsy, no dysarthria Psychiatric: A+Ox3, euthymic affect Results & Data Vital Signs (Past 12 Hours) Vital Signs Temp Pulse Resp BP Pulse Ox O2 Del Method 09/17/24 12:33 60 19 95 09/17/24 12:27 139/64 09/17/24 12:27 60 16 96 09/17/24 12:12 71 20 97 09/17/24 11:30 61 21 99 09/17/24 11:30 147/78 H 09/17/24 11:12 65 23 99 09/17/24 10:59 67 09/17/24 10:57 67 31 H 100 09/17/24 10:57 97 Room Air 09/17/24 10:02 36.4 C L 67 18 151/79 H 99 PG Care Time/CCT Total # of Minutes Spent Total Time Spent with Patient: Total time spent is greater than 50% in coordination of care (as documented) at patient's floor/unit and/or counseling patient: Coding Level of Care Code 89859 OP VST NEW HI 60 MIN Diagnoses Right lower quadrant abdominal pain R10.31 Abdominal location: right lower quadrant Enteritis K52.9 Small bowel obstruction K56.609 (1) Abdominal pain Abdominal location: right lower quadrant Qualified Code(s): R10.31 - Right lower quadrant pain
--- NOTE | 2024-09-17 15:06 | Electrocardiogram Report ---
Test Reason : Blood Pressure : */* mmHG Vent. Rate : 62 BPM Atrial Rate : 62 BPM P-R Int : 254 ms QRS Dur : 154 ms QT Int : 468 ms P-R-T Axes : 86 -81 92 degrees QTcB Int : 475 ms Atrial-sensed ventricular-paced rhythm with prolonged AV conduction Abnormal ECG When compared with ECG of 30-Jan-2021 09:58, Premature ventricular complexes are no longer Present Vent. rate has decreased by 8 bpm Confirmed by James Thacker ([id number]) on 09/17/2024 3:06:06 PM Referred By: REFERRED SELF Confirmed By: James Thacker
[2024-09-17] MEDS ORDERED: MoRPHine SULFATE 2 MG/ML CARP IV PRN (16:15)
[2024-09-17] MEDS ORDERED: ACETAMINOPHEN 1,000 MG/100 ML VIAL IV PRN (16:15)
[2024-09-17 17:19] VITALS: PULSE 61; RESP 16
[2024-09-17] MEDS: SODIUM CHLORIDE 0.9% 1,000 ML IV SCH (18:08)
[2024-09-17 20:06] VITALS: O2SAT 96
[2024-09-17] MEDS: D5W AND 1/2NSS 1,000 ML IV SCH (21:18)
[2024-09-18 06:28] LABS: Basophils # (auto) 0.04 K/uL (0.00-0.20); Basophils % (auto) 0.8 %; Eosinophils # (auto) 0.05 K/uL (0.00-0.50); Eosinophils % (auto) 1.1 %; Hematocrit (blood only) 38.1 % (42.0-52.0); Hemoglobin 12.6 g/dl (14.0-18.0); Immature Granulocytes # (auto) 0.01 K/uL (0.01-0.20); Immature Granulocytes % (auto) 0.2 %; Lymphocytes # (auto) 1.19 K/uL (1.20-3.40); Lymphocytes % (auto) 25.2 %; Mean Corpuscular Hemoglobin 31.5 pg (25.0-34.0); Mean Corpuscular Hgb Conc 33.1 g/dL (32.0-36.0); Mean Corpuscular Volume 95.3 fL (80.0-100.0); Mean Platelet Volume 11.5 fL (9.4-12.4); Monocytes # (auto) 0.56 K/uL (0.11-0.59); Monocytes % (auto) 11.9 %; Neutrophils # (auto) 2.87 K/uL (1.40-6.50); Neutrophils % (auto) 60.8 %; Platelet Count 156 K/uL (130-400); RDW Standard Deviation 46.2 fL (36.4-46.3); White Blood Count 4.72 K/ul (4.8-10.8)
[2024-09-18 06:53] LABS: BUN Creatinine Ratio 23.4 (10-20); Calcium 8.8 mg/dl (8.6-10.3); Creatinine Clr Calc Pharmacy 83.8 ml/min; Potassium 3.7 mmol/L (3.5-5.1)
[2024-09-18 08:07] VITALS: BP 130/63; TEMP 97.7
[2024-09-18] MEDS ORDERED: ENOXAPARIN INJ 40 MG/0.4 ML SYR SQ SCH (09:00)
--- NOTE | 2024-09-18 09:42 | Surgery Progress Note ---
Date of Service September 18, 2024 Assessment & Plan (1) Small bowel obstruction: Plan: He is doing much better with return of bowel function Advance his diet as tolerated If he tolerates his diet he can likely be discharged later today versus tomorrow We will follow-up (2) Enteritis: Admission and Anticipated Discharge Date Admission Date: September 17, 2024 Subjective Patient seen and examined. Has been passing a lot of flatus in the morning. Denies any abdominal pain at this point. Vomiting. Review of Systems Constitutional: no fever and no chills Eyes: no blind spots, no dry eyes and no eye pain Ear, Nose, Mouth, Throat: no ear pain and no hearing loss Respiratory: no cough and no dyspnea Cardiovascular: no chest pain and no dyspnea on exertion Gastrointestinal: no abdominal pain, no nausea, no vomiting, no constipation and no diarrhea/loose stools Genitourinary: no dysuria, no nocturia or no decreased urination Musculoskeletal: no back pain and no neck pain Integumentary: no acne, no lesions and no skin ulcer Neurologic: no gait abnormality, no headache(s) and no memory loss Psychiatric: no behavioral changes and no depression Hematologic / Lymphatic: no easy bleeding and no easy bruising Physical Exam Constitutional: WD/WN, vitals as above Eyes: PERRL, conjunctivae normal, anicteric sclerae ENMT: external ear and nose normal, oropharynx normal Neck: trachea midline, no thyromegaly Respiratory: normal respiratory effort, lungs clear to auscultation Cardiovascular: RRR, no murmur, no edema Gastrointestinal (Abdomen): Inspection/Auscultation: abdomen normal to inspection and + abdomen distended (Mild) Percussion/Palpation: abdomen soft; abdomen nontender, no guarding and no hernia Musculoskeletal: no cyanosis or clubbing, extremities motor strength 5/5 Skin: no rashes, warm and dry Neurologic: PERRL, EOMI, accommodation nl, no face palsy, no dysarthria Psychiatric: A+Ox3, euthymic affect Results & Data Vital Signs (Past 12 Hours) Vital Signs Temp Pulse Resp BP Pulse Ox O2 Del Method 09/18/24 08:06 36.5 C 61 16 130/63 96 Room Air PG Care Time/CCT Total # of Minutes Spent Total Time Spent with Patient: Total time spent is greater than 50% in coordination of care (as documented) at patient's floor/unit and/or counseling patient: Coding Level of Care Code 63205 SUB INP/OBS CARE Diagnoses Small bowel obstruction K56.609 Enteritis K52.9
--- NOTE | 2024-09-18 13:08 | Discharge Summary ---
Discharge Summary Date of Service September 18, 2024 Principal Dx & Hospital Course #1 = Principal Diagnosis (1) Abdominal pain: 2 days of nausea, then --> Acute 10/10 onset abdominal pain /6 with loss of flatus/bowel movements. No prior history of abdominal surgeries or SBO. Does have a history of type I DM at risk for diabetic enteric neuropathy/gastroparesis CT A/P: wall thickening and hyperemia of small bowel loops, interloop fluid and ascites within the pelvis suspicious for enteritis but with several small bowel loops and sigmoid colon converging the central abdomen and a few mildly dilated fluid-filled small bowel loops from which a developing small bowel obstruction is within the differential. Sigmoid colonic involvement is noted without findings suggestive of volvulus. Patient was kept n.p.o. to undergo bowel rest. He was seen by the surgery team who recommended advancement of diet after return of bowel function. On day of discharge he tolerated clear liquid diet for breakfast and low fiber diet for nandini nch. Recommend to continue low fiber diet over the next week or so well bowel function is returning to normal. He has a previously scheduled GI appointment with Dr. Florez for Thursday 09/20 encouraged him to keep this appointment - CT images were pushed to the [facility] and report of CT scan given to patient to take to that appointment (2) Type 1 diabetes mellitus with long-term current use of insulin: Type I DM, generally well-controlled with BSG's between [id number] Uses a algorithm based continuous glucose monitor and pump. Typically around 24 units of insulin total daily dose. no issues with this while inpatient, continue home regimen. Plan dispo: Discharge to home today Discussed case with surgery, Dr. Norman. Family updated at bedside 09/18 Notes For Next Care Provider Medication Changes From Visit none Admission HPI Per Admitting Provider Marvin is a 74-year-old male with a past medical history of type 1 diabetes, celiac disease, prostate cancer, pancreatic insufficiency who presents to the ER for evaluation of right lower quadrant abdominal pain. CT shows wall thickening and hyperemia of small bowel loops, interloop fluid and ascites within the pelvis suspicious for enteritis but with several small bowel loops and sigmoid colon converging the central abdomen and a few mildly dilated fluid-filled small bowel loops from which a developing small bowel obstruction is within the differential. Sigmoid colonic involvement is noted without findings suggestive of volvulus. Leukocytosis is not present Creatinine is 0.3 Troponin normal Lipase normal UA noninfected appearing Patient is recommended for admission for possible developing SBO Past surgical history includes left knee arthroscopy, cardiac pacemaker placement. No history of appendectomy Per Pt at Bedside: Marvin reports all of a sudden this morning had sudden onset 'blowing through the top of the 1-10/10 scale, 10 doesn't describe it' pain that occured all of a sudden at 7:30am. Coul dnot have a bowel movement, was having abdominal spasms, and has had conitnued pain since then improved to tolerable after morphine but still a 6-7+. NO history of abdominal surgery. 2 d ay sof preceding intermittent nausea without diarrhea or vomiting Not passing any gas Has a history of IBS (not IBD) with cramping/bloating/constipation, but nothing this severe and current episode is completely different Has a history of celiac disease. Follows with Dr. Florez, and would like all of his information forwarded to [facility]. Had an appointment Friday. Surgical Hx: Prostate surgery January 2021, doing well since. MedHx: - T1DM. Uses an insulin pump. Switched from novolog to admelog. TDD ~24-28units. New pump does not bolus based on settings, runs on an algorithm via [employer]. Usually seems to deliver 3u breakfast, 3 lunch, ~4 per supper. Old pump was ~0.6u/hr, 0.3u/hr midnight-4hr similar with new pump. BSG usually runs 140s. Last A1C 7.6%. NO history of DKA. - IBS-C - Celiac - History of complete heart block post Tick Bite with AV katie failure. S/P dual chamber ventricular pacemaker. Due to be replaced in ~1-1.5years. 100% vent ricularly paced - History of prostatectomy. Does have some issues with some incontinence since. - ?pancreatic insuffiency Medical History: Reviewed Medications: Reviewed Surgical History: Reviewed Family history: Reviewed Allergies: Reviewed. NKMA. +celiac, +bee venom, +oat allergies Social History: Denies tobacco/ETOH Code Status: Full Code Discharge Exam General: NAD, VS as above, sitting up in bed, very pleasant Resp: normal respiratory effort, lungs clear to auscultation CV: RRR, no murmur, Abd: normal bowel sounds, non tender, soft Extremities: Moves all extremities, no edema Neuro: A&O x3, Skin: intact, no lesions noted Discharge Plan Discharge Items Patient Disposition: Home - Self-Care Reason For Visit: DEVELOPING SBO Discharge Diagnosis: Small bowel obstruction Activity: Resume your previous activity Weightbearing: Full weightbearing Non-emergency contact: Primary Care Provider Call non-emergency contact if: you have any medication questions, your symptoms worsen, your pain is not controlled, your pain is worsening and your temperature is above 101 Follow-up/Referrals: Ashley Lyman DO [Physician] - Diet: Low Fiber Addtl Attending Provider Instructions: Mr. Mcdonough, You were hospitalized after increasing abdominal pain - there were concerns for small bowel obstruction on CT scan. Thankfully this has resolved with bowel rest and hydration and you have tolerated a low fiber diet. Would recommend continuing this for the next week or so until your bowel function returns to normal. Keep for your follow up as scheduled with your GI provider. Keep PCP follow up scheduled for October. No changes to your home medications. Thanks for allowing us to participate in your care! Lauren Styles PA-C Pending Studies at Discharge: No Stand-Alone Forms: My [facility] travayl, Smoking Cessation Medications and DC Order Prescriptions: Continued (DME) pen needle, diabetic [BD Cecilia 2nd Gen Pen Needle] 32 gauge x 5/32" needle See Rx Instructions .Route Qty: 100 3RF Rx Instructions: use with each Novolog FlexPen injection if pump failure insulin aspart U-100 [Novolog FlexPen U-100 Insulin] 100 unit/mL (3 mL) insulin pen 50 unit subcut UD PRN (Reason: Hyperglycemia) Qty: 1 1RF Rx Instructions: in case of pump failure (DME) FreeStyle Test Strip See Dose Instructions .ROUTE .MEDSUPPLY Qty: 200 3RF Dose Instruction: As directed Rx Instructions: use 2 strips daily for calibration insulin lispro [Admelog U-100 Insulin lispro] 100 unit/mL solution 45 unit subcut DAILY Qty: 50 3RF Rx Instructions: via insulin pump latanoprost 0.005 % drops 1 drp OPB HS (DME) subcutaneous insulin pump Misc See Rx Instructions .Route Rx Instructions: As directed cholecalciferol (vitamin D3) 50 mcg (2,000 unit) capsule 4,000 unit PO HS (DME) insulin syringes (disposable) 1 mL syringe See Rx Instructions .Route Qty: 50 2RF Rx Instructions: use 1 with each insulin injection-when pump fails Creon 12,000-38,000 -60,000 unit capsule,delayed release(DR/EC) 1 cap PO BIDM Rx Instructions: TAKES WITH BREAKFAST AND LUNCH zinc acetate 25 mg (zinc) Capsule 25 mg PO HS Discharge Orders: Discharge Order (Routine); Ordered 09/18/24 Ordered By: Lauren Francois/Other Patient Handouts: Low-Fiber Diet Admission Data Admit Date/Time: 09/17/24 13:55 Attending Provider: Wily Chu Admit Provider: Shaun Thakkar Primary Care Provider: PCP,NO Other Providers: Shaun Thakkar; King Normna Other Interventions: Discharge Summary Assessment (RN) Last Done: 09/18/24 13:20 Hospital Stay Data Consultations 09/17/24 13:28 ED Decision to Admit Stat 09/17/24 14:02 Consult General Surgery Routine Diagnostic Imagining Performed Abdomen/Pelvis CT 09/17/24 11:29 CT OF THE ABDOMEN AND PELVIS WITH CONTRAST CLINICAL HISTORY: Right lower quadrant abdominal pain. COMPARISON STUDY: CT of the abdomen and pelvis February 17, 2021. TECHNIQUE: Following IV administration of 94 mL of Optiray, axial images of the abdomen and pelvis were obtained from the lung bases to the proximal femurs. Images were reviewed in the axial, sagittal, and coronal planes. IV contrast was administered without complication. Automated exposure control was utilized for the study. A dose lowering technique was utilized adhering to the principles of ALARA. CT DOSE: 448.42 mGy.cm FINDINGS: Pacer leads are partially imaged. Lung bases are unremarkable. No pneumatosis, free air or portal venous gas is present. The liver, spleen, adrenal glands, kidneys and pancreas are unremarkable. There is no biliary or pancreatic ductal dilatation. There is no hydronephrosis. No abdominal or pelvic lymphadenopathy is present. A small amount of fluid within the pelvis is presen t. There is mild wall thickening of a few small bowel loops. Associated interloop fluid is present. Several small bowel loops and the sigmoid colon converge within the upper pelvis on image [id number]. Several small bowel loops are mildly dilated and fluid-filled, measuring up to 3 cm. There is no significant colonic dilatation., There is a large amount of stool within the colon. No fluid collections are present. There is no lymphadenopathy. Major vasculature is patent. The bladder is mildly distended. There is no hydronephrosis. IMPRESSION: 1. Wall thickening and mucosal hyperemia of several small bowel loops. Associated interloop fluid and ascites within the pelvis. The findings may reflect an enteritis. However, several small bowel loops and the sigmoid colon converge within the central abdomen with mild swirling and a few mildly dilated fluid-filled small bowel loops. Therefore, a developing small bowel obstruction could appear similar and close clinical follow-up is recommended. Although this involves the sigmoid colon, the degree of dilatation does not suggest a volvulus at this time. Imaging follow-up is recommended. 2. Large amount of stool within the colon. 3. No pneumatosis, free air or portal venous gas. ACT 112: Negative or not required by law. Electronically signed by: Onur Howard M.D. 09/17/2024 12:37 PM Pending Results Patient Have Any Pending Studies at Discharge: No Discharge Instructions Given to Patient (Per Discharging Provider) Mr. Mcdonough, You were hospitalized after increasing abdominal pain - there were concerns for small bowel obstruction on CT scan. Thankfully this has resolved with bowel rest and hydration and you have tolerated a low fiber diet. Would recommend continuing this for the next week or so until your bowel function returns to normal. Keep for your follow up as scheduled with your GI provider. Keep PCP follow up scheduled for October. No changes to your home medications. Thanks for allowing us to participate in your care! Lauren Styles PA-C Total Time Total Time Spent Total Time Spent (In Minutes): Time spent day of discharge 35 minutes including direct patient care, medication reconciliation, documentation, review of labs and images, and coordination of care. Coding Level of Care Code 35535 INP/OBS DISCH >30 MIN Diagnoses Right lower quadrant abdominal pain R10.31 Abdominal location: right lower quadrant Type 1 diabetes mellitus with long-term current use of insulin E10.9
--- OUTSIDE RECORDS SUMMARY | 2024-09-19 11:23 | External Medical Summary | Summary of Care ---
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 Role Phone Ashley Lyman MD Primary Care Provider [phone] Reason for Visit * Auth/Cert Specialty Diagnoses / Procedures Referred By Evelio banegas Referred To Contact Diagnoses History of colonic polyps Adult celiac disease History of colonic polyps [Z86.0100] Adult celiac disease [K90.0] Procedures COLONOSCOPY, DIAGNOSTIC (RECTUM) EGD, FLEXIBLE, DIAGNOSTIC COLONOSCOPY FLEXIBLE PROXIMAL DIAGNOSTIC ESOPHAGOGASTRODUODENOSCOPY (EGD), FLEXIBLE, TRANSORAL, DIAGNOSTIC Shayan Florez MD [address] [address] Phone: tel: fax: [facility], Endoscopy Room [facility] [address] [place] [address] Phone: tel: Referral ID Status Reason Start Date Expiration Date Visits Re quested Visits Authorized [id number] Encounter Details Date Type Department Care Team (Latest Contact Info) Description 08/27/2024 9:20 AM EST - 08/27/2024 12:51 PM EST Hospital Encounter [facility], Endoscopy [facility] [address] [place] [address] Shayan Florez MD [address] [address] Various: [place],UGI Discharge Disposition: Home - Self Care Allergies Active Allergy Reactions Criticality Noted Date Comments Bee Venom Anaphylaxis High 10/15/2019 Gluten 08/17/2014 Celiac disease Latex Itching 09/19/2022 Sneezing, itchy watery eyes, nasal drainage Molds & Smuts Allergy test positive 10/15/2019 Pollen Allergy test positive 10/15/2019 documented as of this encounter (statuses as of 08/28/2024) Medications NOVOLOG 100 UNIT/ML SUBQ SOLN use 50 units daily via pump Active VITAMIN D3 3000 UNITS PO TABS 1000 units 2 capsules daily Active econazole nitrate (SPECTAZOLE) 1 % cream Apply to affected area twice daily as directed 3 04/16/20 16 Active FREESTYLE TEST STRP TEST 6 TIMES DAILY FOR USE WITH INSULIN PUMP TYPE 1 DIABETES MELLITUS (E10.9) 3 05/09/20 16 Active latanoprost (XALATAN) 0.005 % ophthalmic solution At bedtime 3 04/13/20 18 Active Zinc 25 MG Oral Tablet Take by mouth . Acti ve Probiotic Acidophilus BioBeads Oral Capsule Take by mouth 1 Capsule in the morning. Active EPINEPHrine 0.3 MG/0.3ML Injection Solution Auto-injector (Autoinjector) Inject 0.3 mg into a large muscle once. Active Admelog 100 UNIT/ML Injection Solution INJECT 45 UNIT (0.45 ML) SUBCUTANEOUSLY DAILY VIA INSULIN PUMP 04/26/20 24 Active Cholestyramine 4 GM Oral Packet (Questran) Take 1 Packet by mouth in the morning and 1 Packet before bedtime. mixed with liquid.. 60 Packet 1 05/13/20 24 Active Additional Information Patient not taking.Reported on 08/24/2024 Pancrelipase (Auf-Gxoe-Ghkb) 51507-[address] UNIT Oral Capsule Delayed Release Particles (Creon 53238) Take 1 tab before meals. 90 Capsule 08/06/20 24 Active documented as of this encounter (statuses as of 08/28/2024) Active Problems Problem Noted Date Diagnosed Date Celiac disease 02/28/2015 Type 2 diabetes mellitus wit h hemoglobin A1c goal of less than 7.0% 08/10/2009 Overview (02/06/2016): Per Diabetes Taxonomy. ICD-10 update of inactive term Allergic rhinitis documented as of this encounter (statuses as of 08/28/2024) Resolved Problems Problem Noted Date Diagnosed Date Resolved Date Type 2 diabetes mellitus wit h hemoglobin A1c goal of less than 7.0% 08/10/2009 Overview (02/06/2016): Per Diabetes Taxonomy. ICD-10 update of inactive term documented as of this encounter (statuses as of 08/28/2024) Immunizations Name Administration Dates Next Due COVID-19 mRNA, LNP-s, No Pre serve, 2-Dose Series (Pfizer) 12/19/2020,11/21/2020 Pneumococcal Polysaccharide PPV23 (Pneumovax) Seasonal Influenza, High Dos e, Trivalent, PF, IM (Fluzone HD) 07/31/2024 Seasonal Influenza, Quadrivalent Hd, 65+ Yrs documented as of this encounter Social History Tobacco Use Types Packs/Day Years Used Date Smoking Tobacco: Never Smokeless Tobacco: Never Alcohol Use Standard Drinks/Week Comments Yes 0 (1 standard drink = 0.6 oz pure alcohol) 2-3 drinks a day (gluten free beer) Utilities Answer Date Recorded Do you have trouble paying y our heating, water, or electric bill? (Adult - for ages 18 years and over) Not on file 03/30/2024 Is your family able to pay t he heat, water, or electric bill? (Household - for ages 0-17 years) Not on file 03/30/2024 Does your family have access to good internet? (Household - for ages 0-17 years) Not on file 03/30/2024 Social Connections Answer Date Recorded How often do you feel lonely or isolated from those around you? (Adult - for ages 18 years and over) Not on file 03/30/2024 Sex and Gender Information Value Date Recorded Sex Assigned at Not on file Legal Sex Male 5:24 AM EST Gender Identity Not on file Sexual Orientation Not on file documented as of this encounter Last Filed Vital Signs Vital Sign Reading Time Taken Comments Blood Pressure 106/73 08/27/2024 11:45 AM EST Pulse 71 08/27/2024 11:45 AM EST Temperature 36.3 C (97.4 F) 08/27/2024 11:[address] Respiratory Rate 16 08/27/2024 11:45 AM EST Oxygen Saturation 100% 08/27/2024 11:45 AM EST Inhaled Oxygen Concentration - - Weight 59.4 kg (131 lb) 08/27/2024 9:54 AM EST Height 177.8 cm (5' 10") 08/27/2024 9:54 AM EST Body Mass Index 18.8 08/27/2024 9:54 AM EST documented in this encounter H&P Notes * Shayan Florez MD - 08/27/2024 10:09 AM EST Endoscopy Pre-Procedure Assessment Name: Marvin Mcdonough Date: 08/27/2024 Time: 10:10 AM Procedure(s): Colonoscopy; with Indication(s) of chronic diarrhea Upper GI Endoscopy; with Indication(s) of celiac sprue Endoscopy Pre-Procedure Assessment: Prior to the procedure, the patient is identified. The patient's history, medications and allergieshave been reviewed. The patient is competent. The risks and benefits of the proposed procedure and the planned sedation have been discussed with the patient. All questions have been answered and informed consent for the procedure has been obtained. Prior to Admission medications Medication Sig Last Dose Discont. Pancrelipase (Ydm-Ofky-Dsys) 02586-[address] UNIT Oral Capsule Delayed Release Particles (Creon 40780) Take 1 tab before meals. Past Week Admelog 100 UNIT/ML Injection Solution INJECT 45 UNIT (0.45 ML) SUBCUTANEOUSLY DAILY VIA INSULIN PUMP 08/24/2024 Zinc 25 MG Oral Tablet Take by mouth . 08/26/2024 Evening latanoprost (XALATAN) 0.005 % ophthalmic solution At bedtime 08/23/2024 VITAMIN D3 3000 UNITS PO TABS 1000 units 2 capsules daily 08/26/2024 Evening Lactulose 20 GM/30ML Oral Solution (Constulose) Take 15 mL by mouth once for 1 dose. Ciprofloxacin HCl 500 MG Oral Tablet (Cipro) Take 1 Tablet by mouth in the morning and 1 Tablet before bedtime. Do all this for 7 days. Cholestyramine 4 GM Oral Packet (Questran) Take 1 Packet by mouth in the morning and 1 Packet before bedtime. mixed with liquid.. Patient not taking: Reported on 08/24/2024 Not Taking EPINEPHrine 0.3 MG/0.3ML Injection Solution Auto-injector (Autoinjector) Inject 0.3 mg into a largemuscle once. Probiotic Acidophilus BioBeads Oral Capsule Take by mouth 1 Capsule in the morning. Patient not taking: Reported on 08/24/2024 Not Taking econazole nitrate (SPECTAZOLE) 1 % cream Apply to affected area twice daily as directed Patient not taking: Reported on 09/19/2022 FREESTYLE TEST STRP TEST 6 TIMES DAILY FOR USE WITH INSULIN PUMP TYPE 1 DIABETES MELLITUS (E10.9) NOVOLOG 100 UNIT/ML SUBQ SOLN use 50 units daily via pump Patient not taking: Reported on 05/25/2024 Review of patient's allergies indicates: Allergen Reactions Bee Venom Anaphylaxis Gluten Celiac disease Latex Itching Sneezing, itchy watery eyes, nasal drainage Molds & Smuts Allergy test positive Pollen Allergy test positive BP 145/61 | Pulse 59 | Temp 36.3 C (97.4 F) (Tympanic) | Resp 16 | Ht 1.778 m (5' 10") | Wt 59.4 kg (131 lb) | SpO2 100% | BMI 18.80 kg/m | BSA 1.71 m Physical Exam: Mental Status Examination: alert and oriented. Airway Examination: normal oropharyngeal airway and neck mobility. Respiratory Examination: clear to auscultation. CV Examination: normal. ASA Grade: III - A patient with severe systemic disease. Abdomen: negative This patient has undergone a preprocedural evaluation. A determination has been made to proceed with the planned procedure under [facility] procedural guidelines and the CMS Non-Emergent, Elective Medical Services and Treatment Recommendations (published on 01-18-20). The community and hospital prevalence of COVID-19 has been discussed as well as this patient's specific risks associated with SARS-CoV-19 infection. Based upon the clinical acuity and patient-specific care considerations, this procedure is deemed a Tier II - Intermediate acuity treatment or service with either progression or the threat of progressive disease related to the delay in treatment. Not providing the service has the potential for increasing morbidity or mortality. After reviewing the risks and benefits, the patient is deemed in satisfactory condition to undergo the procedure. The anesthesia plan is to use general anesthesia. Shayan Florez MD 08/27/2024 documented in this encounter Procedure Notes * Ashley Lyman MD - 08/27/2024 10:28 AM ESTAssociated Order(s): UPPER GI ENDOSCOPY [facility] Patient Name: Marvin Mcdonough Procedure Date: 08/27/2024 10:28 AM Date of : 1950 Admit Type: Outpatient Note Status: Finalized Date of : 1950 Admit Type: Outpatient Age: 74 Room: Endo 3 Gender: Male Note Status: Finalized Procedure: Upper GI endoscopy Indications: Follow-up of celiac disease Providers: Shayan Florez MD (Doctor) Referring MD: Ashley Lyman DO (Referring MD) Medicines: See the Anesthesia note for documentation of the administered medications Complications: No immediate complications. Procedure: Pre-Anesthesia Assessment: - Prior to the procedure, a History and Physical was performed, and patient medication allergies have been reviewed. The patient's tolerance of previous anesthesia has been reviewed. - Respiratory Examination: clear to auscultation. - CV Examination: normal. - The risks and benefits of the procedure and the sedation options and risks were discussed with the patient. All questions were answered and informed consent was obtained. - Patient identification and proposed procedure were verified prior to the procedure by the physician, the nurse and the photo producer. The procedure was verified in the pre-procedure area in the procedure room. - The medication list for this patient has been reviewed prior to the procedure and has been determined that the patient may proceed with the planned study. Any medication changes made as a result of the findings of this procedure have been discussed with the patient and/or product sales representative at the time of discharge from the facility. After obtaining informed consent, the endoscope was passed under direct vision. All instruments were visually inspected immediately before and after removal from the patient to ensure they are fully intact. Throughout the procedure, the patient's blood pressure, pulse, and oxygen saturations were monitored continuously. The PCF-H190DL Colonoscope ([id number]) was introduced through the mouth, and advanced to the proximal jejunum. The upper GI endoscopy was accomplished without difficulty. The patient tolerated the procedure well. Findings & Specimens: LA Grade A (one or more mucosal breaks less than 5 mm, not extending between tops of 2 mucosal folds) esophagitis was found. The exam of the esophagus was otherwise normal. The gastroesophageal flap valve was visualized endoscopically and classified as Hill Grade I (prominent fold, tight to endoscope). The entire examined stomach was normal. Biopsies were taken with a cold forceps for histology. There was mild fissuring at the posterior duodenal bulb. Otherwise, the examined duodenum was normal. Biopsies were taken with a cold forceps for histology. The examined jejunum was normal. Ampulla is normal. Recommendation: - Discharge patient to home. Can consider VCE for further evaluation of celiac sprue/diarrhea. Shayan Florez MD 08/27/2024 11:43:41 AM This report has been signed electronically. * Ashley Lyman MD - 08/27/2024 10:26 AM ESTAssociated Order(s): COLONOSCOPY [facility] Patient Name: Marvin Mcdonough Procedure Date: 08/27/2024 10:26 AM Date of : 1950 Admit Type: Outpatient Note Status: Finalized Date of : 1950 Admit Type: Outpatient Age: 74 Room: [facility] 3 Gender: Male Note Status: Finalized Procedure: Colonoscopy Indications: Chronic diarrhea Providers: Shayan Florez MD (Doctor) Referring MD: Ashley Lyman DO (Referring MD) Medicines: See the Anesthesia note for documentation of the administered medications Complications: No immediate complications. Procedure: Pre-Anesthesia Assessment: - ASA Grade Assessment: III - A patient with severe systemic disease. - Prior to the procedure, a History and Physical was performed, and patient medication allergies have been reviewed. The patient's tolerance of previous anesthesia has been reviewed. - Respiratory Examination: clear to auscultation. - CV Examination: normal. - The risks and benefits of the procedure and the sedation options and risks were discussed with the patient. All questions were answered and informed consent was obtained. - Patient identification and proposed procedure were verified prior to the procedure by the physician, the nurse and the photo producer. The procedure was verified in the pre-procedure area in the procedure room. - The medication list for this patient has been reviewed prior to the procedure and has been determined that the patient may proceed with the planned study. Any medication changes made as a result of the findings of this procedure have been discussed with the patient and/or product sales representative at the time of discharge from the facility. After I obtained informed consent, the scope was passed under direct vision. All instruments were visually inspected immediately before and after removal from the patient to ensure they are fully intact. Throughout the procedure, the patient's blood pressure, pulse, and oxygen saturations were monitored continuously. The PCF-H190DL Colonoscope ([id number]) was introduced through the anus and advanced to 15 cm into the ileum. The colonoscopy was somewhat difficult due to a tortuous colon and prep quality ; Cecal intubation time was 9-10 mins . The quality of the bowel preparation was poor. Prep was not consider sufficient for colon cancer screening, but was considered sufficient to evaluate for colitis. More than 1 liter of thick liquid opaque stool was suctioned from the colon. Findings & Specimens: The perianal and digital rectal examinations were normal. Hemorrhoids were found during retroflexion. The exam was otherwise grossly normal, but was markedly limited by prep quality. Random biopsies taken from throughout the colon. There was moderate oozing post biopsy in the tranvserse colon that resolved with 1 clip. The ileum was normal. Recommendation: - Discharge patient to home. - Findings on exam today - tortuous colon, large volume of stool in colon after colonoscopy prep - suggests that pt may have overflow diarrhea. Shayan Florez MD 08/27/2024 11:33:49 AM This report has been signed electronically. documented in this encounter Nursing Notes * Carolyne Barth RN - 08/27/2024 12:40 PM EST Patient is alert, pain free, passing flatus and tolerating po fluids prior to discharge. Patient has been visited by Dr. Florez. Patient has received and demonstrates understanding of discharge instructions. Patient is transported via w/c to private auto accompanied by endo staff. * Carolyne Barth RN - 08/27/2024 11:50 AM EST D/C instructions given to pt and , verbalized understanding. * Carolyne Barth RN - 08/27/2024 11:36 AM EST Pt sitting up tolerating PO fluids, no C/O. * Cameron Varghese RN - 08/27/2024 11:28 AM EST Specimen(s) and location(s) verified with physician post procedure 11:28 AM Cameron Varghese RN Mid abdominal pressure given per Dr. Florez to assist with scope advancement. Pt tolerated well See anesthesia record for medication administered during procedure. Cameron Varghese RN Pre cleaning of scope at the bedside started by fingernail technician. * Carolyne Barth RN - 08/27/2024 11:26 AM EST Received pt, sleeping, VSS, CM shows NSR. Report given by CORE DIPPER. * Deni Alexander RN - 08/27/2024 9:36 AM EST The following pt discharge instructions reviewed with pt prior to prodedure: No driving today. No alcohol today. No signing of legal documents. Rest as much as possible today and can return to normal activities tomorrow. No operating any heavy equipment today. Diet as tolerated. Pt verbalized understanding. documented in this encounter Plan of Treatment Upcoming Encounters Date Type Department Care Team (Late st Contact Info) Description 09/20/2024 4:00 PM EST Office Visit Gastroenterology, [facility] [address] [facility] [address] [place] [address] Shayan Florez MD [address] [facility] [address] [place] [address] 12/08/2024 2:00 PM EST [facility], [facility] [address] [place] [address] Shayan Florez MD [address] [facility] [place] [address] Pending Results Name Type Priority Associated Diagnoses Date /Time SURGICAL PATHOLOGY Pathology Routine History of colonic polyps Adult celiac disease 08/27/2024 11:26 AM EST Scheduled Orders Name Type Priority Associated Diagnoses Order Schedule GLUCOSE METER, POINT OF CARE (COMMUNICATION ORDER) Point of Care Testing Routine Perform Now for 1 Occurrences starting 08/27/2024 until 08/27/2024 SURGICAL PATHOLOGY Pathology Routine History of colonic polyps Adult celiac disease Release Upon Ordering for 1 Occurrences starting 08/27/2024, 1 completed Health Maintenance Due Date Last Done Comments Depression Screening 1960 Albumin/Creatinine Ratio 1966 Diabetic Eye Exam 1966 Diabetic Foot Exam 1966 Hepatitis C Screening 1966 DTap/Tdap Vaccines (1 - Tdap) 1967 Zoster Vaccines (1 of 2) 1998 HbA1c 02/14/2015 08/17/2014 COVID-19 Vaccine ( season) 2024 07/29/2023, 08/09/2022, 02/17/2022, Additional history exists GFR 05/14/2025 05/14/2024, 04/12, 10/16/2020 Colonoscopy 08/27/2027 08/27/2024, 09/12, 09/23/2022, Additional history exists Pneumococcal Vaccine: 65+ Years Completed 01/28/2017, 10/25/2015, 11/08/2010 Influenza Vaccine (FLU shot) Completed , 07/25/2020, 07/20/2019 HPV (Gardasil) Vaccine Aged Out No lo nger eligible based on patient's age to complete this topic Hepatitis B Vaccine Aged Out No longe r eligible based on patient's age to complete this topic MENINGOCOCCAL (MENACTRA/MENVEO) Aged Out No longer eligible based on patient's age to complete this topic documented as of this encounter Medical Devices Implanted Type Area Slate Cutter Operator Device Identifier Shelf Expiration Date Model / Serial / Lot Capsurefix Novus Pacing Lead-02/11/2017 Rv Lead Implanted:11/2016 (Quantity not on file) Lead Right: Heart [employer] : CARDIAC SURGERY 5076-52 / [id number] / Capsurefix Novus Pacing Lead-02/11/2017 Atrial Lead Implanted:11/2016 (Quantity not on file) Lead Heart [employer] : CARDIAC SURGERY 5076-45 / [id number] / Advisa Dr Gunn-02/11/2017 Implanted:11/2016 (Quantity not on file) Pacemaker Heart [employer] : CARDIAC SURGERY [id number] / [id number] / Duraclip 16mm Xlg Repostn - [id number] Implanted:Qty: 1 on 08/27/2024 by Shayan Florez MD at ENDOSCOPY [facility] 01/29/2025 [id number] / / [id number] documented as of this encounter Procedures Procedure Name Priority Date/Time Associated Diagnosis Comments UPPER GI ENDOSCOPY 08/27/2024 10 :28 AM EST COLONOSCOPY 08/27/2024 10:26 AM EST GLUCOSE METER, POINT OF CARE [place] 08/27/2024 9:50 AM EST documented in this encounter Results * UPPER GI ENDOSCOPY (08/27/2024 10:28 AM EST) 08/27/2024 10:2 8 AM EST Narrative Procedure Note Ashley Lyman MD - 08/27/2024 10:28 AM EST [facility] Patient Name: Marvin Mcdonough Procedure Date: 08/27/2024 10:28 AM Date of : 1950 Admit Type: Outpatient Note Status:Finalized Date of : 1950 Admit Type: Outpatient Age: 74 Room: Endo 3 Gender: Male Note Status: Finalized Procedure: Upper GI endoscopy Indications: Follow-up of celiac disease Providers: Shayan Florez MD (Doctor) Referring MD: Ashley Lyman DO (Referring MD) Medicines: See the Anesthesia note for documentation of theadministered medications Complications: No immediate complications. Procedure: Pre-Anesthesia Assessment: - Prior to the procedure, a History and Physicalwas performed, and patient medication allergies have been reviewed. Thepatient's tolerance of previous anesthesia has been reviewed. - Respiratory Examination: clear to auscultation. - CV Examination: normal. - The risks and benefits of the procedure and thesedation options and risks were discussed with the patient. All questions wereanswered and informed consent was obtained. - Patient identification and proposed procedurewere verified prior to the procedure by the physician, the nurse and the photo producer.The procedure was verified in the pre-procedure area in the procedure room. - The medication list for this patient has beenreviewed prior to the procedure and has been determined that the patient may proceedwith the planned study. Any medication changes made as a result of the findingsof this procedure have been discussed with the patient and/or product sales representative atthe time of discharge from the facility. After obtaining informed consent, the endoscope waspassed under direct vision. All instruments were visually inspected immediatelybefore and after removal from the patient to ensure they are fully intact. Throughout the procedure, the patient's bloodpressure, pulse, and oxygen saturations were monitored continuously. The [id number] ([id number]) was introduced through the mouth, and advanced to the proximaljejunum. The upper GI endoscopy was accomplished without difficulty. The patienttolerated the procedure well. Findings & Specimens: LA Grade A (one or more mucosal breaks less than 5 mm, not extendingbetween tops of 2 mucosal folds) esophagitis was found. The exam of the esophagus was otherwise normal. The gastroesophageal flap valve was visualized endoscopically andclassified as Hill Grade I (prominent fold, tight to endoscope). The entire examined stomach was normal. Biopsies were taken with acold forceps for histology. There was mild fissuring at the posterior duodenal bulb. Otherwise,the examined duodenum was normal. Biopsies were taken with a cold forceps for histology. The examined jejunum was normal. Ampulla is normal. Recommendation: - Discharge patient to home. Can consider VCE forfurther evaluation of celiac sprue/diarrhea. Shayan Florez MD 08/27/2024 11:43:41 AM This report has been signed electronically. Ashley Lyman MD [facility] Final Result * COLONOSCOPY (08/27/2024 10:26 AM EST) 08/27/2024 10:2 6 AM EST Narrative Procedure Note Ashley Lyman MD - 08/27/2024 10:26 AM EST [facility] Patient Name: Marvin Mcdonough Procedure Date: 08/27/2024 10:26 AM Date of : 1950 Admit Type: Outpatient Note Status:Finalized Date of : 1950 Admit Type: Outpatient Age: 74 Room: [facility] 3 Gender: Male Note Status: Finalized Procedure: Colonoscopy Indications: Chronic diarrhea Providers: Shayan Florez MD (Doctor) Referring MD: Ashley Lyman DO (Referring MD) Medicines: See the Anesthesia note for documentation of theadministered medications Complications: No immediate complications. Procedure: Pre-Anesthesia Assessment: - ASA Grade Assessment: III - A patient with severesystemic disease. - Prior to the procedure, a History and Physicalwas performed, and patient medication allergies have been reviewed. Thepatient's tolerance of previous anesthesia has been reviewed. - Respiratory Examination: clear to auscultation. - CV Examination: normal. - The risks and benefits of the procedure and thesedation options and risks were discussed with the patient. All questions wereanswered and informed consent was obtained. - Patient identification and proposed procedurewere verified prior to the procedure by the physician, the nurse and the photo producer.The procedure was verified in the pre-procedure area in the procedure room. - The medication list for this patient has beenreviewed prior to the procedure and has been determined that the patient may proceedwith the planned study. Any medication changes made as a result of the findingsof this procedure have been discussed with the patient and/or product sales representative atthe time of discharge from the facility. After I obtained informed consent, the scope waspassed under direct vision. All instruments were visually inspected immediatelybefore and after removal from the patient to ensure they are fully intact. Throughout the procedure, the patient's bloodpressure, pulse, and oxygen saturations were monitored continuously. The [id number] ([id number]) was introduced through the anus and advanced to 15 cm into theileum. The colonoscopy was somewhat difficult due to a tortuous colon and prep quality; Cecal intubation time was 9- 10 mins . The quality of the bowel preparation waspoor. Prep was not consider sufficient for colon cancer screening, but wasconsidered sufficient to evaluate for colitis. More than 1 liter of thick liquid opaquestool was suctioned from the colon. Findings & Specimens: The perianal and digital rectal examinations were normal. Hemorrhoids were found during retroflexion. The exam was otherwise grossly normal, but was markedly limited byprep quality. Random biopsies taken from throughout the colon. There was moderateoozing post biopsy in the tranvserse colon that resolved with 1 clip. The ileum was normal. Recommendation: - Discharge patient to home. - Findings on exam today - tortuous colon, largevolume of stool in colon after colonoscopy prep - suggests that pt may haveoverflow diarrhea. Shayan Florez MD 08/27/2024 11:33:49 AM This report has been signed electronically. Ashley Lyman MD GASTRO LOWER Final Result * (ABNORMAL) GLUCOSE METER, POINT OF CARE (08/27/2024 9:50 AM EST) GLUCOSE - POCT 176(H) 70 - 120 mg/dL 08/27/2024 10:02 AM EST [facility]-00 Blood Whole blood specimen / Unknown 08/27/2024 9:50 AM EST 08/27/2024 10:02 AM EST Shayan Florez MD LAB POINT OF CA RE TEST DOCKED DEVICE UNSOLICITED RESULTS Final Result [facility]- [address] [facility] [place] [address] documented in this encounter Visit Diagnoses Diagnosis History of colonic polyps Personal history of colonic polyps Adult celiac disease Celiac disease documented in this encounter Administered Medications Inactive Administered Medications - up to 3 most recent administrations Medication Order MAR Action Action Date Dose Rate Site Acetaminophen (Tylenol) tab 650 mg 650 mg, Oral, PRN Pain, Mild, Starting on Fri08/27/24 at 1137, Until Fri08/27/24 at 1651, For 1 dose, Maximum of 4 grams (4000 mg) per day., Post-op Isolyte-S pH 7.4 infusion Intravenous, at 100 mL/hr, Plasma-LYTE 148, isolyte-S, and isolyte-S pH 7.4 are considered equivalent - including for MAR barcode scanning., CONTINUOUS, Starting on Fri08/27/24 at 1030, Until Fri08/27/24 at 1651, Pre-Op Continue from Pre-Op 08/27/2024 10:15 AM EST 100 mL/hr New Bag 08/27/2024 9:55 AM EST 100 mL/hr documented in this encounter Active and Recently Administered Medications Times are shown in EST. Continuous Medication Order 08/25/2024 08/26/2024 08/27/2024 Isolyte-S pH 7.4 infusion Intravenous, at 100 mL/hr, Plasma-LYTE 148, isolyte-S, and isolyte-S pH 7.4 are considered equivalent - including for MAR barcode scanning., CONTINUOUS, Starting on Fri08/27/24 at 1030, Until Fri08/27/24 at 1651, Pre-Op 0955 (New Bag - Prov ider: Deni Alexander RN)1015 (Continue from Pre-Op - Provider: Candy Alatorre CRNA)1124 (Anes Intra-Op Fluid - Provider: Candy Alatorre CRNA) PRN Medication Order 08/25/2024 08/26/2024 08/27/2024 Acetaminophen (Tylenol) tab 650 mg 650 mg, Oral, PRN Pain, Mild, Starting on Fri08/27/24 at 1137, Until Fri08/27/24 at 1651, For 1 dose, Maximum of 4 grams (4000 mg) per day., Post-op documented in this encounter Care Teams Horizontal Boring Mill Operator Relationship Specialty Start Date End Date Ashley Lyman MD [address] [place] [address] PCP - General Family Medicine 08/27/24 documented as of this encounter
--- OUTSIDE RECORDS SUMMARY | 2024-09-19 11:23 | External Medical Summary | Summary of Care ---
Author Name Unknown Organization [facility] [address] [place] [address] Phone [phone] Care Team Providers Care Application Administrator Name Role Phone Edison Godinez MD Primary Care Provider [phone] Encounter Details Date Type Department Care Team (Latest Contact Info) Description 08/26/2024 10:00 AM EST Hospital Encounter Radiology, [facility] [address] [place] [address] Arrived Discharge Disposition: Home - Self Care Allergies Active Allergy Reactions Criticality Noted Date Comments Bee Venom Anaphylaxis High 10/15/2019 Gluten 08/17/2014 Celiac disease Latex Itching 09/19/2022 Sneezing, itchy watery eyes, nasal drainage Molds & Smuts Allergy test positive 10/15/2019 Pollen Allergy test positive 10/15/2019 documented as of this encounter (statuses as of 08/27/2024) Medications NOVOLOG 100 UNIT/ML SUBQ SOLN use [...] Information Patient not taking.Reported on 08/24/2024 Pancrelipase (Zyy-Lwtq-Rync) 50676-67367 UNIT Oral Capsule Delayed Release Particles (Creon 47263) Take 1 tab before meals. 90 Capsule 08/06/20 24 Active documented as of this encounter (statuses as of 08/27/2024) Active Problems Problem Noted Date Diagnosed Date Celiac disease 02/28/2015 Type 2 diabetes mellitus wit h hemoglobin A1c goal of less than 7.0% 08/10/2009 Overview (02/06/2016): Per Diabetes Taxonomy. ICD-10 update of inactive term Allergic rhinitis documented as of this encounter (statuses as of 08/27/2024) Resolved Problems Problem Noted Date Diagnosed Date Resolved Date Type 2 diabetes mellitus wit h hemoglobin A1c goal of less than 7.0% 08/10/2009 Overview (02/06/2016): Per Diabetes Taxonomy. ICD-10 update of inactive term documented as of this encounter (statuses as of 08/27/2024) Immunizations Name Administration Dates Next Due COVID-19 [...] on file documented as of this encounter Plan of Treatment Upcoming Encounters Date Type Department Care Team (Late st Contact Info) Description 09/20/2024 4:00 PM EST Office Visit Gastroenterology, [facility] [address] [address] Shayan Florez MD [address] [place] [address] 12/08/2024 2:00 PM EST Office Visit Gastroenterology, [facility] [address] [address] Shayan Florez MD [address] [address] Scheduled Procedures Name Priority Associated Diagnoses Date/Ti me COLONOSCOPY FLEXIBLE PROXIMA L DIAGNOSTIC Recall History of colonic polyps Adult celiac disease 08/27/2024 10:27 AM EST ESOPHAGOGASTRODUODENOSCOPY ( EGD), FLEXIBLE, TRANSORAL, DIAGNOSTIC Recall History of colonic polyps Adult celiac disease 08/27/2024 10:27 AM EST Health Maintenance Due Date Last Done Comments [...] this encounter Medical Devices Implanted Type Area [employer] Clerk Device Identifier Shelf Expiration Date Model / Serial / Lot Capsurefix Novus Pacing Lead-02/11/2017 Rv Lead Implanted:11/2016 (Quantity not on file) Lead Right: Heart [employer] : CARDIAC SURGERY 5076-52 / [id number] / Capsurefix Novus Pacing Lead-02/11/2017 Atrial Lead Implanted:11/2016 (Quantity not on file) Lead Heart [employer] : CARDIAC SURGERY 5076-45 / [id number] / Advisa Dr Gunn-02/11/2017 Implanted:11/2016 (Quantity not on file) Pacemaker Heart [employer] : CARDIAC SURGERY [id number] / [id number] / documented as of this encounter Procedures Procedure Name Priority Date/Time Associated Diagnosis Comments XR CHEST 2 VIEWS STAT 08/26/2024 10:0 9 AM EST Pancreatic insufficiency MRI safe cardiac pacemaker in situ documented in this encounter Results * XR CHEST 2 VIEWS (08/26/2024 10:09 AM EST) Anatomical Region Laterality Modality Chest Digital Radiogra phy 08/26/2024 11:2 5 AM EST Impressions 08/26/2024 11:22 AM EST IMPRESSION 1. Pacer wires appear to be intact. Narrative 08/26/2024 11:22 AM EST EXAM XR CHEST 2 VIEWS-08/26/2024 10:09 am HISTORY Pre MRI (pacemaker) COMPARISON None available TECHNIQUE PA and lateral films of the chest were obtained FINDINGS Cardiac silhouette is within normal limits for size. Lungs are well aerated. Pacer generator in wires appear to be intact. There are no consolidations or effusions. Procedure Note Johanne Martinez MD - 08/26/2024 EXAM XR CHEST 2 VIEWS-08/26/2024 10:09 am HISTORY Pre MRI (pacemaker) COMPARISON None available TECHNIQUE PA and lateral films of the chest were obtained FINDINGS Cardiac silhouette is within normal limits for size. Lungs are wellaerated. Pacer generator in wires appear to be intact. There are noconsolidations or effusions. IMPRESSION IMPRESSION 1. Pacer wires appear to be intact. Shayan Florez MD RADIOLOGY (RAD GENERAL) Final Result documented in this encounter Care Teams Application Administrator Relationship Specialty Start Date End Date Edison Godinez MD [facility] [place] [address] PCP - General Pulmonary Diseases 09/19/22 08/26/24 documented as of this encounter
--- OUTSIDE RECORDS SUMMARY | 2024-09-19 11:24 | External Medical Summary | Summary of Care ---
Author Name Unknown Organization [facility] Address [address] [place] [address] Phone [phone] Care Team Providers Care Landscape Laborer Name Role Phone Edison Godinez MD Primary Care Provider [phone] Reason for Visit * Reason Onset Date Comments Appointment 08/12/2024 Encounter Details Date Type Department Care Team (Late st Contact Info) Description 08/12/2024 Telephone ENDO [facility], Endoscopy Suite [facility] [address] [place] [address] Shayan Florez MD [address] [place] [address] Appointment Allergies Active Allergy Reactions Criticality Noted Date Comments Bee Venom Anaphylaxis High 10/15/2019 Gluten 08/17/2014 Celiac disease Latex Itching 09/19/2022 Sneezing, itchy watery eyes, nasal drainage Molds & Smuts Allergy test positive 10/15/2019 Pollen Allergy test positive 10/15/2019 documented as of this encounter (statuses as of 08/12/2024) Medications Medication Sig Dispensed Refills Start Date End Date Status NOVOLOG 100 UNIT/ML SUBQ SOLN use 50 units daily via pump Active VITAMIN D3 3000 UNITS PO TABS 1000 units 2 capsules daily Active econazole nitrate (SPECTAZOLE) 1 % cream Apply to affected area twice daily as directed 3 04/16/2016 Active FREESTYLE TEST STRP TEST 6 TIMES DAILY FOR USE WITH INSULIN PUMP TYPE 1 DIABETES MELLITUS (E10.9) 3 05/09/2016 Active latanoprost (XALATAN) 0.005 % ophthalmic solution At bedtime 3 04/13/2018 Active Zinc 25 MG Oral Tablet Take by mouth . Active Probiotic Acidophilus BioBeads Oral Capsule Take by mouth 1 Capsule in the morning. Active EPINEPHrine 0.3 MG/0.3ML Injection Solution Auto-injector (Autoinjector) Inject 0.3 mg into a large muscle once. Active Admelog 100 UNIT/ML Injection Solution INJECT 45 UNIT (0.45 ML) SUBCUTANEOUSLY DAILY VIA INSULIN PUMP 04/26/2024 Active Cholestyramine 4 GM Oral Packet (Questran) Take 1 Packet by mouth in the morning and 1 Packet before bedtime. mixed with liquid.. 60 Packet 1 05/13/2024 Active Pancrelipase (Kch-Vmab-Saak) 49607-28302 UNIT Oral Capsule Delayed Release Particles (Creon 42750) Take 1 tab before meals. 90 Capsule 08/06/2024 Active Lactulose 20 GM/30ML Oral Solution (Constulose) Take 15 mL by mouth once for 1 dose. 15 mL 08/12/2024 Active documented as of this encounter (statuses as of 08/12/2024) Active Problems Problem Noted Date Diagnosed Date Celiac disease 02/28/2015 Type 2 diabetes mellitus wit h hemoglobin A1c goal of less than 7.0% 08/10/2009 Overview: Per Diabetes Taxonomy. ICD-10 update of inactive term Allergic rhinitis documented as of this encounter (statuses as of 08/12/2024) Resolved Problems Problem Noted Date Diagnosed Date Resolved Date Type 2 diabetes mellitus wit h hemoglobin A1c goal of less than 7.0% 08/10/2009 Overview: Per Diabetes Taxonomy. ICD-10 update of inactive term documented as of this encounter (statuses as of 08/12/2024) Immunizations Name Administration Dates Next Due COVID-19 mRNA, LNP-s, No Pre serve, 2-Dose Series ([employer]) 12/19/2020,11/21/2020 Pneumococcal Polysaccharide PPV23 (Pneumovax) Seasonal Influenza, [...] Recorded Sex Assigned at Not on file Gender Identity Not on file Sexual Orientation Not on file Job Start Date Occupation Industry Not on file Not on file Not on file documented as of this encounter Miscellaneous Notes * Telephone Encounter - Ally Garrido OSA - 08/12/2024 2:10 PM EDT Lmm for pt. (Date saved 10/04/24 in [place] if agreeable) * Telephone Encounter - Ally Garrido OSA - 08/12/2024 2:01 PM EDT ----- Message from Shayan Florez MD sent at 08/12/2024 12:39 AM EDT ----- Please schedule EGD / cscopy within 6-8 weeks. With me. Any location. documented in this encounter Plan of Treatment Upcoming Encounters Date Type Department Care Team (Late st Contact Info) Description 08/26/2024 10:15 AM EST Appointment Radiology, [address] [place] [address] 08/26/2024 11:00 AM EST Appointment Radiology, [facility] [address] [address] 09/20/2024 4:00 PM EST Office Visit Gastroenterology, [facility] [address] [place] [address] Shayan Florez MD [address] [facility] [place] [address] 12/08/2024 2:00 PM EST Office Visit Gastroenterology, [facility] [address] [place] [address] Shayan Florez MD [address] [facility] [place] [address] Scheduled Procedures Name Priority Associated Diagnoses Date/Ti me COLONOSCOPY FLEXIBLE PROXIMA L DIAGNOSTIC Recall History of colonic polyps Health Maintenance Due Date Last Done Comments Depression Screening 1960 Albumin/Creatinine Ratio 1966 Diabetic Eye Exam 1966 Diabetic Foot Exam 1966 Hepatitis C Screening 1966 DTap/Tdap Vaccines (1 - Tdap) 1967 Zoster Vaccines (1 of 2) 1998 HbA1c 02/14/2015 08/17/2014 COVID-19 Vaccine ( season) 2024 07/29/2023, 08/09/2022, 02/17/2022, Additional history exists GFR 05/14/2025 05/14/2024, 04/12, 10/16/2020 Colonoscopy 09/23/2025 09/23/2022, 09/12, 04/04/2016 Pneumococcal Vaccine: 65+ Years Completed 01/28/2017, 10/25/2015, [...] documented as of this encounter Medical Devices Not on filedocumented as of this encounter Care Teams Landscape Laborer Relationship Specialty Start Date End Date Edison Godinez MD [facility] [place] [address] PCP - General Pulmonary Diseases 09/19/22 documented as of this encounter
--- OUTSIDE RECORDS SUMMARY | 2024-09-19 11:24 | External Medical Summary | Summary of Care ---
Author Name Unknown Organization [facility] Address [address] [place] [address] Phone [phone] Care Team Providers Care Risk Prevention Engineer Name Role Phone Edison Godinez MD Primary Care Provider [phone] Reason for Visit * Reason Onset Date Comments Appointment 08/12/2024 Encounter Details Date Type Department Care Team (Late st Contact Info) Description 08/12/2024 Telephone ENDO [facility], Endoscopy Suite [facility] [address] [place] [address] Shayan Florez MD [address] [place] [address] Appointment Allergies Active Allergy Reactions Criticality Noted Date Comments Bee Venom Anaphylaxis High 10/15/2019 Gluten 08/17/2014 Celiac disease Latex Itching 09/19/2022 Sneezing, itchy watery eyes, nasal drainage Molds & Smuts Allergy test positive 10/15/2019 Pollen Allergy test positive 10/15/2019 documented as of this encounter (statuses as of 08/23/2024) Medications NOVOLOG 100 UNIT/ML SUBQ SOLN use [...] liquid.. 60 Packet 1 05/13/20 24 Active Pancrelipase (Hhz-Lotm-Gjib) 61595-39[address] UNIT Oral Capsule Delayed Release Particles (Creon 90098) Take 1 tab before meals. 90 Capsule 08/06/20 24 Active Lactulose 20 GM/30ML Oral Solution (Constulose) Take 15 mL by mouth once for 1 dose. 15 mL 08/12/20 24 024 Discontin ued(Refil l) documented as of this encounter (statuses as of 08/23/2024) Active Problems Problem Noted Date Diagnosed Date Celiac disease 02/28/2015 Type 2 diabetes mellitus wit h hemoglobin A1c goal of less than 7.0% 08/10/2009 Overview (02/06/2016): Per Diabetes Taxonomy. ICD-10 update of inactive term Allergic rhinitis documented as of this encounter (statuses as of 08/23/2024) Resolved Problems Problem Noted Date Diagnosed Date Resolved Date Type 2 diabetes mellitus wit h hemoglobin A1c goal of less than 7.0% 08/10/2009 Overview (02/06/2016): Per Diabetes Taxonomy. ICD-10 update of inactive term documented as of this encounter (statuses as of 08/23/2024) Immunizations Name Administration Dates Next Due COVID-19 [...] Telephone Encounter - Ally Garrido OSA - 08/23/2024 3:56 PM EST Spoke to pt, he accepted 08/27/24 at . * Telephone Encounter - Ally Garrido OSA - 08/23/2024 3:42 PM EST Lmm for pt. Dr. Florez wants pt to be scheduled on 08/27/24 if possible. * Telephone Encounter - Destiney Arriaga OSA - 08/20/2024 12:58 PM EST Lmm to see if pt wants 10/04? * Telephone Encounter - Ally Garrido OSA - 08/12/2024 2:10 PM EDT Lmm for pt. (Date saved 10/04/24 in [place] if agreeable) * Telephone Encounter - Ally Garrido OSA - 08/12/2024 2:01 PM EDT ----- Message from Shayan Florez MD sent at 08/12/2024 12:39 AM EDT ----- Please schedule EGD / cscopy within 6-8 weeks. With me. Any location. documented in this encounter Plan of Treatment Upcoming Encounters Date Type Department Care Team (Latest Contact Info) Description 08/26/2024 10:15 AM EST Appointment Radiology, [address] [place] [address] 08/26/2024 11:00 AM EST Hospital Encounter Radiology, [address] [place] [address] 08/27/2024 10:15 AM EST Hospital Encounter ENDO [facility], Endoscopy Room [facility] [address] [place] [id number] Shayan Florez MD [address] [place] [address] 08/27/2024 10:15 AM EST - 08/27/2024 11:15 AM EST Surgery ENDO [facility], Endoscopy Room [facility] [address] [place] [phone] Shayan Florez MD [address] [place] [address] COLONOSCOPY FLEXIBLE PROXIMAL DIAGNOSTIC 09/20/2024 4:00 PM EST Office Visit Gastroenterology, [facility] [address] [place] [address] Shayan Florez MD [address] [place] [address] 12/08/2024 2:00 PM EST Office Visit Gastroenterology, [facility] [address] [place] [address] Shayan Florez MD [address] [place] [address] Scheduled Procedures Name Priority Associated Diagnoses Date/Ti me COLONOSCOPY FLEXIBLE PROXIMA L DIAGNOSTIC Recall History of colonic polyps Adult celiac disease 08/27/2024 10:15 AM EST ESOPHAGOGASTRODUODENOSCOPY ( EGD), FLEXIBLE, TRANSORAL, DIAGNOSTIC Recall History of colonic polyps Adult celiac disease 08/27/2024 10:15 AM EST Health Maintenance Due Date Last [...] filedocumented as of this encounter Care Teams Risk Prevention Engineer Relationship Specialty Start Date End Date Edison Godinez MD [facility] [place] [address] PCP - General Pulmonary Diseases 09/19/22 documented as of this encounter
--- OUTSIDE RECORDS SUMMARY | 2024-09-19 11:24 | External Medical Summary | Summary of Care ---
Author Name Unknown Organization [facility] Address [address] [place] [address] Phone [phone] Care Team Providers Care Hse Specialist Name Role Phone Edison Godinez MD Primary Care Provider [phone] Reason for Visit * Reason Onset Date Comments Appointment 08/12/2024 Encounter Details Date Type Department Care Team (Late st Contact Info) Description 08/12/2024 Telephone ENDO [facility], Endoscopy Suite [facility] [address] [place] [address] Shayan Florez MD [address] [place] [address] Appointment Allergies Active Allergy Reactions Criticality Noted [...] liquid.. 60 Packet 1 05/13/2024 Active Pancrelipase (Adp-Mwce-Lwsb) 94004-277[address] UNIT Oral Capsule Delayed Release Particles (Creon 17861) Take 1 tab before meals. 90 Capsule [...] mRNA, LNP-s, No Pre serve, 2-Dose Series (Opez) 12/19/2020,11/21/2020 Pneumococcal Polysaccharide PPV23 (Pneumovax) Seasonal Influenza, [...] Lmm for pt. (Date saved 10/04/24 in [place] if agreeable) * Telephone Encounter - Ally [...] Description 08/26/2024 10:15 AM EST Appointment Radiology, [address] [place] [address] 08/26/2024 11:00 AM EST Appointment Radiology, [facility] [address] [address] 09/20/2024 4:00 PM EST Office Visit Gastroenterology, [facility] [address] [place] [address] Shayan Florez MD 132 [facility] [place] [address] 12/08/2024 2:00 PM EST Office Visit Gastroenterology, [facility] [address] [place] [address] Shayan Florez MD [address] [facility] [place] [address] Scheduled Procedures Name Priority Associated Diagnoses Date/Ti [...] filedocumented as of this encounter Care Teams Hse Specialist Relationship Specialty Start Date End Date Edison Godinez MD [facility] [place] [address] PCP - General Pulmonary Diseases 09/19/22 documented as of this encounter
--- OUTSIDE RECORDS SUMMARY | 2024-09-19 11:24 | External Medical Summary | Summary of Care ---
Author Name Unknown Organization [facility] Address [address] [facility] [place] [address] Phone [phone] Care Team Providers Care Registered Dietetic Technician Name Role Phone Edison Godinez MD Primary Care Provider [phone] Reason for Visit * Reason Onset Date Comments Appointment 08/12/2024 Encounter Details Date Type Department Care Team (Late st Contact Info) Description 08/12/2024 Telephone ENDO [facility], Endoscopy Suite [facility] [address] [place] [address] Shayan Florez MD [address] [place] [address] Appointment Allergies Active Allergy Reactions Criticality Noted Date Comments Bee Venom Anaphylaxis High 10/15/2019 Gluten 08/17/2014 Celiac disease Latex Itching 09/19/2022 Sneezing, itchy watery eyes, nasal drainage Molds & Smuts Allergy test positive 10/15/2019 Pollen Allergy test positive 10/15/2019 documented as of this encounter (statuses as of 08/20/2024) Medications NOVOLOG 100 UNIT/ML SUBQ SOLN use [...] 60 Packet 1 05/13/20 24 Active Pancrelipase (Ncx-Yzkd-Zkva) 54473-66046 UNIT Oral Capsule Delayed Release Particles (Creon 37587) Take 1 tab before meals. 90 Capsule 08/06/20 24 Active Lactulose 20 GM/30ML Oral Solution (Constulose) Take 15 mL by mouth once for 1 dose. 15 mL 08/12/20 24 024 Discontin ued(Refil l) documented as of this encounter (statuses as of 08/20/2024) Active Problems Problem Noted Date Diagnosed Date Celiac disease 02/28/2015 Type 2 diabetes mellitus wit h hemoglobin A1c goal of less than 7.0% 08/10/2009 Overview (02/06/2016): Per Diabetes Taxonomy. ICD-10 update of inactive term Allergic rhinitis documented as of this encounter (statuses as of 08/20/2024) Resolved Problems Problem Noted Date Diagnosed Date Resolved Date Type 2 diabetes mellitus wit h hemoglobin A1c goal of less than 7.0% 08/10/2009 Overview (02/06/2016): Per Diabetes Taxonomy. ICD-10 update of inactive term documented as of this encounter (statuses as of 08/20/2024) Immunizations Name Administration Dates Next Due COVID-19 [...] encounter Miscellaneous Notes * Telephone Encounter - Destiney Arriaga OSA - 08/20/2024 12:58 PM EST Lmm to see if pt wants 10/04? * Telephone Encounter - Ally Garrido OSA - 08/12/2024 2:10 PM EDT Lmm for pt. (Date saved 10/04/24 in [place] if agreeable) * Telephone Encounter - Ally Garrido OSA - 08/12/2024 2:01 PM EDT ----- Message from Shayan Florez MD sent at 08/12/2024 12:39 AM EDT ----- Please schedule EGD / cscopy within 6-8 weeks. With me. Any location. documented in this encounter Plan of Treatment Upcoming Encounters Date Type Department Care Team (Latest Contact Info) Description 08/26/2024 10:15 AM EST Appointment Radiology, [address] [place] [address] 08/26/2024 11:00 AM EST Appointment Radiology, [address] [place] [address] 09/20/2024 4:00 PM EST Office Visit Gastroenterology, [facility] [address] [place] [address] Shayan Florez MD [address] [place] [address] 12/08/2024 2:00 PM EST Office Visit Gastroenterology, [facility] [address] [place] [address] Shayan Florez MD [address] [place] [address] 02/03/2025 10:15 AM EDT Hospital Encounter ENDO [facility], Endoscopy Room [facility] [address] [place] [address] Shayan Florez MD [address] [place] [address] 02/03/2025 10:15 AM EDT - 02/03/2025 11:15 AM EDT Surgery ENDO [facility], Endoscopy Room [facility] [address] [place] [address] Shayan Florez MD [address] [place] [address] COLONOSCOPY FLEXIBLE PROXIMAL DIAGNOSTIC Scheduled Procedures Name Priority Associated Diagnoses Date/Ti me COLONOSCOPY FLEXIBLE PROXIMA L DIAGNOSTIC Recall History of colonic polyps Adult celiac disease 02/03/2025 10:15 AM EDT ESOPHAGOGASTRODUODENOSCOPY ( EGD), FLEXIBLE, TRANSORAL, DIAGNOSTIC Recall History of colonic polyps Adult celiac disease 02/03/2025 10:15 AM EDT Health Maintenance Due Date Last Done Comments [...] filedocumented as of this encounter Care Teams Registered Dietetic Technician Relationship Specialty Start Date End Date Edison Godinez MD [facility] [place], [place] [address] PCP - General Pulmonary Diseases 09/19/22 documented as of this encounter
--- OUTSIDE RECORDS SUMMARY | 2024-09-19 11:24 | External Medical Summary | Summary of Care ---
Author Name Unknown Organization [facility] Address [address] [place] [facility] [place] [address] Phone [phone] Care Team Providers Care Corporate Development Manager Name Role Phone Edison Godinez MD Primary Care Provider [phone] Reason for Visit * Reason Onset Date Comments Med Request 08/13/2024 Encounter Details Date Type Department Care Team (Late st Contact Info) Description 08/13/2024 Refill Gastroenterology, [facility] [address] [place] [address] Shayan Florez MD [address] [place] [address] Diarrhea, unspecified type* Allergies Active Allergy Reactions Criticality Noted Date Comments Bee Venom Anaphylaxis High 10/15/2019 Gluten 08/17/2014 Celiac disease Latex Itching 09/19/2022 Sneezing, itchy watery eyes, nasal drainage Molds & Smuts Allergy test positive 10/15/2019 Pollen Allergy test positive 10/15/2019 documented as of this encounter (statuses as of 08/13/2024) Medications Medication Sig Dispensed Refills Start Date [...] liquid.. 60 Packet 1 05/13/2024 Active Pancrelipase (Bfu-Gnjn-Wacp) 11733-88767 UNIT Oral Capsule Delayed Release Particles (Creon 00328) Take 1 tab before meals. 90 Capsule 08/06/2024 Active Lactulose 20 GM/30ML Oral Solution (Constulose)Alannah cations:Diarrhea , unspecified type Take 15 mL by mouth once for 1 dose. 15 mL 08/13/2024 4 Active Lactulose 20 GM/30ML Oral Solution (Constulose) Take 15 mL by mouth once for 1 dose. 15 mL 08/12/2024 4 Discontinu ed(Refill) documented as of this encounter (statuses as of 08/13/2024) Active Problems Problem Noted Date Diagnosed Date Celiac disease 02/28/2015 Type 2 diabetes mellitus wit h hemoglobin A1c goal of less than 7.0% 08/10/2009 Overview: Per Diabetes Taxonomy. ICD-10 update of inactive term Allergic rhinitis documented as of this encounter (statuses as of 08/13/2024) Resolved Problems Problem Noted Date Diagnosed Date Resolved Date Type 2 diabetes mellitus wit h hemoglobin A1c goal of less than 7.0% 08/10/2009 Overview: Per Diabetes Taxonomy. ICD-10 update of inactive term documented as of this encounter (statuses as of 08/13/2024) Immunizations Name Administration Dates Next Due COVID-19 mRNA, LNP-s, No Pre serve, 2-Dose Series (Enlighted) 12/19/2020,11/21/2020 Pneumococcal Polysaccharide PPV23 (Pneumovax) Seasonal Influenza, [...] encounter Miscellaneous Notes * Telephone Encounter - Leah Tenorio DO - 08/13/2024 4:39 PM EDT Signed Prescriptions: Disp Refills Lactulose 20 GM/30ML Oral Solution (Constu*15 mL 0 Sig: Take 15 mL by mouth once for 1 dose.Authorizing Provider: LEAH TENORIO documented in this encounter Plan of Treatment Upcoming Encounters Date Type Department Care Team (Late st Contact Info) Description 08/26/2024 10:15 AM EST Appointment Radiology, [facility] [address] [place] [address] 08/26/2024 11:00 AM EST Appointment Radiology, [facility] [address] [place] [address] 09/20/2024 4:00 PM EST Office Visit Gastroenterology, [facility] [address] [place] [address] Shayan Florez MD [address] [place] [address] 12/08/2024 2:00 PM EST Office Visit Gastroenterology, [facility] [address] [place] [address] Shayan Florez MD [address] [place] [address] Scheduled Procedures Name Priority Associated Diagnoses Date/Ti [...] Not on filedocumented as of this encounter Visit Diagnoses Diagnosis Diarrhea, unspecified type- Primary documented in this encounter Care Teams Corporate Development Manager Relationship Specialty Start Date End Date Edison Godinez MD [facility] [place] [address] PCP - General Pulmonary Diseases 09/19/22 documented as of this encounter
--- OUTSIDE RECORDS SUMMARY | 2024-09-19 11:24 | External Medical Summary | Summary of Care ---
Author Name Unknown Organization [facility] [address] [place] [address] Phone [phone] Care Team Providers Care Facilities Locator Name Role Phone Edison Godinez MD Primary Care Provider [phone] Reason for Visit * Reason Onset Date Comments Appointment 08/04/2024 Encounter Details Date Type Department Care Team (Late st Contact Info) Description 08/04/2024 Telephone Radiology, [address] [address] Guero Andersen, RT Appointment Allergies Active Allergy Reactions Criticality Noted Date Comments Bee Venom Anaphylaxis High 10/15/2019 Gluten 08/17/2014 Celiac disease Latex Itching 09/19/2022 Sneezing, itchy watery eyes, nasal drainage Molds & Smuts Allergy test positive 10/15/2019 Pollen Allergy test positive 10/15/2019 documented as of this encounter (statuses as of 08/04/2024) Medications Medication Sig Dispensed Refills Start Date [...] with liquid.. 60 Packet 1 05/13/2024 Active documented as of this encounter (statuses as of 08/04/2024) Active Problems Problem Noted Date Diagnosed Date Celiac disease 02/28/2015 Type 2 diabetes mellitus wit h hemoglobin A1c goal of less than 7.0% 08/10/2009 Overview: Per Diabetes Taxonomy. ICD-10 update of inactive term Allergic rhinitis documented as of this encounter (statuses as of 08/04/2024) Resolved Problems Problem Noted Date Diagnosed Date Resolved Date Type 2 diabetes mellitus wit h hemoglobin A1c goal of less than 7.0% 08/10/2009 Overview: Per Diabetes Taxonomy. ICD-10 update of inactive term documented as of this encounter (statuses as of 08/04/2024) Immunizations Name Administration Dates Next Due COVID-19 mRNA, LNP-s, No Pre serve, 2-Dose Series ([place]) 12/19/2020,11/21/2020 Pneumococcal Polysaccharide PPV23 (Pneumovax) Seasonal Influenza, [...] encounter Miscellaneous Notes * Telephone Encounter - Guero Andersen RT - 08/04/2024 8:53 AM EDT Ready for mri Patient has pacemaker and will be able to come 08/26 at 1015am for cxr and 11am for MRI Routing to provider to place order for 2 view CXR for pacer lead integrity and have schedulers schedule at 10:15 Pt diabetic and knows CGM and pump will need removed prior to MRI; NPO at 7am and knows what to do if glucose levels drop documented in this encounter Plan of Treatment Upcoming Encounters Date Type Department Care Team (Late st Contact Info) Description 08/26/2024 10:15 AM EST Appointment Radiology, [address] [place] [address] 08/26/2024 11:00 AM EST Appointment Radiology, [address] [place] [address] 09/20/2024 4:00 PM EST Office Visit Gastroenterology, [facility] [address] [place] [address] Shayan Florez MD [address] [place] [address] 12/08/2024 2:00 PM EST Office Visit Gastroenterology, [facility] [address] [place] [address] Shayan Florez MD [address] [place] [address] Scheduled Procedures Name Priority Associated Diagnoses Date/Ti [...] filedocumented as of this encounter Care Teams Facilities Locator Relationship Specialty Start Date End Date Edison Godinez MD [facility] [place], [place] [address] PCP - General Pulmonary Diseases 09/19/22 documented as of this encounter
--- OUTSIDE RECORDS SUMMARY | 2024-09-19 11:24 | External Medical Summary | Summary of Care ---
Author Name Unknown Organization [facility] Address [address] [place] [address] Phone [phone] Care Team Providers Care Vest Backer Name Role Phone Edison Godinez MD Primary Care Provider [phone] Reason for Visit * Reason Onset Date Comments Appointment 08/12/2024 Encounter Details Date Type Department Care Team (Late st Contact Info) Description 08/12/2024 Telephone ENDO [facility], Endoscopy Suite [facility] [address] [place] [address] Shayan Folrez MD [address] [place] [address] Appointment Allergies Active Allergy Reactions Criticality Noted [...] 60 Packet 1 05/13/20 24 Active Pancrelipase (Dbn-Sdiy-Fxco) [id number] UNIT Oral Capsule Delayed Release Particles (Creon 33070) Take 1 tab before meals. 90 Capsule [...] Lmm for pt. (Date saved 10/04/24 in [place] if agreeable) * Telephone Encounter - Ally Garrido OSA - 08/12/2024 2:01 PM EDT ----- Message from Shayan Florez MD sent at 08/12/2024 12:39 AM EDT ----- Please schedule EGD / cscopy within 6-8 weeks. With me. Any location. documented in this encounter Plan of Treatment Upcoming Encounters Date Type Department Care Team (Latest Contact Info) Description 08/26/2024 10:15 AM EST Appointment Radiology, [address] [address] 08/26/2024 11:00 AM EST Hospital Encounter Radiology, [address] [address] 09/20/2024 4:00 PM EST Office Visit Gastroenterology, [facility] [address] [place] [address] Shayan Florez MD [address] [place] [address] 12/08/2024 2:00 PM EST Office Visit Gastroenterology, [facility] [address] [place] [address] Shayan Florez MD [address] [place] [address] 02/03/2025 10:15 AM EDT Hospital Encounter ENDO [facility], Endoscopy Room [facility] [address] [address] Shayan lForez MD [address] [place] [address] 02/03/2025 10:15 AM EDT - 02/03/2025 11:15 AM EDT Surgery ENDO [facility], Endoscopy Room [facility] [address] [place] [phone] Shayan Florez MD [address] [place] [address] COLONOSCOPY FLEXIBLE PROXIMAL DIAGNOSTIC Scheduled Procedures Name [...] filedocumented as of this encounter Care Teams Vest Backer Relationship Specialty Start Date End Date Edison Godinez MD [facility] [place] [address] PCP - General Pulmonary Diseases 09/19/22 documented as of this encounter
--- OUTSIDE RECORDS SUMMARY | 2024-09-19 11:24 | External Medical Summary | Summary of Care ---
Author Name Unknown Organization [facility] [address] [place] [address] Phone [phone] Care Team Providers Care Rice Field Worker Name Role Phone Edison Godinez MD Primary Care Provider [phone] Reason for Visit * Reason Onset Date Comments Appointment 08/03/2024 Encounter Details Date Type Department Care Team (Late st Contact Info) Description 08/03/2024 Telephone Radiology, [address] [address] Guero Andersen, [place] Appointment Allergies Active Allergy Reactions Criticality Noted Date Comments Bee Venom Anaphylaxis High 10/15/2019 Gluten 08/17/2014 Celiac disease Latex Itching 09/19/2022 Sneezing, itchy watery eyes, nasal drainage Molds & Smuts Allergy test positive 10/15/2019 Pollen Allergy test positive 10/15/2019 documented as of this encounter (statuses as of 08/03/2024) Medications Medication Sig Dispensed Refills Start Date [...] as of this encounter (statuses as of 08/03/2024) Active Problems Problem Noted Date Diagnosed Date Celiac disease 02/28/2015 Type 2 diabetes mellitus wit h hemoglobin A1c goal of less than 7.0% 08/10/2009 Overview: Per Diabetes Taxonomy. ICD-10 update of inactive term Allergic rhinitis documented as of this encounter (statuses as of 08/03/2024) Resolved Problems Problem Noted Date Diagnosed Date Resolved Date Type 2 diabetes mellitus wit h hemoglobin A1c goal of less than 7.0% 08/10/2009 Overview: Per Diabetes Taxonomy. ICD-10 update of inactive term documented as of this encounter (statuses as of 08/03/2024) Immunizations Name Administration Dates Next Due COVID-19 mRNA, LNP-s, No Pre serve, 2-Dose Series ([employer]) 12/19/2020,11/21/2020 Pneumococcal Polysaccharide PPV23 (Pneumovax) Seasonal Influenza, [...] Miscellaneous Notes * Telephone Encounter - Guero Andersen, RT - 08/03/2024 3:53 PM EDT Patient calling back in am to schedule-he was driving He is to schedule a pacer MRI with [employer] device documented in this encounter Plan of Treatment Upcoming Encounters Date Type Department Care Team (Late st Contact Info) Description 12/08/2024 2:00 PM EST Office Visit Gastroenterology, [facility] [address] [place] [address] Shayan Florez MD [address] [place] [address] Scheduled Procedures Name Priority Associated Diagnoses Date/Ti [...] filedocumented as of this encounter Care Teams Rice Field Worker Relationship Specialty Start Date End Date Edison Godinez MD [facility] [place] [address] PCP - General Pulmonary Diseases 09/19/22 documented as of this encounter
--- OUTSIDE RECORDS SUMMARY | 2024-09-19 11:24 | External Medical Summary | Summary of Care ---
Author Name Unknown Organization [facility] Address [address] [place] [address] Phone [phone] Care Team Providers Care Salesperson Men'S Hats Name Role Phone Edison Godinez MD Primary Care Provider [phone] Reason for Visit * Reason Comments eRx-Medication Refill Encounter Details Date Type Department Care Team (Late st Contact Info) Description 08/05/2024 Refill Gastroenterology, [facility] [address] [place] [address] Erica Napier MD [address] [place] [address] Allergies Active Allergy Reactions Criticality Noted Date Comments Bee Venom Anaphylaxis High 10/15/2019 Gluten 08/17/2014 Celiac disease Latex Itching 09/19/2022 Sneezing, itchy watery eyes, nasal drainage Molds & Smuts Allergy test positive 10/15/2019 Pollen Allergy test positive 10/15/2019 documented as of this encounter (statuses as of 08/06/2024) Medications Medication Sig Dispensed Refills Start Date End Date Status NOVOLOG 100 UNIT/ML SUBQ SOLN use 50 units daily via pump Active VITAMIN D3 3000 UNITS PO TABS 1000 units 2 capsules daily Active econazole nitrate (SPECTAZOLE) 1 % cream Apply to affected area twice daily as directed 3 6 Active FREESTYLE TEST STRP TEST 6 TIMES DAILY FOR USE WITH INSULIN PUMP TYPE 1 DIABETES MELLITUS (E10.9) 3 6 Active latanoprost (XALATAN) 0.005 % ophthalmic solution At bedtime 3 8 Active Zinc 25 MG Oral Tablet Take by mouth . Active Probiotic Acidophilus BioBeads Oral Capsule Take by mouth 1 Capsule in the morning. Active EPINEPHrine 0.3 MG/0.3ML Injection Solution Auto-injector (Autoinjector) Inject 0.3 mg into a large muscle once. Active Admelog 100 UNIT/ML Injection Solution INJECT 45 UNIT (0.45 ML) SUBCUTANEOUSLY DAILY VIA INSULIN PUMP 4 Active Cholestyramine 4 GM Oral Packet (Questran) Take 1 Packet by mouth in the morning and 1 Packet before bedtime. mixed with liquid.. 60 Packet 1 4 Active Pancrelipase (Tqq-Rcgn-Jkhc) 93594-87102 UNIT Oral Capsule Delayed Release Particles (Creon 59354) Take 1 tab before meals. 90 Capsule 4 Active Pancrelipase (Nfs-Bvwh-Stup) 75015-47314 UNIT Oral Capsule Delayed Release Particles (Creon 39539) Take 2 Capsules by mouth in the morning and 2 Capsules at noon and 2 Capsules in the evening. Take 2 capsules with meals, and 1 capsule with snacks. 180 Capsule 4 08/06/20 24 Discontinued Creon [id number] UNIT Oral Capsule Delayed Release Particles (Pancrelipase (Xkq-Yyum-Shhb)) Take 2 Capsules by mouth every evening. 60 Capsule 4 08/06/20 24 Discontinued documented as of this encounter (statuses as of 08/06/2024) Active Problems Problem Noted Date Diagnosed Date Celiac disease 02/28/2015 Type 2 diabetes mellitus wit h hemoglobin A1c goal of less than 7.0% 08/10/2009 Overview: Per Diabetes Taxonomy. ICD-10 update of inactive term Allergic rhinitis documented as of this encounter (statuses as of 08/06/2024) Resolved Problems Problem Noted Date Diagnosed Date Resolved Date Type 2 diabetes mellitus wit h hemoglobin A1c goal of less than 7.0% 08/10/2009 Overview: Per Diabetes Taxonomy. ICD-10 update of inactive term documented as of this encounter (statuses as of 08/06/2024) Immunizations Name Administration Dates Next Due COVID-19 [...] as of this encounter Miscellaneous Notes * Addendum Note - Erica Napier MD - 08/06/2024 4:06 PM EDTAddended by: ERICA NAPIER on: 08/06/2024 04:06 PM Modules accepted: Orders * Telephone Encounter - Erica Napier MD - 08/06/2024 4:05 PM EDT Signed Prescriptions: Disp Refills Creon [id number] UNIT Oral Capsule Delaye*60 Cap*0 Sig: Take 2 Capsules by mouth every evening. Authorizing Provider: ERICA NAPIER * Telephone Encounter - Jason Zuleta [facility] - 08/06/2024 12:51 PM EDTPending Prescriptions: Disp Refills Creon [id number] UNIT Oral Capsule Delaye*200 Ca* Sig: TAKE 2 CAPSULES BY MOUTH IN THE MORNING AND 2 CAPSULES AT NOON AND 2 CAPSULES IN THE EVENING. TAKE 2 CAPSULES WITH MEALS, AND 1 CAPSULE WITH SNACKS. documented in this encounter Plan of Treatment Upcoming Encounters Date Type Department Care Team (Late st Contact Info) Description 08/26/2024 10:15 AM EST Appointment Radiology, [address] [address] 08/26/2024 11:00 AM EST Appointment Radiology, [address] [address] 09/20/2024 4:00 PM EST Office Visit Gastroenterology, [facility] [address] [facility] [place] [address] Erica Napier MD [address] [facility] [place] [address] 12/08/2024 2:00 PM EST [facility] [address] [place] [address] Erica Napier MD [address] [place] [address] Scheduled Procedures Name Priority Associated Diagnoses Date/Ti [...] filedocumented as of this encounter Care Teams Salesperson Men'S Hats Relationship Specialty Start Date End Date Edison Godinez MD [facility] [place] [address] PCP - General Pulmonary Diseases 09/19/22 documented as of this encounter
--- OUTSIDE RECORDS SUMMARY | 2024-09-19 11:24 | External Medical Summary | Summary of Care ---
Author Name Unknown Organization [facility] Address [address] [place] [address] Phone [phone] Care Team Providers Care Urgent Care Physician Assistant Name Role Phone Edison Godinez MD Primary Care Provider [phone] Reason for Referral * Precert (Within 10 days (routine)) - Authorized Specialty Diagnoses / Procedures Referred By Evelio banegas Referred To Contact Radiology Diagnoses Pancreatic insufficiency Procedures MRI PANCREAS W WO CONTRAST MRI ABDOMEN W WO CONTRAST Shayan Florez MD [address] [place] [address] Phone: tel: fax: Referral ID Status Reason Start Date Expiration Date V isits Requested Visits Authorized [id number] Authorized 08/11/2024 02/07/2025 999 999 Reason for Visit * Precert (Within 10 days (routine)) - Authorized Specialty Diagnoses / Procedures Referred By Evelio banegas Referred To Contact Radiology Diagnoses Pancreatic insufficiency Procedures MRI PANCREAS W WO CONTRAST MRI ABDOMEN W WO CONTRAST Shayan Florez MD [address] [place] [address] Phone: tel: fax: Referral ID Status Reason Start Date Expiration Date V isits Requested Visits Authorized [id number] Authorized 08/11/2024 02/07/2025 999 999 Encounter Details Date Type Department Care Team (Latest Contact Info) Description 08/26/2024 10:01 AM EST - 08/26/2024 11:59 PM EST Hospital Encounter Radiology, [facility] [address] [place] [address] Arrived Discharge Disposition: Home - Self Care [...] Information Patient not taking.Reported on 08/24/2024 Pancrelipase (Wpe-Ykna-Dgzm) [id number] UNIT Oral Capsule Delayed Release Particles (Creon 90394) Take 1 tab before meals. 90 Capsule 08/06/20 24 Active Hospital, Clinic, or Other Facility Administered Medication Ordered Dose Route Frequency Start Date End Date Status sodium chloride 0.9 % flush/inj 10 mL 10 mL IV PUSH ONCE 08/26/2024 08/26/2024 Ended documented as of this encounter (statuses as [...] mRNA, LNP-s, No Pre serve, 2-Dose Series (Frontify) 12/19/2020,11/21/2020 Pneumococcal Polysaccharide PPV23 (Pneumovax) Seasonal Influenza, [...] as of this encounter Miscellaneous Notes * Ancillary Progress Note - Eli Barker RN - 08/26/2024 11:00 AM EST Pt here for MRI and has medtronic pacemaker. 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 Pt prepped for test. Crash cart in suite. Pacemaker interrogated and placed in to MRI safemode using [employer] Smart[employer]. Pt monitored during test, remained stable. Pacemaker returned to baseline settings at completion of MRI. documented in this encounter Plan of Treatment Upcoming Encounters Date Type Department Care Team (Late st Contact Info) Description 09/20/2024 4:00 PM EST Office Visit Gastroenterology, [facility] [address] [place] [address] Shayan Florez MD [address] [place] [address] 12/08/2024 2:00 PM EST Office Visit Gastroenterology, [facility] [address] [address] Shayan Florez MD [address] [place] [address] Scheduled Procedures Name Priority Associated Diagnoses Date/Ti [...] this encounter Medical Devices Implanted Type Area Jewellery Designer Device Identifier Shelf Expiration Date Model / Serial / Lot Capsurefix Novus Pacing Lead-02/11/2017 Rv Lead Implanted:11/2016 (Quantity not on file) Lead Right: Heart [employer] : CARDIAC SURGERY 5076-52 / [id number] / Capsurefix Novus Pacing Lead-02/11/2017 Atrial Lead Implanted:11/2016 (Quantity not on file) Lead Heart [employer] : CARDIAC SURGERY 5076-45 / [id number] / Advisa Mri-02/11/2017 Implanted:11/2016 (Quantity not on file) Pacemaker Heart [employer] : CARDIAC SURGERY [id number] / [id number] / documented as of this encounter Procedures Procedure Name Priority Date/Time Associated Diagnosis Comments MRI PANCREAS W WO CONTRAST Routine 08/26/2024 12:06 PM EST Pancreatic insufficiency documented in this encounter Results * MRI PANCREAS W WO CONTRAST (08/26/2024 12:06 PM EST) Anatomical Region Laterality Modality Abdomen Magnetic Resonan ce 08/26/2024 3:34 PM EST Impressions 08/26/2024 3:32 PM EST IMPRESSION A small cystic lesion in the body of the pancreas measuring 0.5 cm may be a side branch IPMN. A follow-up MRCP in 12 months is suggested for re-evaluation. The pancreas is otherwise unremarkable. Narrative 08/26/2024 3:32 PM EST EXAM MRI PANCREAS W WO CONTRAST-08/26/2024 12:06 pm HISTORY low fecal elastase, celiac, diabetes -- please eval for chronic panc COMPARISON None TECHNIQUE Multiplanar, multisequential MR imaging of the abdomen was performed before and after the administration of intravenous contrast. FINDINGS The heart is normal in size. There are no pleural effusions in the visualized lung bases. The liver is normal in size and contour. There are no liver lesions. The gallbladder is unremarkable. There is no biliary ductal dilation. There is a small cystic lesion in the body of the pancreas measuring 0.5 cm which may be a side branch IPMN (series 5, image 11). The pancreas is otherwise unremarkable. There is no pancreatic ductal dilation. The spleen is unremarkable. The adrenal glands are unremarkable. The kidneys are symmetric in size. There are no renal masses or hydronephrosis. The abdominal aorta is normal in size. There are no enlarged lymph nodes. The stomach is unremarkable. There is no evidence of small bowel obstruction. There is no evidence of colitis. The small and large bowel loops are partially seen on this exam. Procedure Note Teagan Lopez MD - 08/26/2024 EXAM MRI PANCREAS W WO CONTRAST-08/26/2024 12:06 pm HISTORY low fecal elastase, celiac, diabetes -- please eval for chronic panc COMPARISON None TECHNIQUE Multiplanar, multisequential MR imaging of the abdomen was performedbefore and after the administration of intravenous contrast. FINDINGS The heart is normal in size. There are no pleural effusions in thevisualized lung bases. The liver is normal in size and contour. There are no liver lesions. The gallbladder is unremarkable. There is no biliary ductal dilation. There is a small cystic lesion in the body of the pancreas measuring 0.5cm which may be a side branch IPMN (series 5, image 11). The pancreas isotherwise unremarkable. There is no pancreatic ductal dilation. The spleen is unremarkable. The adrenal glands are unremarkable. The kidneys are symmetric in size. There are no renal masses orhydronephrosis. The abdominal aorta is normal in size. There are no enlarged lymph nodes. The stomach is unremarkable. There is no evidence of small bowelobstruction. There is no evidence of colitis. The small and large bowelloops are partially seen on this exam. IMPRESSION IMPRESSION A small cystic lesion in the body of the pancreas measuring 0.5 cm may alexia side branch IPMN. A follow-up MRCP in 12 months is suggested forre-evaluation. The pancreas is otherwise unremarkable. us Shayan Florez MD RAD MRI-MRA Final R esult documented in this encounter Visit Diagnoses Diagnosis Pancreatic insufficiency Other specified disease of pancreas documented in this encounter Administered Medications Inactive Administered Medications - up to 3 most recent administrations Medication Order MAR Action Action Date Dose Rate Site gadobutrol (Gadavist) inj 2 mL 2 mL, Intravenous, ONCE, On Ángela 08/26/24 at 1101, For 1 dose, Radiology Medication Routing (Non-IR) Given 08/26/2024 11:52 AM EST 5.9 mL sodium chloride 0.9 % flush/inj 10 mL 10 mL, IV Push, ONCE, On Ángela 08/26/24 at 1101, For 1 dose, Do not flush if lock, PICC, or central line not in place; IV infusing or unable to flush., Radiology Medication Routing (Non-IR) Given 08/26/2024 11:11 AM EST 10 mL documented in this encounter Care Teams Urgent Care Physician Assistant Relationship Specialty Start Date End Date Edison Godinez MD [facility] [address] PCP - General Pulmonary Diseases 09/19/22 08/26/24 documented as of this encounter
--- OUTSIDE RECORDS SUMMARY | 2024-09-19 11:24 | External Medical Summary | Summary of Care ---
Author Name Unknown Organization [facility] Address [address] [place] [address] Phone [phone] Care Team Providers Care Stull Hewer Name Role Phone Edison Godinez MD Primary Care Provider [phone] Reason for Visit * Reason Comments eRx-Medication Refill Encounter Details Date Type Department Care Team (Late st Contact Info) Description 08/05/2024 Refill Gastroenterology, [facility] [address] [place] [address] Erica Napier MD [address] [place] [address] Allergies Active Allergy Reactions Criticality Noted Date [...] liquid.. 60 Packet 1 4 Active Pancrelipase (Ujv-Udxt-Aoii) 12380-05218 UNIT Oral Capsule Delayed Release Particles (Creon 30333) Take 1 tab before meals. 90 Capsule 4 Active Pancrelipase (Ffb-Wues-Xwyg) 59778-63606 UNIT Oral Capsule Delayed Release Particles (Creon 30134) Take 2 Capsules by mouth in the morning and 2 Capsules at noon and 2 Capsules in the evening. Take 2 capsules with meals, and 1 capsule with snacks. 180 Capsule 4 08/06/20 24 Discontinued Creon 37954-77713 UNIT Oral Capsule Delayed Release Particles (Pancrelipase (Cpj-Jrhp-Ptse)) Take 2 Capsules by mouth every evening. [...] PM EDT Signed Prescriptions: Disp Refills Creon [id number] UNIT Oral Capsule Delaye*60 Cap*0 Sig: Take 2 Capsules by mouth every evening. Authorizing Provider: ERICA NAPIER * Telephone Encounter - Jsaon Zuleta [facility] - 08/06/2024 12:51 PM EDTPending Prescriptions: Disp Refills Creon [id number] UNIT Oral Capsule Delaye*200 Ca* Sig: TAKE 2 CAPSULES BY MOUTH IN THE MORNING AND 2 CAPSULES AT NOON AND 2 CAPSULES IN THE EVENING. TAKE 2 CAPSULES WITH MEALS, AND 1 CAPSULE WITH SNACKS. documented in this encounter Plan of Treatment Upcoming Encounters Date Type Department Care Team (Late st Contact Info) Description 08/26/2024 10:15 AM EST Appointment Radiology, [address] [address] 08/26/2024 11:00 AM EST Appointment Radiology, [address] [address] 09/20/2024 4:00 PM EST Office Visit Gastroenterology, [facility] [address] [facility] [place] [address] Erica Napier MD [address] [facility] [place] [address] 12/08/2024 2:00 PM EST [facility] [address] [place] [address] Ercia Napier MD [address] [place] [address] Scheduled Procedures Name Priority Associated Diagnoses Date/Ti [...] filedocumented as of this encounter Care Teams Stull Hewer Relationship Specialty Start Date End Date Ediosn Godinez MD [facility] [place] [address] PCP - General Pulmonary Diseases 09/19/22 documented as of this encounter
--- OUTSIDE RECORDS SUMMARY | 2024-09-19 11:24 | External Medical Summary ---
Author Name Unknown Address Unknown Organization : Laboratory Report Ordering Provider Test Date Status KARTHIKEYAN MALDONADO 08/27/2024 09:50:40 Final Observation Date Value Abnormality Reference (Units ) Status Glucose Point of Care 08/27/2024 09:50:40 176 Above high normal 70-120 (mg/dL) Final Performing Location
== END 2024-09-18 14:04 | disposition home or self-care (01) | DRG 390 ==
LOC: ED 09:51 → EDINP 13:55 → SUATTDRO 13:55 → INTOOBSV 13:55 → 3W 17:11
DX: Z85.46 Personal history of malignant neoplasm of prostate; N40.0 Benign prostatic hyperplasia without lower urinary tract symptoms; E03.8 Other specified hypothyroidism; H91.90 Unspecified hearing loss, unspecified ear; Z79.899 Other long term (current) drug therapy; Z79.4 Long term (current) use of insulin; Z90.6 Acquired absence of other parts of urinary tract; K90.0 Celiac disease; E10.9 Type 1 diabetes mellitus without complications; Z96.41 Presence of insulin pump (external) (internal); K56.609 Unspecified intestinal obstruction, unspecified as to partial versus complete obstruction; Z95.0 Presence of cardiac pacemaker; K58.1 Irritable bowel syndrome with constipation